=== PATIENT | female | born 1955 | race Caucasian/White ===

== ENCOUNTER 2016-11-22 17:13 | Emergency (ER) | payer BC, OTHER ==
[~2016-11-22] VITALS: Ht 170.2 cm; Wt 54.9 kg
--- NOTE | ~2016-11-22 | EKG ---
[address] [address] ELECTROCARDIOGRAM REPORT Name: RANDYLIZABETHZASYDNEY [id number] Admission: 11/22/16 Attend Phys: Discharge: 11/22/16 Date of : 55 Report #: [id number] THIS REPORT FOR: //name// [facility] ED Test Date: 2016-11-22 Test Time: 17:43:39 Pat Name: SYDNEY STEINBERG Department: Room: Gender: F Metal Inspector: [id number] : 1955 Requested By: Finesse Francis Order Number: [id number] MD: Bret Silva Measurements Intervals [place] Rate: 76 P: 40 TN: 147 QRS: 37 QRSD: 80 T: 65 QT: 385 QTc: 433 Interpretive Statements Sinus rhythm Compared to ECG 08/23/2016 09:33:51 Possible ischemia no longer present Electronically Signed On 11-23-2016 8:24:08 KENNEL WORKER by Bret Silva [email or web address] <ELECTRONICALLY SIGNED> By: Bret Silva MD 11/23/16823 42 42 Bret Silva MD /DEMARIO
[~2016-11-22 17:13] MED LIST: AMBIEN 5 MG TABL5 M1 PO; AMLODIPINE BESYL5 M1 PO; CIPROFLOXACIN500 M1 PO; DIPHENHYDRAM50 MG/M2 IV PUSH; EFFEXOR XR37.5 MG PO; FLAGYL500 MG PO; GLUCOPHAGE XR500 MG PO; GLUCOTROL5 MG PO; HYDROCODONE-AP1 EAC6 PO; K-DUR 20 MEQ T20 MEQ PO; LEVEMIR SUBQ; LISINOPRIL20 MG PO; MAGNESIUM OXID400 MG PO; MOBIC7.5 MG PO; NORCO 5-325 TA1 EACH PO; NORVASC 5 MG TAB5 MG PO; NOVOLOG100 UNIT/1 SUBQ; ONDANSETRON HCL4 M1 IV PUSH; ONDANSETRON HCL4 M1 PO; PERCOCET 5-3251 EACH PO; POTASSIUM20 PO; PROTONIX40 M1 PO; REGLAN 10 MG TA10 MG PO; TRADJENTA5 MG PO; TRAZODONE HCL50 MG PO; ZANTAC 150MG T150 MG; ZANTAC 150MG T150 MG PO; ZOFRAN ODT4 MG PO
[2016-11-22 17:40] LABS: URINE BILIRUBIN NEGATIVE (Negative); URINE BLOOD NEGATIVE (Negative); URINE COLOR YELLOW; URINE GLUCOSE-RANDOM* 2+ (Negative); URINE KETONES 1+ (Negative); URINE LEUKOCYTES-REFLEX TRACE (Negative); URINE PROTEIN (DIPSTICK) NEGATIVE (Negative); URINE UROBILINOGEN 0.2 E.U./dl (0.2-1.0)
[2016-11-22 17:55] LABS: ABSOLUTE NEUTROPHILS 6.5 thou/uL (1.4-8.2); BASOPHILS 0.8 % (0.0-2.0); EOSINOPHILS 2.9 % (0.0-3.0); HEMATOCRIT 32.3 % (37.0-47.0); HEMOGLOBIN 10.8 gm/dL (12.0-15.0); LYMPHOCYTES 17.6 % (24.0-44.0); MANUAL DIFF NO; MCH 29.1 pg (26.0-34.0); MCHC 33.5 % (28.0-37.0); MCV 86.7 fL (80.0-100.0); MONOCYTES 6.3 % (1.0-8.0); PLATELET COUNT 371 thou/uL (150-400); POLYS 72.4 % (36.0-66.0); RBC 3.72 mil/uL (4.20-5.00); RDW 15.8 % (10.5-14.5)
[2016-11-22 18:03] LABS: CALCIUM 9.5 mg/dL (8.5-10.1); CREATININE 0.8 mg/dL (0.6-1.3); POTASSIUM 4.5 mmol/L (3.5-5.1)
[2016-11-22 18:10] LABS: ALBUMIN 3.6 g/dL (3.4-5.0); TOTAL BILIRUBIN 0.4 mg/dL (<0.1-1.0); TOTAL PROTEIN 7.5 g/dL (6.4-8.2)
[2016-11-22] MEDS ORDERED: POTASSIUM20 MEQ/15 PO (18:14)
[2016-12-14] MEDS ORDERED: NEXIUM40 MG PO (10:28)
[2016-12-14] MEDS ORDERED: ERYTHROMYCIN250 M1 PO (10:28)
== END 2016-11-22 19:16 | disposition home or self-care (01) ==
LOC: ER 17:13
PROVIDERS: Emergency Medicine
DX: R53.1 Weakness (principal); E11.9 Type 2 diabetes mellitus without complications; Z90.49 Acquired absence of other specified parts of digestive tract; Z90.81 Acquired absence of spleen

== ENCOUNTER 2017-06-05 14:00 | Inpatient (IN) | payer BC, OTHER ==
[~2017-06-05] VITALS: Ht 167.6 cm; Wt 63.7 kg
[~2017-06-05 14:00] MED LIST changes: +ERYTHROMYCIN250 M1 PO; +NEXIUM40 MG PO; +POTASSIUM20 MEQ/15 PO
[2017-06-05 14:01] VITALS: BP 129/73
[2017-06-05 14:40] LABS: ABSOLUTE NEUTROPHILS 6.2 thou/uL (1.4-8.2); BASOPHILS 0.8 % (0.0-2.0); EOSINOPHILS 0.5 % (0.0-3.0); HEMATOCRIT 27.6 % (37.0-47.0); HEMOGLOBIN 8.8 gm/dL (12.0-15.0); LYMPHOCYTES 15.8 % (24.0-44.0); MCH 23.9 pg (26.0-34.0); MCHC 31.9 g/dL (28.0-37.0); MCV 75.1 fL (80.0-100.0); MONOCYTES 7.1 % (1.0-8.0); PLATELET COUNT 403 thou/uL (150-400); POLYS 75.8 % (36.0-66.0); RBC 3.68 mil/uL (4.20-5.00); RDW 17.3 % (10.5-14.5); WBC 8.2 thou/uL (4.0-11.0)
[2017-06-05 14:42] LABS: MANUAL DIFF NO
[2017-06-05 14:48] LABS: CALCIUM 9.6 mg/dL (8.5-10.1); CREATININE 1.1 mg/dL (0.6-1.0)
[2017-06-05 14:52] LABS: ALBUMIN 3.5 g/dL (3.4-5.0); TOTAL BILIRUBIN 0.6 mg/dL (<0.1-1.0); TOTAL PROTEIN 8.1 g/dL (6.4-8.2)
[2017-06-05 16:51] LABS: URINE BILIRUBIN NEGATIVE (Negative); URINE BLOOD TRACE (Negative); URINE COLOR YELLOW; URINE GLUCOSE-RANDOM* 2+ (Negative); URINE KETONES TRACE (Negative); URINE LEUKOCYTES-REFLEX TRACE (Negative); URINE PROTEIN (DIPSTICK) NEGATIVE (Negative); URINE UROBILINOGEN 0.2 E.U./dl (0.2-1.0)
[2017-06-05 17:21] VITALS: BP 121/69
[2017-06-05 18:00] VITALS: BP 152/89
[2017-06-05] MEDS ORDERED: LEVEMIR SUBQ (18:20)
[2017-06-05] MEDS ORDERED: CYMBALTA30 MG PO (18:21)
[2017-06-05 20:20] VITALS: BP 152/84
[2017-06-06 00:20] VITALS: BP 141/88
[2017-06-06 04:00] VITALS: BP 118/78
[2017-06-06 05:49] LABS: HEMATOCRIT 23.7 % (37.0-47.0); HEMOGLOBIN 7.7 gm/dL (12.0-15.0); MCH 24.1 pg (26.0-34.0); MCHC 32.2 g/dL (28.0-37.0); MCV 74.7 fL (80.0-100.0); RBC 3.18 mil/uL (4.20-5.00); RDW 16.8 % (10.5-14.5); WBC 8.2 thou/uL (4.0-11.0)
[2017-06-06 05:55] LABS: CALCIUM 8.7 mg/dL (8.5-10.1); CREATININE 0.8 mg/dL (0.6-1.0); POTASSIUM 3.7 mmol/L (3.5-5.1)
[2017-06-06 07:40] VITALS: BP 123/77
[2017-06-06] MEDS ORDERED: AMBIEN 5 MG TABL5 MG PO (07:58)
[2017-06-06 15:39] VITALS: BP 196/106
[2017-06-06 19:56] VITALS: BP 152/82
[2017-06-07 03:28] VITALS: BP 166/95
[2017-06-07 08:00] VITALS: BP 146/82
[2017-06-07 09:13] LABS: HEMOGLOBIN 7.6 gm/dL (12.0-15.0); MCH 23.9 pg (26.0-34.0); MCHC 31.5 g/dL (28.0-37.0); MCV 75.8 fL (80.0-100.0); RBC 3.16 mil/uL (4.20-5.00); RDW 17.1 % (10.5-14.5); WBC 7.5 thou/uL (4.0-11.0)
[2017-06-07 09:23] LABS: CALCIUM 8.3 mg/dL (8.5-10.1); CREATININE 0.6 mg/dL (0.6-1.0); POTASSIUM 3.3 mmol/L (3.5-5.1)
[2017-06-07 16:49] VITALS: BP 171/92
[2017-06-07 19:48] VITALS: BP 152/79
[2017-06-08 04:13] VITALS: BP 164/87
[2017-06-08 08:00] VITALS: BP 152/82
[2017-06-08 09:40] LABS: HEMATOCRIT 23.3 % (37.0-47.0); HEMOGLOBIN 7.2 gm/dL (12.0-15.0); MCH 23.4 pg (26.0-34.0); MCV 75.5 fL (80.0-100.0); RBC 3.09 mil/uL (4.20-5.00); RDW 17.4 % (10.5-14.5); WBC 6.5 thou/uL (4.0-11.0)
[2017-06-08 09:55] LABS: % SATURATION 6 % (20-39); CALCIUM 8.5 mg/dL (8.5-10.1); CREATININE 0.8 mg/dL (0.6-1.0); IRON 19 ug/dL (50-170); POTASSIUM 3.3 mmol/L (3.5-5.1); TIBC 316 ug/dL (250-450); UIBC 297 ug/dL
[2017-06-08 10:07] LABS: FOLIC ACID 12.3 ng/mL (8.6-58.9)
[2017-06-08 16:00] VITALS: BP 176/77
[2017-06-08 20:05] VITALS: BP 185/99
[2017-06-08 22:29] VITALS: BP 135/78; BP 177/94
[2017-06-09 04:00] VITALS: BP 196/96
[2017-06-09 06:35] VITALS: BP 188/89; BP 188/97
[2017-06-09 07:45] VITALS: BP 124/63
[2017-06-09 08:51] LABS: HEMATOCRIT 30.7 % (37.0-47.0); MCH 24.8 pg (26.0-34.0); MCHC 31.8 g/dL (28.0-37.0); RBC 3.94 mil/uL (4.20-5.00); WBC 6.9 thou/uL (4.0-11.0)
[2017-06-09 08:52] LABS: HEMOGLOBIN 9.8 gm/dL (12.0-15.0)
[2017-06-09 09:15] VITALS: BP 111/55
[2017-06-09 16:18] VITALS: BP 169/103
[2017-06-09 20:15] VITALS: BP 153/85
[2017-06-10 04:15] VITALS: BP 197/106
[2017-06-10 08:35] VITALS: BP 96/49
[2017-06-10 10:15] VITALS: BP 112/65
[2017-06-10 11:25] VITALS: BP 123/79
[2017-06-10 11:55] LABS: HEMATOCRIT 28.9 % (37.0-47.0); HEMOGLOBIN 9.4 gm/dL (12.0-15.0); MCH 25.1 pg (26.0-34.0); MCHC 32.5 g/dL (28.0-37.0); MCV 77.3 fL (80.0-100.0); RBC 3.74 mil/uL (4.20-5.00); RDW 18.5 % (10.5-14.5)
[2017-06-10 12:02] LABS: CALCIUM 9.2 mg/dL (8.5-10.1); CREATININE 0.9 mg/dL (0.6-1.0); POTASSIUM 4.1 mmol/L (3.5-5.1)
[2017-06-10 20:00] VITALS: BP 188/94
[2017-06-10 23:00] VITALS: BP 96/54
[2017-06-11 04:00] VITALS: BP 150/89
[2017-06-11 05:07] LABS: HEMATOCRIT 27.6 % (37.0-47.0); HEMOGLOBIN 8.8 gm/dL (12.0-15.0); MCH 24.9 pg (26.0-34.0); MCHC 31.9 g/dL (28.0-37.0); MCV 78.2 fL (80.0-100.0); RBC 3.53 mil/uL (4.20-5.00); RDW 19.1 % (10.5-14.5); WBC 7.9 thou/uL (4.0-11.0)
[2017-06-11 05:19] LABS: CREATININE 0.8 mg/dL (0.6-1.0); POTASSIUM 3.7 mmol/L (3.5-5.1)
[2017-06-11 08:35] VITALS: BP 140/71
[2017-06-11 16:40] VITALS: BP 151/85
[2017-06-11 20:00] VITALS: BP 158/85
[2017-06-12 04:00] VITALS: BP 151/87
[2017-06-12 05:18] LABS: HEMATOCRIT 27.7 % (37.0-47.0); MCH 25.1 pg (26.0-34.0); MCHC 32.3 g/dL (28.0-37.0); MCV 77.5 fL (80.0-100.0); RBC 3.58 mil/uL (4.20-5.00); RDW 19.2 % (10.5-14.5); WBC 7.9 thou/uL (4.0-11.0)
[2017-06-12 05:31] LABS: CALCIUM 8.5 mg/dL (8.5-10.1); CREATININE 0.6 mg/dL (0.6-1.0); POTASSIUM 3.6 mmol/L (3.5-5.1)
[2017-06-12 08:00] VITALS: BP 138/93
[2017-06-12 13:40] VITALS: BP 78/49
[2017-06-12] MEDS ORDERED: MIRALAX17 GM PO (15:21)
[2017-06-12] MEDS ORDERED: NEXIUM40 MG PO (15:21)
[2017-06-12] MEDS ORDERED: CALTRATE-600 W1 EACH PO (15:21)
[2017-06-12] MEDS ORDERED: IRON325 PO (15:21)
[2017-06-12] MEDS ORDERED: COLACE100 MG PO (15:21)
[2017-06-12] MEDS ORDERED: COZAAR 25 MG TA25 M1 PO (15:21)
[2017-06-12] MEDS ORDERED: CARAFATE 11 GM/10 M1 PO (15:21)
[2017-06-12] MEDS ORDERED: ZOFRAN ODT4 MG DISSOLVE (15:22)
== END 2017-06-12 17:20 | DRG 563 ==
LOC: ER 14:00 → EROBS 16:44 → 3N 16:44
PROVIDERS: Emergency Medicine; Hospitalist; Internal Medicine
PROC: 0D758ZZ Dilation of Esophagus, Via Natural or Artificial Opening Endoscopic (ICD-10-PCS; principal; 2017-06-02)
PROC: 30233N1 Transfusion of Nonautologous Red Blood Cells into Peripheral Vein, Percutaneous Approach (ICD-10-PCS; 2017-06-05)
DX: S42.294A Other nondisplaced fracture of upper end of right humerus, initial encounter for closed fracture (principal); N17.9 Acute kidney failure, unspecified; K22.2 Esophageal obstruction; W18.39XA Other fall on same level, initial encounter; E11.43 Type 2 diabetes mellitus with diabetic autonomic (poly)neuropathy; K31.84 Gastroparesis; E11.42 Type 2 diabetes mellitus with diabetic polyneuropathy; E11.319 Type 2 diabetes mellitus with unspecified diabetic retinopathy without macular edema; D50.9 Iron deficiency anemia, unspecified; K21.0 Gastro-esophageal reflux disease with esophagitis; E86.0 Dehydration; I10 Essential (primary) hypertension; E11.649 Type 2 diabetes mellitus with hypoglycemia without coma; R13.10 Dysphagia, unspecified; H54.8 Legal blindness, as defined in USA; Z79.899 Other long term (current) drug therapy; Y93.89 Activity, other specified; Y92.89 Other specified places as the place of occurrence of the external cause; Y99.8 Other external cause status; Z79.4 Long term (current) use of insulin; Z86.718 Personal history of other venous thrombosis and embolism; Z79.01 Long term (current) use of anticoagulants; Z90.81 Acquired absence of spleen; Z90.49 Acquired absence of other specified parts of digestive tract; Z86.010 Personal history of colon polyps
CPT/HCPCS: 10094; 62110; 62900; 70005

== ENCOUNTER 2018-04-08 12:53 | Inpatient (IN) | payer OTHER ==
[~2018-04-08] VITALS: Ht 172.7 cm; Wt 66.2 kg
--- NOTE | ~2018-04-08 | EKG ---
[address] [address] ELECTROCARDIOGRAM REPORT Name: SYDNEY STEINBERG Room #: 426-P ADM IN .R.#: [id number] Admission: 04/08/18 Attend Phys: Gary Haq MD Discharge: Date of : 55 Report #: [id number] THIS REPORT FOR: //name// [facility] ED Test Date: 2018-04-08 Test Time: 12:59:18 Pat Name: SYDNEY STEINBERG Department: Room: Gender: F Action Finisher: : 1955 Requested By: Solo Recinos Order Number: [id number] MD: Bret Silva Measurements Intervals [place] Rate: 95 P: 69 MN: 133 QRS: 38 QRSD: 82 T: 43 QT: 360 QTc: 453 Interpretive Statements Sinus rhythm Baseline wander in lead(s) V1 Compared to ECG 12/10/2016 14:39:21 Ventricular premature complex(es) no longer present Electronically Signed On 04-08-2018 18:42:20 CDT by Bret Silva [email or web address] <ELECTRONICALLY SIGNED> By: Bret Silva MD 04/08/18 1842 1259 1259 Bret Silva MD /EPI
--- NOTE | ~2018-04-08 | HC ---
[facility] [place] [address] CONSULTATION Name: SYDNEY STEINBERG Room #: 227-P [facility] IN M.R.#: [id number] Admission: 04/08/18 Attend Phys: Gary Haq MD Discharge: 04/14/18 Date of : 55 Report #: [id number] THIS REPORT FOR: //name// CC: Luis F Mack DATE OF SERVICE: 04/12/2018 GENERAL SURGERY CONSULT REFERRING PROVIDER: Gloria Lombardi DO REASON FOR CONSULTATION: Nausea and vomiting. HISTORY OF PRESENT ILLNESS: The patient is a 62-year-old thin female with a past surgical history approximately 40 years ago what sounds like a vertical stapled gastroplasty done via the open technique. The patient lost considerable weight and then had weight regained for which she then underwent what sounds like gastric banding with emergent reexploration on postoperative day #1 due to gastric perforation with explantation of the gastric band at that time. The patient was exquisitely septic and hospitalized for 7 weeks and is unsure of what type of repair was performed at that time, which again was nearly 35 years ago. The patient was in her usual state of health for the past several years until approximately 1.5 years ago when she developed severe sudden onset nausea, vomiting and abdominal pain with workup showing severely delayed gastric emptying, even while on erythromycin. Her most recent gastric emptying study showed only 1% emptying at [address] scan showed mild colitis. The patient underwent an EGD this morning showing severe erosive esophagitis with a stricture and gastritis for which she underwent dilatation of her esophageal stricturing. In addition, the patient had abnormal gastric anatomy seen with 2 discrete lumens able to be intubated, both arrive at the prepyloric region. As the patient has severe gastroparesis with nausea, vomiting and esophageal stricturing in the setting of abnormal gastric anatomy, I am asked to evaluate from a surgical standpoint. PAST MEDICAL HISTORY: Severe gastroparesis with chronic nausea and vomiting; GERD; esophageal stricturing; intermittent dysphagia; prior ischemic colitis, treated conservatively; hypertension; diabetes mellitus; prior DVT; peripheral blindness; neuropathy; iron deficiency anemia. PAST SURGICAL HISTORY: Vertical stapled gastroplasty with lap band placement and emergent reexploration as well as prior splenectomy, cholecystectomy and left oophorectomy. HOME MEDICATIONS: Calcium, hydrocodone, MiraLax, Cymbalta, erythromycin, [address] [address] CONSULTATION Name: SYDNEY STEINBERG Room #: 227-P [facility] IN [facility].#: [id number] Admission: 04/08/18 Attend Phys: Gary Haq MD Discharge: 04/14/18 Date of : 55 Report #: [id number] insulin, metformin, Zantac, Ambien, Nexium and iron. ALLERGIES: No known drug allergies. SOCIAL HISTORY: The patient does not utilize tobacco, alcohol or illicit drugs. FAMILY HISTORY: Reviewed and noncontributory. REVIEW OF SYSTEMS: GENERAL: The patient denies nocturnal fevers or chills. HEENT: No change in vision, change in hearing. NECK: No swelling, but difficulty swallowing. HEART: No chest pain or palpitations. LUNGS: No cough or shortness of breath. ABDOMEN: Chronic abdominal pain, nausea and vomiting. GENITOURINARY: No dysuria or hematuria. ENDOCRINE: No polyuria or polydipsia. HEMATOLOGIC: No history of bleeding or easy bruising. EXTREMITIES: No history of weakness or limited range of motion. NEUROLOGIC: No history of syncope or near syncopal episodes. SKIN AND INTEGUMENT: No history of abnormal lesions or moles. PSYCHIATRIC: Significant history of depression with suicidal ideation. PHYSICAL EXAMINATION: VITAL SIGNS: Temperature 98.9, pulse 93, respirations 17, blood pressure 120/73. She weighs 146 pounds. GENERAL: Alert and oriented, in no acute distress. HEENT: Normocephalic, atraumatic. Pupils equal, round, reactive to light. NECK: Supple, without lymphadenopathy. Trachea midline. HEART: Regular rate and rhythm. LUNGS: Clear to auscultation bilaterally. ABDOMEN: Soft, nondistended. She does not complain of abdominal pain per se, but does have generalized discomfort. No guarding, rebound or peritoneal signs or symptoms and her wounds are well healed. GENITOURINARY: Normal external female genitalia. EXTREMITIES: No clubbing, cyanosis or edema. NEUROLOGIC: Cranial nerves 2-12 are grossly intact. PSYCHIATRIC: Normal mood and affect, although she does have suicidal ideation, stating she wants to commit suicide by insulin overdose. SKIN AND INTEGUMENT: No abnormal lesions or moles. LABORATORY AND X-RAY DATA: Most recent CBC showed a white blood cell count of 6.2 thousand, hemoglobin 10.1, platelets 271,000. Creatinine was 0.6. EGD as per HPI shows abnormal gastric anatomy and CT scan shows prior colitis. ASSESSMENT AND PLAN: A 62-year-old female with a complex past [facility] [address] [place] [address] CONSULTATION Name: SYDNEY STEINBERG Room #: 227-P [facility] IN M.Ammy.#: [id number] Admission: 04/08/18 Attend Phys: Gary Haq MD Discharge: 04/14/18 Date of : 55 Report #: [id number] surgical history of the upper GI tract, who has chronic abdominal pain, nausea, vomiting and an esophageal stricture and then underwent dilatation as well as severe gastroparesis. At this time, I will obtain an upper GI swallow to further delineate her anatomy and we will leave further recommendations pending that result. I did carry out a greater than 60-minute discussion with the patient today at the bedside gathering her past medical and surgical history, performing a thorough physical exam as well as discussing all of the above with her as well as with Dr. Lombardi of the Gastroenterology Service. I sincerely appreciate this consult. I will follow closely and leave any further recommendations in the patient's chart as appropriate. By: 1140 1738 Freddie Beauchamp MD, FACS /nt
--- NOTE | ~2018-04-08 | PATH ---
[facility] [address] [place] [address] PATHOLOGY RPT PROCEDURE Name: CHINYERE STEINBERG Room #: 426-P ADM IN M.R.#: [id number] Admission: 04/08/18 Date of : 55 Discharge: Report #: [id number] Path Case #: [id number] [facility] Accession Number: [id number] . 01 Material submitted: . ANTRAL BX - R/O H. PYLORI . 01 Post-operative diagnosis: . Gastritis. . 02 Diagnosis: Gastric mucosa, antrum gastritis, endoscopic biopsy: - Marked reactive gastropathy associated with fibrotic lamina propria. - No active fibrinopurulent material present in biopsy tissue. - Negative for intestinal metaplasia or atrophy. - Negative for Helicobacter pylori (properly controlled immunohistochemical stain performed). . (IUV:mml; 04/12/2018) QLM/04/12/2018 . 02 Electronically signed: . Mae Molina MD, Pathologist NPI- [id number] . 01 Gross description: . Received in formalin labeled "Alaina Chinyere, antral BX-rule out H. pylori," are 3 segments of anders soft tissue measuring 0.6 x 0.5 x 0.2 cm in aggregate dimensions and ranging from 0.3-0.4 cm in maximum dimension. The specimen is submitted entirely in cassette A1. (TSD; 04/11/2018) TOB/TOB . 02 Pathologist provided ICD-10: K31.9 . 02 CPT . 525720, H38419 Performed at: [address], [place], [place] [id number] MD Justin Hamilton MD Phone: [phone] Performed at: [address] [id number] MD Mae Molina MD Phone: [phone]
[~2018-04-08 12:53] MED LIST changes: +AMBIEN 5 MG TABL5 MG PO; +CALTRATE-600 W1 EACH PO; +CARAFATE 11 GM/10 M1 PO; +COLACE100 MG PO; +COZAAR 25 MG TA25 M1 PO; +CYMBALTA30 MG PO; +IRON325 PO; +MIRALAX17 GM PO; +ZOFRAN ODT4 MG DISSOLVE
[2018-04-08 13:36] VITALS: BP 148/91
[2018-04-08 14:12] LABS: HEMATOCRIT 34.2 % (37.0-47.0); HEMOGLOBIN 11.3 gm/dL (12.0-15.0); MCH 30.1 pg (26.0-34.0); MCHC 33.2 g/dL (28.0-37.0); MCV 90.7 fL (80.0-100.0); PLATELET COUNT 313 thou/uL (150-400); RBC 3.77 mil/uL (4.20-5.00); RDW 13.7 % (10.5-14.5); WBC 6.3 thou/uL (4.0-11.0)
[2018-04-08 14:14] LABS: URINE BILIRUBIN NEGATIVE (Negative); URINE BLOOD 1+ (Negative); URINE COLOR YELLOW; URINE GLUCOSE-RANDOM* TRACE (Negative); URINE KETONES 3+ (Negative); URINE PROTEIN (DIPSTICK) TRACE (Negative); URINE SPECIFIC GRAVITY 1.025 (1.005-1.035); URINE UROBILINOGEN 0.2 E.U./dl (0.2-1.0)
[2018-04-08 14:15] LABS: CALCIUM 9.1 mg/dL (8.5-10.1); CREATININE 0.7 mg/dL (0.6-1.0); MAGNESIUM 1.7 mg/dL (1.8-2.4); POTASSIUM 3.6 mmol/L (3.5-5.1)
[2018-04-08 14:18] LABS: URINE CLARITY SLIGHTLY CLOUDY; URINE LEUKOCYTES-REFLEX 3+ (Negative); URINE NITRITE-REFLEX POSITIVE (Negative)
[2018-04-08 14:23] LABS: CASTS None Seen /LPF (None Seen); SQUAMOUS 4-10 Moderate /LPF (0-3); URINE WBC-REFLEX >25 Many /HPF (0-5)
[2018-04-08 14:26] LABS: AMORPHOUS PHOSPHATES Moderate /LPF (None Seen); URINE RBC 0-2 Rare /HPF (0-2); YEAST-REFLEX Present (None Seen)
[2018-04-08 14:40] LABS: ABSOLUTE NEUTROPHILS 4.4 thou/uL (1.4-8.2)
[2018-04-08] MEDS ORDERED: LANTUS100 UNIT/M SUBQ (15:06)
[2018-04-08] MEDS ORDERED: NEXIUM40 MG PO (15:08)
[2018-04-08 17:19] VITALS: BP 181/101
[2018-04-08 17:38] VITALS: BP 191/87
[2018-04-08 21:30] VITALS: BP 150/76
[2018-04-09 05:00] VITALS: BP 127/66
[2018-04-09 06:03] LABS: HEMATOCRIT 30.5 % (37.0-47.0); HEMOGLOBIN 10.3 gm/dL (12.0-15.0); MCH 30.5 pg (26.0-34.0); MCHC 33.8 g/dL (28.0-37.0); RBC 3.39 mil/uL (4.20-5.00); RDW 13.6 % (10.5-14.5); WBC 6.5 thou/uL (4.0-11.0)
[2018-04-09 06:15] LABS: CALCIUM 8.5 mg/dL (8.5-10.1); CREATININE 0.7 mg/dL (0.6-1.0); POTASSIUM 3.3 mmol/L (3.5-5.1)
[2018-04-09 07:45] VITALS: BP 140/69
[2018-04-09 19:23] VITALS: BP 142/81
[2018-04-10 03:42] VITALS: BP 142/80
[2018-04-10 05:43] LABS: HEMOGLOBIN 10.1 gm/dL (12.0-15.0); MCH 30.6 pg (26.0-34.0); MCHC 33.7 g/dL (28.0-37.0); MCV 90.6 fL (80.0-100.0); RBC 3.31 mil/uL (4.20-5.00); RDW 13.4 % (10.5-14.5); WBC 6.2 thou/uL (4.0-11.0)
[2018-04-10 06:02] LABS: CALCIUM 8.2 mg/dL (8.5-10.1); CREATININE 0.6 mg/dL (0.6-1.0); POTASSIUM 3.1 mmol/L (3.5-5.1)
[2018-04-10 07:56] VITALS: BP 169/85
[2018-04-10 15:56] VITALS: BP 187/98
[2018-04-10 20:00] VITALS: BP 137/88
[2018-04-11 04:22] VITALS: BP 130/65
[2018-04-11 07:53] VITALS: BP 158/92
[2018-04-11 20:03] VITALS: BP 188/81
[2018-04-11 21:31] VITALS: BP 121/70
[2018-04-12 04:06] VITALS: BP 126/85
[2018-04-12 11:00] VITALS: BP 120/73
[2018-04-12 16:34] VITALS: BP 171/103
[2018-04-13 07:37] LABS: HEMATOCRIT 30.9 % (37.0-47.0); HEMOGLOBIN 10.5 gm/dL (12.0-15.0); MCH 30.3 pg (26.0-34.0); MCHC 33.9 g/dL (28.0-37.0); MCV 89.2 fL (80.0-100.0); RBC 3.46 mil/uL (4.20-5.00); WBC 5.8 thou/uL (4.0-11.0)
[2018-04-13 07:46] LABS: CALCIUM 8.4 mg/dL (8.5-10.1); CREATININE 0.6 mg/dL (0.6-1.0)
[2018-04-13 07:57] LABS: POTASSIUM 2.7 mmol/L (3.5-5.1)
[2018-04-13 08:12] VITALS: BP 137/79
[2018-04-13 19:25] VITALS: BP 167/92
[2018-04-14 01:46] LABS: HEMATOCRIT 28.5 % (37.0-47.0); HEMOGLOBIN 9.7 gm/dL (12.0-15.0); MCH 30.7 pg (26.0-34.0); MCHC 34.3 g/dL (28.0-37.0); MCV 89.6 fL (80.0-100.0); RBC 3.18 mil/uL (4.20-5.00); RDW 13.7 % (10.5-14.5); WBC 6.4 thou/uL (4.0-11.0)
[2018-04-14 01:54] LABS: CALCIUM 8.3 mg/dL (8.5-10.1); CREATININE 0.6 mg/dL (0.6-1.0); POTASSIUM 3.1 mmol/L (3.5-5.1)
[2018-04-14 08:12] VITALS: BP 147/83
[2018-04-14] MEDS ORDERED: CARAFATE 11 GM/10 M1 PO (14:11)
[2018-04-14] MEDS ORDERED: PROTONIX40 M1 PO (14:11)
[2018-04-14] MEDS ORDERED: REGLAN 10 MG TA10 MG PO (14:20)
[2018-04-14] MEDS ORDERED: LEVAQUIN 750 M750 MG PO (14:25)
[2018-04-14] MEDS ORDERED: FLAGYL500 M1 PO (14:25)
[2018-04-14 14:26] VITALS: BP 147/83
== END 2018-04-14 17:32 | disposition home or self-care (01) | DRG 74 ==
LOC: ER 12:53 → EROBS 16:27 → 4E 16:27 → ER 17:41 → 4E 17:50 → SICU 04-12 22:33
PROVIDERS: Hospitalist; Physician Assistant
PROC: 0D758ZZ Dilation of Esophagus, Via Natural or Artificial Opening Endoscopic (ICD-10-PCS; principal; 2018-04-11)
PROC: 0DB68ZX Excision of Stomach, Via Natural or Artificial Opening Endoscopic, Diagnostic (ICD-10-PCS; principal; 2018-04-11)
DX: E11.43 Type 2 diabetes mellitus with diabetic autonomic (poly)neuropathy (principal); N39.0 Urinary tract infection, site not specified; K22.10 Ulcer of esophagus without bleeding; K21.0 Gastro-esophageal reflux disease with esophagitis; K29.70 Gastritis, unspecified, without bleeding; K52.9 Noninfective gastroenteritis and colitis, unspecified; H54.8 Legal blindness, as defined in USA; F32.9 Major depressive disorder, single episode, unspecified; E11.319 Type 2 diabetes mellitus with unspecified diabetic retinopathy without macular edema; K22.2 Esophageal obstruction; K31.84 Gastroparesis; R63.4 Abnormal weight loss; Z68.22 Body mass index [BMI] 22.0-22.9, adult; Z90.49 Acquired absence of other specified parts of digestive tract; Z90.81 Acquired absence of spleen; Z98.84 Bariatric surgery status; Z79.4 Long term (current) use of insulin; Z79.899 Other long term (current) drug therapy
CPT/HCPCS: 10084; 15002; 62110; 62900; 70005

== ENCOUNTER 2018-05-08 09:57 | Emergency (ER) | payer OTHER ==
[~2018-05-08] VITALS: Ht 172.7 cm; Wt 64.9 kg
--- NOTE | ~2018-05-08 | EKG ---
[address] [address] ELECTROCARDIOGRAM REPORT Name: SYDNEY STEINBERG [facility] [id number] Admission: 05/08/18 Attend Phys: Discharge: 05/08/18 Date of : 55 Report #: [id number] THIS REPORT FOR: //name// [facility] ED Test Date: 2018-05-08 Test Time: 10:15:14 Pat Name: SYDNEY STEINBERG Department: Room: Gender: F Search Engine Optimizer: JENNIFER : 1955 Requested By: Solo Recinos Order Number: [id number] MD: Yung Rizvi Measurements Intervals [place] Rate: 80 P: 67 WI: 140 QRS: 38 QRSD: 94 T: 63 QT: 372 QTc: 430 Interpretive Statements Sinus rhythm Normal tracing Compared to ECG 04/08/2018 12:59:18 No significant changes Electronically Signed On 05-08-2018 16:49:48 CDT by Yung Rizvi [email or web address] <ELECTRONICALLY SIGNED> By: Yung Rizvi MD, [facility] 05/08/18 1649 1015 1015 Yung Rizvi MD, FACC /EPI
[~2018-05-08 09:57] MED LIST changes: +FLAGYL500 M1 PO; +LANTUS100 UNIT/M SUBQ; +LEVAQUIN 750 M750 MG PO
[2018-05-08 10:27] LABS: HEMATOCRIT 34.6 % (37.0-47.0); HEMOGLOBIN 11.3 gm/dL (12.0-15.0); MCH 29.4 pg (26.0-34.0); MCHC 32.7 g/dL (28.0-37.0); MCV 89.9 fL (80.0-100.0); PLATELET COUNT 315 thou/uL (150-400); RBC 3.85 mil/uL (4.20-5.00); RDW 14.3 % (10.5-14.5); WBC 8.6 thou/uL (4.0-11.0)
[2018-05-08 10:28] LABS: URINE BLOOD NEGATIVE (Negative); URINE CLARITY CLEAR; URINE COLOR YELLOW; URINE GLUCOSE-RANDOM* 2+ (Negative); URINE KETONES TRACE (Negative); URINE LEUKOCYTES-REFLEX NEGATIVE (Negative); URINE NITRITE-REFLEX NEGATIVE (Negative); URINE PROTEIN (DIPSTICK) NEGATIVE (Negative); URINE SPECIFIC GRAVITY 1.025 (1.005-1.035); URINE UROBILINOGEN 0.2 E.U./dl (0.2-1.0)
[2018-05-08 10:30] LABS: ICTOTEST (BILI CONFIRMATORY) Negative (Negative); URINE BILIRUBIN NEGATIVE (Negative)
[2018-05-08 10:41] LABS: ANION GAP 2 mmol/L (7-16); BUN 24 mg/dL (7-18); CALCIUM 10.2 mg/dL (8.5-10.1); CHLORIDE 103 mmol/L (98-107); CO2 33 mmol/L (21-32); CREATININE 0.8 mg/dL (0.6-1.0); GLUCOSE 247 mg/dL (74-106); POTASSIUM 3.9 mmol/L (3.5-5.1); SODIUM 138 mmol/L (136-145)
[2018-05-08 10:50] LABS: ALBUMIN 3.2 g/dL (3.4-5.0); SGOT 34 U/L (15-37); SGPT 36 U/L (30-65); TOTAL BILIRUBIN 0.5 mg/dL (<0.1-1.0); TOTAL PROTEIN 7.6 g/dL (6.4-8.2); TROPONIN-I <0.06 ng/mL (<0.06)
[2018-05-08 11:48] LABS: ABSOLUTE NEUTROPHILS 6.5 thou/uL (1.4-8.2); ANISOCYTOSIS SLIGHT
== END 2018-05-08 14:45 | disposition home or self-care (01) ==
LOC: ER 09:57
PROVIDERS: Physician Assistant
DX: I95.1 Orthostatic hypotension (principal); M54.9 Dorsalgia, unspecified; R53.1 Weakness; E11.40 Type 2 diabetes mellitus with diabetic neuropathy, unspecified; Z90.49 Acquired absence of other specified parts of digestive tract

== ENCOUNTER → 2018-05-09 | Outpatient (CLI) | payer OTHER ==
[~2018-05-09] VITALS: Ht 172.7 cm; Wt 63.8 kg
[2018-05-09 09:20] VITALS: BP 142/92
== END ==
LOC: SEN 08:50
DX: Z09 Encounter for follow-up examination after completed treatment for conditions other than malignant neoplasm (principal); I10 Essential (primary) hypertension; E13.40 Other specified diabetes mellitus with diabetic neuropathy, unspecified; K31.84 Gastroparesis; K29.70 Gastritis, unspecified, without bleeding; K22.2 Esophageal obstruction; R53.1 Weakness

== ENCOUNTER → 2018-05-15 | Outpatient (CLI) | payer OTHER ==
[~2018-05-15] MED LIST changes: +PREDNISONE 20 M20 MG PO
== END ==
LOC: HYPER 06:49
DX: E11.621 Type 2 diabetes mellitus with foot ulcer (principal); L97.521 Non-pressure chronic ulcer of other part of left foot limited to breakdown of skin; S80.811D Abrasion, right lower leg, subsequent encounter; E11.40 Type 2 diabetes mellitus with diabetic neuropathy, unspecified; E11.36 Type 2 diabetes mellitus with diabetic cataract; E11.43 Type 2 diabetes mellitus with diabetic autonomic (poly)neuropathy; K31.84 Gastroparesis; X58.XXXD Exposure to other specified factors, subsequent encounter; Z79.4 Long term (current) use of insulin

== ENCOUNTER 2018-05-22 09:12 | Emergency (ER) | payer OTHER ==
[~2018-05-22] VITALS: Ht 172.7 cm; Wt 62.1 kg
[~2018-05-22 09:12] MED LIST changes: -PREDNISONE 20 M20 MG PO
[2018-05-22 09:44] LABS: ABSOLUTE NEUTROPHILS 8.3 thou/uL (1.4-8.2); BASOPHILS 0.6 % (0.0-2.0); EOSINOPHILS 1.5 % (0.0-3.0); HEMATOCRIT 32.9 % (37.0-47.0); HEMOGLOBIN 10.9 gm/dL (12.0-15.0); LYMPHOCYTES 9.7 % (24.0-44.0); MCH 30.1 pg (26.0-34.0); MCHC 33.2 g/dL (28.0-37.0); MCV 90.7 fL (80.0-100.0); MONOCYTES 8.3 % (1.0-8.0); PLATELET COUNT 346 thou/uL (150-400); POLYS 79.9 % (36.0-66.0); RBC 3.63 mil/uL (4.20-5.00); RDW 15.2 % (10.5-14.5); WBC 10.3 thou/uL (4.0-11.0)
[2018-05-22 09:57] LABS: CALCIUM 8.8 mg/dL (8.5-10.1); CREATININE 0.8 mg/dL (0.6-1.0); POTASSIUM 3.9 mmol/L (3.5-5.1)
[2018-05-22 10:03] LABS: ALBUMIN 2.7 g/dL (3.4-5.0); TOTAL BILIRUBIN 0.4 mg/dL (<0.1-1.0); TOTAL PROTEIN 7.1 g/dL (6.4-8.2)
[2018-05-22 10:58] LABS: PROTIME 10.1 Seconds (9.3-11.4)
[2018-05-22] MEDS ORDERED: PERCOCET 5-3251 EACH PO (11:11)
[2018-05-22] MEDS ORDERED: PREDNISONE 20 M20 MG PO (11:12)
[2018-05-22] MEDS ORDERED: MIRALAX17 GM PO (11:15)
== END 2018-05-22 11:37 | disposition home or self-care (01) ==
LOC: ER 09:12
PROVIDERS: Physician Assistant
DX: M54.12 Radiculopathy, cervical region (principal); R51 Headache; R74.0 Nonspecific elevation of levels of transaminase and lactic acid dehydrogenase [LDH]; G62.9 Polyneuropathy, unspecified; I95.9 Hypotension, unspecified; E11.40 Type 2 diabetes mellitus with diabetic neuropathy, unspecified; E11.319 Type 2 diabetes mellitus with unspecified diabetic retinopathy without macular edema; Z90.81 Acquired absence of spleen; Z90.49 Acquired absence of other specified parts of digestive tract

== ENCOUNTER 2018-06-17 15:47 | Emergency (ER) | payer OTHER ==
[~2018-06-17] VITALS: Ht 172.7 cm; Wt 66.2 kg
[~2018-06-17 15:47] MED LIST changes: +ERYTHROCIN STE250 MG PO; +PEPCID20 MG PER TUBE; +PREDNISONE 20 M20 MG PO; +VITAMIN D1000 UNI1 PO
[2018-06-17 16:17] LABS: HEMATOCRIT 29.4 % (37.0-47.0); HEMOGLOBIN 9.7 gm/dL (12.0-15.0); MCH 29.7 pg (26.0-34.0); MCV 89.9 fL (80.0-100.0); PLATELET COUNT 496 thou/uL (150-400); RBC 3.28 mil/uL (4.20-5.00); RDW 16.9 % (10.5-14.5); WBC 7.5 thou/uL (4.0-11.0)
[2018-06-17 16:53] LABS: CALCIUM 9.3 mg/dL (8.5-10.1); CREATININE 0.7 mg/dL (0.6-1.0); POTASSIUM 4.2 mmol/L (3.5-5.1)
[2018-06-17 16:53] LABS: ABSOLUTE NEUTROPHILS 5.3 thou/uL (1.4-8.2); ANISOCYTOSIS 1+
[2018-06-23] MEDS ORDERED: LANTUS SUBQ (00:03)
== END 2018-06-17 21:35 | disposition home or self-care (01) ==
LOC: ER 15:47
PROVIDERS: Emergency Medicine
DX: E10.649 Type 1 diabetes mellitus with hypoglycemia without coma (principal); E10.40 Type 1 diabetes mellitus with diabetic neuropathy, unspecified; Z90.49 Acquired absence of other specified parts of digestive tract; Z79.4 Long term (current) use of insulin

== ENCOUNTER 2018-08-24 11:49 | Inpatient (IN) | payer OTHER ==
[~2018-08-24] VITALS: Ht 175.3 cm; Wt 65.3 kg
[2018-08-24] VITALS (7 sets, daily range): BP systolic 162–182; BP diastolic 88–104
--- NOTE | ~2018-08-24 | O ---
[facility] [place] [address] OPERATIVE REPORT Name: SYDNEY STEINBERG Room #: 454-P ADM IN M.R.#: [id number] Admission: 08/24/18 Attend Phys: Bandar Layne MD Discharge: Date of : 55 Report #: [id number] THIS REPORT FOR: //name// CC: Luis F Layne DATE OF SERVICE: 08/24/2018 PREOPERATIVE DIAGNOSIS: Left ankle open bimalleolar ankle fracture. POSTOPERATIVE DIAGNOSIS: Left ankle open bimalleolar ankle fracture. PROCEDURE: Irrigation and debridement with open reduction and internal fixation open left ankle bimalleolar fracture. SURGEON: Bandar Layne M.D. PEDIATRIC ANESTHESIOLOGIST: Lashell Orona. ANESTHESIA: General. ESTIMATED BLOOD LOSS: 10 mL. DRAINS: One Hemovac drain was placed to the wound. COMPLICATIONS: There were no complications. DESCRIPTION OF PROCEDURE: The patient brought to the operating room where she was placed under general anesthesia. Once under adequate general anesthesia, her left lower extremity was prepped and draped in a sterile manner. The extremity was elevated and a tourniquet placed to 300 mmHg. A longitudinal incision excising the open wound over the distal fibula was then made. This was then taken sharply down to the fibula. The joint as well as the fracture site were then irrigated copiously utilizing normal saline and the pulsatile lavage. Three liters of solution was run through this. The fibular fracture was then subsequently exposed and reduced with a bone reduction tenaculum. This was a transverse fracture. It was then fixed into place with two 4.0 cannulated screws placed under fluoroscopic guidance. Excellent fixation and alignment of the fibular fracture was achieved. I then proceeded medially and the medial fracture was identified. Through a 4-cm incision, exposure of the fracture site was achieved. Any hematoma was evacuated from the fracture site and a bone reduction was achieved with bone reduction tenaculums. Three 4.0 cannulated screws were then placed to fix this fracture. Satisfactory alignment was achieved in this manner as well. Once complete, the wounds were irrigated copiously with pulsatile lavage once again 3 liters of normal saline and the wounds were then closed with 2-0 Vicryl in the subcutaneous tissues and korin [address] [address] OPERATIVE REPORT Name: SYDNEY STEINBERG Room #: 454-P [facility] IN .R.#: [id number] Admission: 08/24/18 Attend Phys: Bandar Layne MD Discharge: Date of : 55 Report #: [id number] for the skin laterally where the open wound was closed with 3-0 nylon suture. A Hemovac drain had been placed prior to wound closure. The wounds were dressed with Xeroform, 4 x 4s, and sterile soft compressive dressing with a short leg splint was placed. Tourniquet was let down at approximately 1 hour. Toes were pink and warm with good capillary refill. There were no complications from the procedure. The patient tolerated the procedure well and went to recovery room without incident. <ELECTRONICALLY SIGNED> By: Bandar Layne MD 08/28/18 1235 1617 1825 Bandar Layne MD /nt
--- NOTE | ~2018-08-24 | HC ---
[facility] [address] [place] [address] CONSULTATION Name: SYDNEY FOLEY Room #: 454-P ADM IN M.R.#: [id number] Admission: 08/24/18 Attend Phys: Bandar Layne MD Discharge: Date of : 55 Report #: [id number] THIS REPORT FOR: //name// CC: Luis F Layne DATE OF SERVICE: 08/25/2018 CONSULTATION: Infectious diseases. HISTORY OF PRESENT ILLNESS: Ms. Foley is a 62-year-old white female who returns to the hospital with deterioration of her left ankle fracture. This was a closed malleolar fracture when the patient presented after a fall on 08/07. She also had a distal tibia fracture on the right leg. The patient was discharged on 08/10 to [facility] for nonweightbearing and upper extremity strengthening. She had a Cam walker boot on the left and a long leg cast on the right. The patient reports that the day prior to this readmission, the nurse removed her boot and thought the ankle looked worse. She saw her orthopedist the following day who noted that the fracture was now comminuted and open on the left. She was admitted for urgent surgery including irrigation, debridement, open reduction, and internal fixation with 3 screws. Infectious disease consultation was requested to assist with further evaluation and management. PAST MEDICAL HISTORY: Includes rheumatoid arthritis, diabetes, depression, anxiety. PAST SURGICAL HISTORY: Includes lap-band band for obesity, splenectomy, cholecystectomy, gastrostomy due to gastroparesis. She suffered fractures of both legs, as well as her right arm and closed head injury. FAMILY HISTORY: Noncontributory. SOCIAL HISTORY: The patient is , but her has to work and has not been able to give her the amount of support at home that she needs. In this setting, the patient was sent for additional rehab after multiple falls and fractures. MEDICATION RECONCILIATION: Current medications include insulin, duloxetine 30 mg daily, flu vaccine, pantoprazole 40 mg b.i.d., zolpidem 10 mg at bedtime, enoxaparin 40 mg at bedtime, vancomycin, and morphine p.r.n. REVIEW OF SYSTEMS: The patient says she does not feel very good. She is anxious, a bit nauseated. She notes that she has very little postoperative pain. She thinks the nerve block may still be active. She is having more pain [address] [address] CONSULTATION Name: SYDNEY FOLEY Room #: 454-P [facility] IN .R.#: [id number] Admission: 08/24/18 Attend Phys: Bandar Layne MD Discharge: Date of : 55 Report #: [id number] in her right leg, which did not have any recent surgery. The patient denies any new head or neck complaints. She has marked visual impairment from diabetes. She denies any cough, chest pain, shortness of breath. She denies vomiting, trouble with her bowels or abdominal pain. She denies urinary pain. PHYSICAL EXAMINATION: GENERAL: The patient appears older than her stated age, debilitated, but not in any distress. VITAL SIGNS: Normal. The patient is afebrile. SKIN: Shows no rash or lesions. ENT: Negative. HEART: Sounds normal. LUNGS: Clear. ABDOMEN: Belly thin, soft, not tender. EXTREMITIES: The patient had post-surgical dressing on the left leg going from the distal foot to the knee. There was a Hemovac drain with minimal bloody drainage exiting around the ankle. The right leg was in a long leg cast from the mid thigh to the ankle. This was then unwrapped. LABORATORY DATA: There are no laboratory studies yet. At her previous hospitalization 2 weeks ago showed BUN 24, creatinine 0.7. Cultures are taken to surgery. Results are pending. IMPRESSION: Open compound fracture of the left ankle after being in a penitentiary for 2 weeks. I concur with vancomycin, as one can anticipate nosocomial type rachid from the facility. We will await results of cultures. We will want to check a CBC and BMP after surgery. This may be important for optimal dosing of vancomycin if she requires continue therapy. I appreciate the opportunity of input in the care of this pleasant patient. I will follow over the weekend until Dr. Kennedy returns on Monday. Thank you again for this consultation. <ELECTRONICALLY SIGNED> By: Kirk Craig MD 08/26/18 2317 1859 0441 Kirk Craig MD /nt
[~2018-08-24 11:49] MED LIST changes: +CALCIUM 600 +1 EA13 PO; +HYDROCODON-ACE1 EAC7 PO; +LANTUS SUBQ; +PROTONIX40 M2 PO; +VOLTAREN GEL 1100 G2 TOP; +[UNRECOGNIZED DRUG - OTHER] PER TUBE
[2018-08-25 04:41] VITALS: BP 152/90
[2018-08-25 05:42] VITALS: BP 117/75
[2018-08-25 07:55] LABS: HEMATOCRIT 27.8 % (37.0-47.0); HEMOGLOBIN 9.1 gm/dL (12.0-15.0)
[2018-08-25 08:07] LABS: POTASSIUM 5.5 mmol/L (3.5-5.1)
[2018-08-25 08:15] VITALS: BP 127/75
[2018-08-25 20:00] VITALS: BP 847/52
[2018-08-26 05:37] LABS: RDW 16.2 % (10.5-14.5); WBC 10.4 thou/uL (4.0-11.0)
[2018-08-26 05:38] LABS: ABSOLUTE NEUTROPHILS 7.6 thou/uL (1.4-8.2); BASOPHILS 0.4 % (0.0-2.0); EOSINOPHILS 0.3 % (0.0-3.0); HEMATOCRIT 23.8 % (37.0-47.0); HEMOGLOBIN 7.9 gm/dL (12.0-15.0); LYMPHOCYTES 19.3 % (24.0-44.0); MCHC 33.4 g/dL (28.0-37.0); MCV 86.9 fL (80.0-100.0); MONOCYTES 6.6 % (1.0-8.0); PLATELET COUNT 688 thou/uL (150-400); POLYS 73.4 % (36.0-66.0); RBC 2.73 mil/uL (4.20-5.00)
[2018-08-26 05:45] LABS: CALCIUM 8.3 mg/dL (8.5-10.1); CREATININE 0.8 mg/dL (0.6-1.0); POTASSIUM 4.8 mmol/L (3.5-5.1)
[2018-08-26 08:00] VITALS: BP 152/79
[2018-08-26 19:33] VITALS: BP 109/52
[2018-08-27 08:00] VITALS: BP 173/84
[2018-08-27 19:54] VITALS: BP 158/84
[2018-08-28 07:46] VITALS: BP 181/98
[2018-08-28] MEDS ORDERED: CEFTRIAXON1 GM/50 M1 IVPB (09:40)
[2018-08-28] MEDS ORDERED: VANCO 1 GR1 GM/250 M IVPB (09:40)
== END 2018-08-28 15:58 | DRG 493 ==
LOC: PRE 11:49 → 4W 13:18 → TBA 13:18 → 4W 17:32
PROVIDERS: Internal Medicine Infectious Disease; Orthopaedic Surgery Foot and Ankle Surgery
PROC: 0QSH04Z Reposition Left Tibia with Internal Fixation Device, Open Approach (ICD-10-PCS; principal; 2018-08-24)
PROC: 0QSK04Z Reposition Left Fibula with Internal Fixation Device, Open Approach (ICD-10-PCS; principal; 2018-08-24)
PROC: 05HY33Z Insertion of Infusion Device into Upper Vein, Percutaneous Approach (ICD-10-PCS; 2018-08-27)
DX: S82.842B Displaced bimalleolar fracture of left lower leg, initial encounter for open fracture type I or II (principal); S82.201A Unspecified fracture of shaft of right tibia, initial encounter for closed fracture; E87.1 Hypo-osmolality and hyponatremia; W18.30XA Fall on same level, unspecified, initial encounter; M06.9 Rheumatoid arthritis, unspecified; H54.8 Legal blindness, as defined in USA; E11.43 Type 2 diabetes mellitus with diabetic autonomic (poly)neuropathy; K31.84 Gastroparesis; F32.9 Major depressive disorder, single episode, unspecified; F41.9 Anxiety disorder, unspecified; Y92.89 Other specified places as the place of occurrence of the external cause; Y93.89 Activity, other specified; Y99.8 Other external cause status; Z98.42 Cataract extraction status, left eye; Z98.41 Cataract extraction status, right eye; Z90.49 Acquired absence of other specified parts of digestive tract; Z90.81 Acquired absence of spleen; Z93.1 Gastrostomy status; Z87.81 Personal history of (healed) traumatic fracture; Z79.4 Long term (current) use of insulin; Z79.899 Other long term (current) drug therapy; Z80.0 Family history of malignant neoplasm of digestive organs; Z28.21 Immunization not carried out because of patient refusal
CPT/HCPCS: 10047; 27000; 50010; 50101; 50386; 51122; 51412; 53078; 56524; 56525; 56527; 57091; 57103; 57180; 62110; 62900; 65060; 70005

== ENCOUNTER → 2018-09-24 | Outpatient (CLI) | payer OTHER ==
[~2018-09-24] VITALS: Ht 175.3 cm; Wt 65.3 kg
[~2018-09-24] MED LIST changes: +CEFTRIAXON1 GM/50 M1 IVPB; +ONDANSETRON HCL4 M2 PO; +VANCO 1 GR1 GM/250 M IVPB
--- NOTE | ~2018-09-24 | PATH ---
[facility] [address] [place] [address] PATHOLOGY RPT PROCEDURE Name: IDRISCHINYERE Room #: REG CRISTI Barriga.#: [id number] Admission: 09/24/18 Date of : 55 Discharge: Report #: [id number] Path Case #: [id number] [facility] Accession Number: [id number] . 01 Material submitted: . BX OF ESOPHAGUS R/O BARRETTS . 01 Clinical history: . . 02 Diagnosis: Gastroesophageal mucosa, esophagus, rule out Lancaster's, endoscopic biopsy: - Focal specialized columnar epithelium (gastric cardia-type mucosa) with intestinal metaplasia, compatible with Lancaster's metaplasia. - Negative for dysplasia. - Focal squamous mucosa with mild esophagitis. . (IUV:mml; 09/25/18) QLM/09/25/2018 . 02 Comment: The above diagnosis of Lancaster's esophagus is made due to presence of intestinal metaplasia and with the assumption that the biopsies were obtained from the columnar mucosa in the distal esophagus located at least 1 cm proximal to the top of the gastric folds as per the 2016 ACG guidelines. . (IUV:mml; 09/25/18) . 02 Electronically signed: . Mae Molina MD, Pathologist NPI- [id number] . 01 Gross description: . Received in formalin labeled "Chinyere Foley, BX of esophagus, rule out Lancaster's," are 3 segments of anders soft tissue measuring 0.9 x 0.8 x 0.2 cm in aggregate dimensions and ranging from 0.4 to 0.5 cm in maximum dimension. The specimen is submitted entirely in cassette A1. (TSD; 09/24/2018) TOB/TOB . 02 Pathologist provided ICD-10: K22.70, K20.9 . 02 CPT . 067883 Specimen Comment: A courtesy copy of this report has been sent to Specimen Comment: [phone], [place] [address] PATHOLOGY RPT PROCEDURE Name: CHINYERE FOLEY Room #: REG CL Paz#: [id number] Admission: 09/24/18 Date of : 55 Discharge: Report #: [id number] Path Case #: [id number] Specimen Comment: Report sent to / DR BRANNON Performed at: [address], [place], [place] [id number] MD Justin Hamilton MD Phone: [phone] Performed at: [address] [id number] MD Mae Molina MD Phone: [phone]
== END | disposition home or self-care (01) ==
LOC: GI 10:20
DX: K22.70 Barrett's esophagus without dysplasia (principal); K20.9 Esophagitis, unspecified; K22.8 Other specified diseases of esophagus; E11.40 Type 2 diabetes mellitus with diabetic neuropathy, unspecified; F32.9 Major depressive disorder, single episode, unspecified; F41.9 Anxiety disorder, unspecified; Z98.41 Cataract extraction status, right eye; Z98.42 Cataract extraction status, left eye; Z93.1 Gastrostomy status; Z98.84 Bariatric surgery status; Z90.49 Acquired absence of other specified parts of digestive tract; Z98.890 Other specified postprocedural states; Z79.899 Other long term (current) drug therapy; Z79.4 Long term (current) use of insulin; Z90.81 Acquired absence of spleen
CPT/HCPCS: 62110; 62900

== ENCOUNTER 2018-10-15 16:28 | Inpatient (IN) | payer OTHER ==
[~2018-10-15] VITALS: Ht 175.3 cm; Wt 63.5 kg
--- NOTE | ~2018-10-15 | EKG ---
[address] [employer] [place] [address] ELECTROCARDIOGRAM REPORT Name: SYDNEY STEINBERG Room #: 428-P ADM IN M.R.#: [id number] Admission: 10/15/18 Attend Phys: Lorenzo Payton MD Discharge: Date of : 55 Report #: [id number] THIS REPORT FOR: //name// [facility] ED Test Date: 2018-10-15 Test Time: 18:02:16 Pat Name: SYDNEY STEINBERG Department: Room: [facility] Gender: F Asset Management Analyst: JANNET : 1955 Requested By: Heather Salmon Order Number: [id number] MD: Yung Rizvi Measurements Intervals [place] Rate: 93 P: 57 FL: 154 QRS: 51 QRSD: 93 T: 64 QT: 334 QTc: 416 Interpretive Statements Sinus rhythm No significant abnormality Compared to ECG 05/28/2018 13:46:35 Ectopic atrial rhythm no longer present Electronically Signed On 10-16-2018 16:04:58 DESKTOP ANALYST by Yung Rizvi [email or web address] <ELECTRONICALLY SIGNED> By: Yung Rizvi MD, [facility] 10/16/18 1604 01 01 Yung Rizvi MD, [facility] /EPI
--- NOTE | ~2018-10-15 | O ---
[facility] [place] [address] OPERATIVE REPORT Name: SYDNEY STEINBERG Room #: 428-P ADM IN M.R.#: [id number] Admission: 10/15/18 Attend Phys: Lorenzo Payton MD Discharge: Date of : 55 Report #: [id number] THIS REPORT FOR: //name// CC: Luis F [facility] DATE OF SERVICE: 10/16/2018 PREOPERATIVE DIAGNOSIS: Right hip intertrochanteric hip fracture. POSTOPERATIVE DIAGNOSIS: Right hip intertrochanteric hip fracture. PROCEDURE: Right hip intramedullary nail. SURGEON: Bandar Layne M.D. ANESTHESIA: General. ESTIMATED BLOOD LOSS: Minimal. DRAINS: None. TOURNIQUET TIME: None. COMPLICATIONS: There were no complications. DESCRIPTION OF PROCEDURE: The patient brought to the operating room where she was placed under general anesthesia. Once under adequate general anesthesia, she was placed on the operative table. Once on the operative table, her right lower extremity was prepped and draped in sterile manner after being placed into traction. The patient had a nondisplaced right intertrochanteric hip fracture. This was stable upon examination on x-ray. The right hip was then prepped and draped in sterile manner. A 2-cm incision proximal to the tip of the greater trochanter was then placed and a curved cannulated awl was used to enter the proximal femur. A guidewire was then placed down the shaft of the femur and subsequent fixation across the fracture was achieved with an 11-mm trochanteric femoral nail. Once in place, the outrigger jig was utilized to place through a separate 2-cm incision, placed a guidewire to the center-center position of the femoral head and this was then subsequently reamed and drilled for. A 105-mm compression screw was then placed across the fracture. Excellent fixation was achieved in this manner. Distally through the same incision, a transverse locking screw was placed through the intramedullary nail. Excellent fixation and alignment was achieved in this manner as verified under fluoroscopy. The wounds were irrigated copiously and closed with 2-0 Vicryl in subcutaneous tissues and korin used for the skin. The wounds were dressed with Xeroform, [address] [address] OPERATIVE REPORT Name: SYDNEY STEINBERG Room #: 428-P [facility] IN .R.#: [id number] Admission: 10/15/18 Attend Phys: Lorenzo Payton MD Discharge: Date of : 55 Report #: [id number] x 4s, and sterile soft compressive dressing was placed. There were no complications from the procedure. The patient tolerated the procedure well and went to recovery room without incident. By: 1511 1525 Bandar Layne MD /nt
[2018-10-15 16:28] VITALS: BP 121/88
[2018-10-15] MEDS ORDERED: LISINOPRIL10 MG PO (16:33)
[2018-10-15 17:44] LABS: HEMOGLOBIN 9.8 gm/dL (12.0-15.0); MCH 29.1 pg (26.0-34.0); MCHC 32.7 g/dL (28.0-37.0); RBC 3.37 mil/uL (4.20-5.00); RDW 19.9 % (10.5-14.5)
[2018-10-15 17:52] LABS: CALCIUM 9.1 mg/dL (8.5-10.1); CREATININE 1.3 mg/dL (0.6-1.0); POTASSIUM 4.7 mmol/L (3.5-5.1)
[2018-10-15 18:00] LABS: APTT 28.6 Seconds (24.5-32.8); PROTIME 10.6 Seconds (9.3-11.4)
[2018-10-15 18:34] VITALS: BP 174/85
[2018-10-15 19:23] VITALS: BP 174/85
[2018-10-15 19:50] VITALS: BP 159/82
[2018-10-15 22:09] LABS: URINE BILIRUBIN NEGATIVE (Negative); URINE BLOOD 1+ (Negative); URINE CLARITY CLEAR; URINE COLOR YELLOW; URINE GLUCOSE-RANDOM* NEGATIVE (Negative); URINE KETONES NEGATIVE (Negative); URINE LEUKOCYTES-REFLEX 3+ (Negative); URINE NITRITE-REFLEX NEGATIVE (Negative); URINE PROTEIN (DIPSTICK) NEGATIVE (Negative); URINE UROBILINOGEN 0.2 E.U./dl (0.2-1.0)
[2018-10-15 22:27] LABS: BACTERIA-REFLEX 1-9 Few /HPF (None Seen); CASTS None Seen /LPF (None Seen); CRYSTALS None Seen /LPF (None Seen); SQUAMOUS 0-3 Few /LPF (0-3); URINE RBC 0-2 Rare /HPF (0-2); URINE WBC-REFLEX >25 Many /HPF (0-5); WBC CLUMPS Few (None Seen)
[2018-10-16 05:29] VITALS: BP 136/67
[2018-10-16 08:18] VITALS: BP 159/91
[2018-10-16 16:25] VITALS: BP 188/77
[2018-10-16 16:55] VITALS: BP 181/107
[2018-10-16 18:22] VITALS: BP 172/86
[2018-10-16 21:05] VITALS: BP 135/68
[2018-10-17 06:02] LABS: HEMATOCRIT 27.4 % (37.0-47.0); HEMOGLOBIN 8.9 gm/dL (12.0-15.0); MCH 28.9 pg (26.0-34.0); MCHC 32.5 g/dL (28.0-37.0); RBC 3.07 mil/uL (4.20-5.00); RDW 19.4 % (10.5-14.5); WBC 8.8 thou/uL (4.0-11.0)
[2018-10-17 06:35] LABS: CALCIUM 8.4 mg/dL (8.5-10.1); CREATININE 1.2 mg/dL (0.6-1.0); MAGNESIUM 1.5 mg/dL (1.8-2.4); POTASSIUM 4.7 mmol/L (3.5-5.1)
[2018-10-17 08:00] VITALS: BP 123/89
[2018-10-17 19:42] VITALS: BP 102/58
[2018-10-18 04:51] VITALS: BP 171/87
[2018-10-18 09:09] VITALS: BP 143/75
[2018-10-18 16:08] VITALS: BP 95/47
[2018-10-18 20:10] VITALS: BP 134/73
[2018-10-19 04:35] VITALS: BP 154/77
[2018-10-19 08:00] VITALS: BP 183/91
[2018-10-19 09:17] VITALS: BP 183/91
[2018-10-19] MEDS ORDERED: KEFLEX500 M1 PO (11:55)
== END 2018-10-19 17:15 | DRG 853 ==
LOC: ER 16:28 → 4E 18:06 → EROBS 18:06 → 4E 19:24
PROVIDERS: Emergency Medicine; Internal Medicine; Orthopaedic Surgery Foot and Ankle Surgery
PROC: 0QH606Z Insertion of Intramedullary Internal Fixation Device into Right Upper Femur, Open Approach (ICD-10-PCS; principal; 2018-10-16)
DX: A41.9 Sepsis, unspecified organism (principal); S72.141A Displaced intertrochanteric fracture of right femur, initial encounter for closed fracture; E43 Unspecified severe protein-calorie malnutrition; N39.0 Urinary tract infection, site not specified; N17.9 Acute kidney failure, unspecified; E11.42 Type 2 diabetes mellitus with diabetic polyneuropathy; F32.9 Major depressive disorder, single episode, unspecified; K21.9 Gastro-esophageal reflux disease without esophagitis; H54.8 Legal blindness, as defined in USA; E83.42 Hypomagnesemia; E11.43 Type 2 diabetes mellitus with diabetic autonomic (poly)neuropathy; K31.84 Gastroparesis; M62.84 Sarcopenia; Z47.89 Encounter for other orthopedic aftercare; Z90.81 Acquired absence of spleen; Z68.20 Body mass index [BMI] 20.0-20.9, adult; Z93.1 Gastrostomy status; Z90.49 Acquired absence of other specified parts of digestive tract; Z79.4 Long term (current) use of insulin; Z98.42 Cataract extraction status, left eye; Z98.41 Cataract extraction status, right eye
CPT/HCPCS: 10084; 50010; 50101; 50133; 50386; 50635; 51412; 51538; 51817; 52304; 55430; 56524; 56525; 57092; 62110; 62900; 70005

== ENCOUNTER → 2019-02-18 | Outpatient (CLI) | payer OTHER ==
[~2019-02-18] VITALS: Ht 175.3 cm; Wt 64.0 kg
[~2019-02-18] MED LIST changes: +KEFLEX500 M1 PO; +LISINOPRIL10 MG PO; +NORVASC5 MG PO
== END | disposition home or self-care (01) ==
LOC: GI 08:57
DX: K22.2 Esophageal obstruction (principal); K21.0 Gastro-esophageal reflux disease with esophagitis; F32.9 Major depressive disorder, single episode, unspecified; D64.9 Anemia, unspecified; I10 Essential (primary) hypertension; F41.9 Anxiety disorder, unspecified; G62.9 Polyneuropathy, unspecified; M06.9 Rheumatoid arthritis, unspecified; Z98.890 Other specified postprocedural states; Z98.41 Cataract extraction status, right eye; Z79.899 Other long term (current) drug therapy; Z98.84 Bariatric surgery status; Z98.42 Cataract extraction status, left eye; Z87.19 Personal history of other diseases of the digestive system; Z87.440 Personal history of urinary (tract) infections
CPT/HCPCS: 62110; 62900

== ENCOUNTER 2019-04-07 15:17 | Emergency (ER) | payer OTHER ==
[~2019-04-07] VITALS: Ht 175.3 cm; Wt 74.8 kg
[2019-04-07 15:49] LABS: ABSOLUTE NEUTROPHILS 5.8 thou/uL (1.4-8.2); BASOPHILS 1.4 % (0.0-2.0); EOSINOPHILS 1.1 % (0.0-3.0); HEMATOCRIT 35.9 % (37.0-47.0); HEMOGLOBIN 11.4 gm/dL (12.0-15.0); MCH 26.6 pg (26.0-34.0); MCHC 31.9 g/dL (28.0-37.0); MCV 83.6 fL (80.0-100.0); MONOCYTES 5.6 % (1.0-8.0); PLATELET COUNT 437 thou/uL (150-400); POLYS 75.9 % (36.0-66.0); RDW 21.8 % (10.5-14.5); WBC 7.6 thou/uL (4.0-11.0)
[2019-04-07 15:54] LABS: ALBUMIN 2.2 g/dL (3.4-5.0); CALCIUM 8.9 mg/dL (8.5-10.1); CREATININE 1.1 mg/dL (0.6-1.0); MAGNESIUM 1.6 mg/dL (1.8-2.4); POTASSIUM 3.2 mmol/L (3.5-5.1); TOTAL BILIRUBIN 0.4 mg/dL (<0.1-1.0)
[2019-04-07 16:10] LABS: URINE BILIRUBIN NEGATIVE (Negative); URINE BLOOD 3+ (Negative); URINE GLUCOSE-RANDOM* 3+ (Negative); URINE KETONES NEGATIVE (Negative); URINE LEUKOCYTES-REFLEX TRACE (Negative); URINE NITRITE-REFLEX NEGATIVE (Negative); URINE PROTEIN (DIPSTICK) 2+ (Negative); URINE SPECIFIC GRAVITY <= 1.005 (1.005-1.035); URINE UROBILINOGEN 0.2 E.U./dl (0.2-1.0)
[2019-04-07 16:12] LABS: URINE CLARITY HAZY; URINE COLOR BROWN
[2019-04-07 16:20] LABS: CASTS None Seen /LPF (None Seen); SQUAMOUS 0-3 Few /LPF (0-3)
[2019-04-07 16:21] LABS: BACTERIA-REFLEX >30 Many /HPF (None Seen); CRYSTALS None Seen /LPF (None Seen); URINE RBC >20 Many /HPF (0-2); WBC CLUMPS Moderate (None Seen)
[2019-04-07 17:24] LABS: ANISOCYTOSIS 1+; POIKILOCYTOSIS SLIGHT
[2019-04-07] MEDS ORDERED: KEFLEX500 M1 PO (17:46)
[2019-04-07 18:03] VITALS: BP 129/82
== END 2019-04-07 18:10 | disposition home or self-care (01) ==
LOC: ER 15:17
PROVIDERS: Emergency Medicine
DX: N39.0 Urinary tract infection, site not specified (principal); E11.65 Type 2 diabetes mellitus with hyperglycemia; E11.43 Type 2 diabetes mellitus with diabetic autonomic (poly)neuropathy; K31.84 Gastroparesis; I95.1 Orthostatic hypotension; E11.42 Type 2 diabetes mellitus with diabetic polyneuropathy; F32.9 Major depressive disorder, single episode, unspecified; K21.9 Gastro-esophageal reflux disease without esophagitis; Z79.4 Long term (current) use of insulin; Z86.14 Personal history of Methicillin resistant Staphylococcus aureus infection; Z90.49 Acquired absence of other specified parts of digestive tract

== ENCOUNTER 2019-04-10 11:50 | Inpatient (IN) | payer OTHER ==
[~2019-04-10] VITALS: Ht 175.3 cm; Wt 64.7 kg
[2019-04-10 11:51] VITALS: BP 106/63
[2019-04-10 13:02] LABS: ABSOLUTE NEUTROPHILS 4.5 thou/uL (1.4-8.2); BASOPHILS 1.2 % (0.0-2.0); EOSINOPHILS 0.9 % (0.0-3.0); HEMOGLOBIN 10.8 gm/dL (12.0-15.0); LYMPHOCYTES 20.4 % (24.0-44.0); MCH 26.7 pg (26.0-34.0); MCHC 31.8 g/dL (28.0-37.0); MCV 83.8 fL (80.0-100.0); MONOCYTES 6.2 % (1.0-8.0); PLATELET COUNT 374 thou/uL (150-400); POLYS 71.3 % (36.0-66.0); RBC 4.05 mil/uL (4.20-5.00); RDW 21.9 % (10.5-14.5); WBC 6.4 thou/uL (4.0-11.0)
[2019-04-10 13:05] LABS: ANION GAP 10 mmol/L (7-16); BUN 17 mg/dL (7-18); CHLORIDE 101 mmol/L (98-107); CO2 28 mmol/L (21-32); CREATININE 0.8 mg/dL (0.6-1.0); GLUCOSE 149 mg/dL (74-106); POTASSIUM 3.8 mmol/L (3.5-5.1)
[2019-04-10 13:06] LABS: SODIUM 139 mmol/L (136-145)
[2019-04-10 13:09] LABS: ALBUMIN 1.9 g/dL (3.4-5.0); DIRECT BILIRUBIN < 0.1 mg/dL (<0.1-0.3); LIPASE 58 U/L (73-393); SGOT 24 U/L (15-37); SGPT 11 U/L (30-65); TOTAL BILIRUBIN 0.3 mg/dL (<0.1-1.0); TOTAL PROTEIN 6.2 g/dL (6.4-8.2)
[2019-04-10 13:46] LABS: ANISOCYTOSIS 1+; TARGET CELLS OCCASIONAL
[2019-04-10 14:41] LABS: URINE BILIRUBIN NEGATIVE (Negative); URINE BLOOD 2+ (Negative); URINE CLARITY CLEAR; URINE COLOR YELLOW; URINE GLUCOSE-RANDOM* 3+ (Negative); URINE KETONES NEGATIVE (Negative); URINE LEUKOCYTES-REFLEX TRACE (Negative); URINE NITRITE-REFLEX NEGATIVE (Negative); URINE PROTEIN (DIPSTICK) TRACE (Negative)
[2019-04-10 14:54] LABS: AMP/METHAMP Negative (Negative); BARBITURATES Negative (Negative); BENZODIAZEPINES Negative (Negative); CASTS None Seen /LPF (None Seen); COCAINE Negative (Negative); CRYSTALS None Seen /LPF (None Seen); METHADONE Negative (Negative); OPIATES POSITIVE (Negative); PCP Negative (Negative); SQUAMOUS 0-3 Few /LPF (0-3); URINE WBC-REFLEX 6-15 Few /HPF (0-5)
[2019-04-10 14:55] LABS: BACTERIA-REFLEX 1-9 Few /HPF (None Seen)
[2019-04-10 17:25] VITALS: BP 140/88
[2019-04-10 18:01] VITALS: BP 140/88
--- NOTE | 2019-04-10 18:55 | NUR ---
ATTEMPTED TO CALL REPORT; REQUESTED THEY CALL US BACK THEY ARE GIVING REPORT
--- NOTE | 2019-04-10 19:52 | NUR ---
REPORT GIVEN TO RECEIVING NURSE IN CCU
[2019-04-10 20:10] VITALS: BP 148/62
[2019-04-11 00:59] VITALS: BP 141/75
[2019-04-11 04:39] LABS: CALCIUM 8.2 mg/dL (8.5-10.1); CREATININE 0.8 mg/dL (0.6-1.0); POTASSIUM 3.6 mmol/L (3.5-5.1)
[2019-04-11 04:45] VITALS: BP 132/77
[2019-04-11 04:45] LABS: HEMATOCRIT 33.8 % (37.0-47.0); HEMOGLOBIN 10.8 gm/dL (12.0-15.0); MCHC 32.1 g/dL (28.0-37.0); MCV 84.1 fL (80.0-100.0); RBC 4.02 mil/uL (4.20-5.00); RDW 22.2 % (10.5-14.5); WBC 7.1 thou/uL (4.0-11.0)
--- NOTE | 2019-04-11 07:31 | EKG ---
[address] [address] ELECTROCARDIOGRAM REPORT Name: FAUSTINAZASYDNEY Room #: 207-P ADM IN M.R.#: [id number] ������������������ Admission: 04/10/19 ������������������ Attend Phys: Michael Terry MD Discharge: ������������������ Date of : 55 Report #: [id number] ����������������������������������������������������������������� [id number] THIS REPORT FOR: //name// [facility] ED Test Date: 2019-04-10 Test Time: 12:51:41 Pat Name: SYDNEY STEINBERG Department: Room: 207 P Gender: F Radiology Orderly: : 1955 Requested By: Heather Salmon Order Number: [id number] MD: Bret Silva Measurements Intervals [place] Rate: 61 P: 16 NV: 169 QRS: 61 QRSD: 69 T: 147 QT: 495 QTc: 499 Interpretive Statements Sinus rhythm Supraventricular bigeminy Nonspecific T abnrm, anterolateral leads Borderline prolonged QT interval Compared to ECG 10/15/2018 18:02:16 Atrial premature complex(es) now present Electronically Signed On 04-11-2019 7:30:55 CDT by Bret Silva [email or web address] ��������������������������������������������� <ELECTRONICALLY SIGNED> ���������������������������������������� By: Bret Silva MD ��������������������������������������������� 04/11/19 0730 1251 1251 Bret Silva MD /EPI
[2019-04-11 07:40] VITALS: BP 114/77
--- NOTE | 2019-04-11 07:40 | NUR ---
ASSUMED PT CARE AT 1900. VSS PT A&0X4. PT CAME FROM ER. ADMISSION ASSESSMENTS DONE, WOUND CARE CONSULTED FOR SORES ON TOES AND LEFT LEG. IV INFILTRATED THIS AM. CURRENT IV FLUIDS STOPPED UNTIL NEW ONE CAN BE PLACED. PT IS STABLE FOR NOW, BS HAS BEEN STABLE. WILL CONTINUE TO MONITOR
--- NOTE | 2019-04-11 10:12 | NUR ---
WOUND CONSULT; ADMISSION WOUND CONSULT COMPLETED. ABRASIONS TO THE TOES OF THE RIGHT FOOT WELL THE LEFT LATERAL MALLEOLUS WITH SCANT AMOUNT OF DRAINAGE. THE PERIWOUND IS PINK. NO INCREASED TEMPATURE TO THE AREA. RECOMMENDATION; [employer] CHANGE M/W/F PRN SECURE WITH TERRY DISCUSSED WITH RN A SUGGESTION TO DISCUSS WITH PCP TODAY TO CONSIDER AN ANTBOTIC CREAM TO THESE AREAS.
--- NOTE | 2019-04-11 11:58 | NUR ---
ASSUMED CARE AT SHIFT CHANGE, PATIENT ALER AND AWAKE BUT CONFUSED TO TIME AND YEAR. 7 BEATS VTACH AND KARU NOTIFIED, SR ON THE MONITOR, VSS AND AFEBRILE. AND WILL CONTINUE WITH POC.
[2019-04-11 12:00] VITALS: BP 92/61
--- NOTE | 2019-04-11 16:10 | NUR ---
Case opened to follow for dc planning. Pt is aert and ox3 this afternoon. She is known to cm from previous admissions. She went to SNF at [facility] in October 2018 and stayed there until January 2018 due to NWB RLE. Once she was wt bearing and able to transfer indep from her w/c she returned home with her spouse. She reports that they have a stair glide in place as well as a w/c,rw, and shower bench. Her spouse works fulltime but comes home over his lunch hour to check on her. He gives her her po meds but she gives herself her insulin. She is legally blind. She has a life alert necklace. She denies any falls recently and no HH in the past few months. She has had chcs in the past and would use them again if needed. She is receptive to SNF at [facility] again if recommended by therapy. Therapy evals pending. Will follow.
[2019-04-11 16:24] VITALS: BP 134/83
[2019-04-11 20:04] LABS: CALCIUM 8.2 mg/dL (8.5-10.1); MAGNESIUM 1.5 mg/dL (1.8-2.4); POTASSIUM 3.2 mmol/L (3.5-5.1)
[2019-04-11 20:19] VITALS: BP 165/95
[2019-04-12 00:38] VITALS: BP 133/81
--- NOTE | 2019-04-12 04:22 | NUR ---
ASSUMED PT CARE AT 1900. VSS. PT A&0X4, FSBS WAS LOW IN THE 60s AT START OF SHIFT, APPLE+ORANGE JUICE IN ADDITON TO SOME PHOEBE CRACKERS WERE GIVEN TO THE PATIENT AND HER BOOD SUGAR CAME BACK UP TO 100s. LEFT HAND IV SITE INFILTRATION APPEARS BETTER. PT HAS BEEN STABLE ALL NIGHT, FSBS TO BE RECHECKED THIS AM. NO COMPLAINTS OF PAIN OR DISTRESS. WILL CONTINUE TO MONITOR PER POC.
[2019-04-12 05:40] VITALS: BP 151/79
[2019-04-12 08:16] LABS: CREATININE 0.8 mg/dL (0.6-1.0); MAGNESIUM 1.5 mg/dL (1.8-2.4); POTASSIUM 4.1 mmol/L (3.5-5.1)
[2019-04-12 08:17] VITALS: BP 160/90
--- NOTE | 2019-04-12 09:36 | EKG ---
[address] [place] [address] ELECTROCARDIOGRAM REPORT Name: SYDNEY STEINBERG Room #: 207- ADM IN M.R.#: [id number] ������������������ Admission: 04/10/19 ������������������ Attend Phys: Michael Terry MD Discharge: ������������������ Date of : 55 Report #: [id number] ����������������������������������������������������������������� [id number] THIS REPORT FOR: //name// [facility] [place] [place] Test Date: 2019-04-12 Test Time: 07:47:40 Pat Name: SYDNEY STEINBERG Department: Room: 207 P Gender: F Furnace Fitter: MAK : 1955 Requested By: Yung Rizvi Order Number: [id number] MD: Yung Rizvi Measurements Intervals [place] Rate: 82 P: 75 [place]: 152 QRS: 36 QRSD: 79 T: 48 QT: 468 QTc: 547 Interpretive Statements Sinus rhythm Low voltage, extremity leads Nonspecific ST segment abnormality Compared to ECG 04/10/2019 12:51:41 Atrial premature complex(es) no longer present Electronically Signed On 04-12-2019 9:35:58 CDT by Yung Rizvi [email or web address] ��������������������������������������������� <ELECTRONICALLY SIGNED> ���������������������������������������� By: Yung Rizvi MD, [facility] ��������������������������������������������� 04/12/19 0935 0747 0747 Yung Rizvi MD, [facility] /EPI
--- NOTE | 2019-04-12 12:14 | NUR ---
Pt going down for MRI and having EEG today d/t more seizure activity and change in mental status. Pt's family is aware per nursing. Dc timeframe and needs are uncertain. Will await workup and care team recommendations. Possible Hh or SNF referrals at dc.
[2019-04-12 12:22] LABS: TSH 1.423 uIU/mL (0.358-3.740)
[2019-04-12 17:17] VITALS: BP 105/67
--- NOTE | 2019-04-12 18:20 | NUR ---
NO CHANGE SINCE AM ASSESMENT. NOTED SEVERAL EPISODE OF SEIZURE LIKE ACTIVITY TODAY LASTING 15-20 SECONDS. NEURO CONSULTED. MRI AND EEG COMPLETED. PT RESTING IN BED. REPOSITIONED ORDERED. BLOOD SUGAR STABLE. KURTIS MARQUEZ DD. WILL CONT. TO MONITOR.
[2019-04-12 20:00] VITALS: BP 127/78
--- NOTE | 2019-04-13 02:41 | NUR ---
Assumed care at 1845. Pt resting in bed. Alert and oriented to self. Non-verbal. VSS. Blood sugar stable. Turning Q2. Applied barrier cream to buttocks. wants to be called for EEG results. Pt ate 30% dinner. [place] intact. No identified needs at the moment. Call light within reach. Will continue to monitor.
[2019-04-13 04:00] VITALS: BP 113/65
[2019-04-13 05:10] LABS: CALCIUM 7.8 mg/dL (8.5-10.1); CREATININE 0.7 mg/dL (0.6-1.0); POTASSIUM 4.5 mmol/L (3.5-5.1)
[2019-04-13 07:57] VITALS: BP 133/67
--- NOTE | 2019-04-13 09:47 | NUR ---
PT RESTING IN BED SPOUSE AND SON AT BEDSIDE. PT TOOK AM MEDICATIONS 1 AT A TIME. SOME CRUSHED IN APPLESAUCE. ATE OATMEAL AND DRANK OJ AND SUPPLEMENT FOR BREAKFAST. TELE MONITORED. PT HAS HULL TO D/D. TURNED EVERY 2. TOTAL CARE WITH ADLS.
[2019-04-13 15:55] VITALS: BP 121/64
--- NOTE | 2019-04-13 16:31 | HC ---
[facility] [place] [address] CONSULTATION Name: SYDNEY STEINEBRG Room #: 207-P ADM IN M.R.#: [id number] Admission: 04/10/19 ������������������ Attend Phys: Michael Terry MD Discharge: ������������������ Date of : 55 Report #: [id number] THIS REPORT FOR: //name// CC: Michael Terry Keyla Arguello [facility] unknown DATE OF SERVICE: 04/12/2019 NEUROLOGY CONSULTATION HISTORY OF PRESENT ILLNESS: The patient is a 63-year-old female who presents with altered mental status. The patient was admitted to the hospital on 04/10/2019. Her found her at home. Her blood sugar was in the mid 30s. Her states that she has been advised not to take insulin unless someone is present. Not only does she have diabetic retinopathy, she also has macular degeneration. Unfortunately, this is not the first time she has given herself too much insulin. The patient has also had difficulty with hyperglycemia. When the patient was admitted to the hospital several days previously, her glucose was over 500. Her states that she has had difficulty controlling her blood sugar ever since she has been diagnosed with diabetes. He tells me that not only has she had blood sugars in the 30s, she has also had blood sugars in the 20s. The patient has never returned to her normal self once she was brought to the hospital. Even when she was given glucose by the paramedics, she never returned to normal. Her has noticed for the past year, she has had some difficulty with her memory. PAST MEDICAL HISTORY: Diabetes, peripheral neuropathy, orthostatic hypotension, rheumatoid arthritis, diabetic retinopathy, macular degeneration, hypertension, depression. PAST SURGICAL HISTORY: Lap band surgery, splenectomy, PEG tube placement and removal, cholecystectomy, bilateral cataract surgery, stomach stapling. MEDICATIONS AT HOME: Pantoprazole 40 mg b.i.d., lisinopril 10 mg daily, amlodipine 5 mg daily, duloxetine 90 mg daily, hydrocodone p.r.n., erythromycin 250 mg t.i.d. ALLERGIES: None. PHYSICAL EXAMINATION: VITAL SIGNS: Temperature 36.9, pulse rate 87, respiratory rate 18, blood pressure 160/90. She has had a blood pressure as low as 92/61, bedside pulse oximetry 99% on room air. [address] [address] CONSULTATION Name: SYDNEY STEINBERG Room #: 207-P [facility] IN M.R.#: [id number] Admission: 04/10/19 ������������������ Attend Phys: Michael Terry MD Discharge: ������������������ Date of : 55 Report #: [id number] NEUROLOGIC: Cranial nerves 2-12 are grossly intact. Motor exam demonstrates symmetrical movement in the upper and lower extremities with the exception of the left upper extremity. She is not moving the left arm as much and she may have some increased tone, but it is difficult to completely assess her because she has a bandage around her left elbow where the IV is. Reflexes are absent. Plantar responses are mute. Coordination and gait cannot be tested. Mental status, the patient's eyes are open. She tries to speak, but she gets out very few with any intelligible words and she is most likely not able to follow commands either. LABORATORY DATA: Hematology: White blood cell count 7.1, hemoglobin 10.8, hematocrit 33.8, MCV 84.1, platelet count 397,000. Urinalysis, trace protein, 2+ blood, trace leukocyte esterase. Chemistry: Sodium 141, potassium 4.1, chloride 106, carbon dioxide 31, BUN 11, creatinine 0.8, GFR 72, glucose 319. Lactic acid 1.9, calcium 8, magnesium 1.5. Liver functions unremarkable with the exception of alkaline phosphatase, which is 157. Drug screen positive for opiates. MRSA positive. IMAGING: CT scan of the head is negative. IMPRESSION: I have ordered an Urgent MRI of the head to evaluate for stroke. An electroencephalogram will also be done irregardless of the findings on the MRI to rule out subclinical seizures. I have also ordered some vitamin levels given her prior history of gastric surgery. I thank you for your kind referral of the patient. We will continue to follow her with you. ��������������������������������������������� <ELECTRONICALLY SIGNED> ���������������������������������������� By: Cyndy Mendoza DO ��������������������������������������������� 04/13/19 1631 1108 0931 Cyndy Mendoza DO /nt
--- NOTE | 2019-04-13 16:32 | EEG ---
[facility] [place] [address] ELECTROENCEPHALOGRAM Name: SYDNEY STEINBERG Room #: 207-P ADM IN M.R.#: [id number] ������������������ Admission: 04/10/19 ������������������ Attend Phys: Michael Terry MD Discharge: ������������������ Date of : 55 Report #: [id number] ����������������������������������������������������������������� [id number] THIS REPORT FOR: //name// [facility]: [facility] HISTORY: The patient is a 63-year-old female with altered mental status. This altered mental status occurred after an episode of hypoglycemia. DESCRIPTION: The record consists of symmetric low to moderate amplitude, poorly defined posterior dominant rhythm, which could not be counted, but at times reached 10 cycles per second, but for the most part was 3-4 cycles per second. Muscle artifact was noted throughout the recording. Sharp waves were noted periodically at T4, although sometimes these sharp waves which occurred approximately every second appeared more diffuse and bilaterally symmetrical, but were maximal at T4. No change in state was noticed during the recording. IMPRESSION: This is an abnormal adult awake record concerning for subclinical seizure, maximal over the right mid temporal head region. ���������������������������������������� <ELECTRONICALLY SIGNED> ���������������������������������������� By: Cyndy Mendoza DO ��������������������������������������������� 04/13/19 1632 1804 2100 Cyndy Mendoza DO /nt
--- NOTE | 2019-04-13 19:52 | NUR ---
SPOKE WITH DR BEAN HE STATED TO START ACYCLOVIR IV AND HE WOULD SEE PATIENT 04/14/19.
--- NOTE | 2019-04-13 19:56 | NUR ---
HOLD ACKNOWLEDED FOR IV ACYCLOVIR FROM PHARMACY NOC NURSE TO START.
[2019-04-13 20:00] VITALS: BP 116/72
[2019-04-14 03:11] LABS: GLYCOHEMOGLOBIN (HGB A1C) 14.3 % (4.8-5.6)
[2019-04-14 04:00] VITALS: BP 128/66
--- NOTE | 2019-04-14 05:25 | NUR ---
RECEIVED PT'S CARE 1900; PT. ON BED; AT THE BEDSIDE AT SHIFT CHANGE; DURING ASSESSMENT PT. ALERT TO PERSON; WHEN ASK THE DAY & PLACE ST. "MONDAY"; WHEN ASKED IF HAVE ANY PAIN; ST. "NO"; HAD LARGE BM EARLY ON THE NIGHT; COMPLETE BED CHANGE; AT 2210 DR. BERKOWITZ INFORMED BS; 229; ORDERS RECEIVED; CHECK CHARTING; PT. ABLE TO SLEEP THROUGH THE NIGHT WITH EYES CLOSE; TURN FROM SIDE TO SIDE; WILL KEEP MONITORING; ASSESSMENT CHARGED; FOLLOWING POC; WILL PASS ON REPORT.
[2019-04-14 05:38] LABS: CALCIUM 7.8 mg/dL (8.5-10.1); CREATININE 0.6 mg/dL (0.6-1.0); POTASSIUM 4.5 mmol/L (3.5-5.1)
[2019-04-14 07:06] LABS: T4 (THYROXINE) 4.8 ug/dL (4.5-12.0)
--- NOTE | 2019-04-14 11:04 | EEG ---
[facility] [place] [address] ELECTROENCEPHALOGRAM Name: SYDNEY STEINBERG Room #: 207-P ADM IN M.R.#: [id number] ������������������ Admission: 04/10/19 ������������������ Attend Phys: Michael Terry MD Discharge: ������������������ Date of : 55 Report #: [id number] ����������������������������������������������������������������� [id number] THIS REPORT FOR: //name// CC: Michael Terry [facility] unknown HISTORY: The patient is a 63-year-old female with possible subclinical seizures. An EEG is requested for further evaluation. DESCRIPTION: Using the 10-20 electrode system, a portable EEG was performed at the bedside. In comparison to the EEG dated 04/12/2019, the temporal sharp waves are less prominent. The patient continues to have moderate amplitude 3-4 cycles per second activity over the right hemisphere. The sharp waves maximal at T4 are not occurring as frequently. Photic stimulation is not activating. IMPRESSION: The patient's electroencephalogram has improved from yesterday. She continues to have an abnormality in the right mid temporal lobe. There were no clear subclinical seizures. This is an abnormal adult awake record consistent with a focal abnormality in the right mid temporal lobe. There were no clearly defined subclinical seizures on today's recording. ���������������������������������������� <ELECTRONICALLY SIGNED> ���������������������������������������� By: Cyndy Mendoza, ��������������������������������������������� 04/14/19 1104 1612 2132 Cyndy Mendoza DO /nt
--- NOTE | 2019-04-14 12:34 | NUR ---
REPORT CALLED TO ERICK Sal TRNASFER TO ROOM 464
[2019-04-14 15:16] VITALS: BP 113/80
--- NOTE | 2019-04-14 15:19 | HC ---
[facility] [address] [place] [address] CONSULTATION Name: SYDNEY STEINBERG Room #: 463-P ADM IN M.R.#: [id number] Admission: 04/10/19 ������������������ Attend Phys: Michael Terry MD Discharge: ������������������ Date of : 55 Report #: [id number] THIS REPORT FOR: //name// [facility]: [facility] room 207 on [address] The patient of Dr. Massey. SUBJECTIVE: A 63-year-old white female admitted for hypoglycemia and decreased state of consciousness. The patient is unable to give any useful medical information, and the information is taken from the chart, prior records and discussions with the [id number] and also by phone, the . The patient has apparently had diabetes for many years. At some point in the past, she was on metformin, but it was discontinued, and she is now on sliding scale lispro. She is also supposed to be on bedtime Glargine, dosage unknown; however, the patient checks her own sugar with visual difficulty using a magnifying glass. She then administers her own insulin by counting the clicks in the pen. It is not clear when and how much insulin she administers. In addition, she appears to administer the bedtime Glargine only when she thinks it is needed, which to her means significant hyperglycemia. This allows a significant potential for stacking of insulin doses with subsequent severe alternating hyper and hypoglycemia, which is highly toxic and dangerous. In addition, the patient apparently has had a recent viral episode and was severely dehydrated leading to further problems with glucose control and significant hyperglycemia. There is no information regarding the patient's diet, although she does have some GI problems leading to poor oral intake. She has very limited physical activity. The home situation is that the patient is alone by herself managing her own diabetes without any sort of supervision, and her mental dexterity and clarity are in significant question, particularly when she becomes dehydrated and/or hyper/hypoglycemic. Hemoglobin A1c is apparently highly elevated in the past and is not clear whether the patient's insulin regimen was constructed by her physician or the patient herself or some combination of the above. There is no information regarding dietary intake, blood sugar control, insulin doses or any other parameters available at this time. OBJECTIVE: LABORATORY DATA: As above and per chart. PHYSICAL EXAMINATION: GENERAL: Frail 63-year-old white female who does not respond to anything, but her name. She offers no pertinent medical information. She appears chronically weak and disabled with muscle wasting. SKIN: Pale with decreased turgor. VITAL SIGNS: Show height, which is reported to be anywhere from 5 feet 4 [place] [address] CONSULTATION Name: SYDNEY STEINBERG Room #: 463-P [facility] IN M.R.#: [id number] Admission: 04/10/19 ������������������ Attend Phys: Michael Terry MD Discharge: ������������������ Date of : 55 Report #: [id number] to 5 feet 9 inches. Weight is reported to be anywhere from 125-165 pounds over the past several days. She is afebrile. The remainder of the routine exam is essentially as per chart records. ASSESSMENT: Diabetes mellitus, out of control. The patient is on an irrational and dangerous insulin regimen. This is further compromised by the fact that the patient does her own glucose monitoring, meals and insulin administration, all without supervision. In addition, it is not clear how she is deciding how much of which type of insulin to take when, leading to significant problems with alternating hyper and hypoglycemia, which is an extremely toxic combination. PLAN: 1. We will check C-peptide to see if the patient is making endogenous insulin, which would allow use of oral therapies to limit the insulin requirement. 2. I have discussed with over the phone the need for a minimum home health and preferably some sort of extended care facility or 24-hour in-house and home care to make sure the patient's meals, blood sugars, insulin doses, etc. are all done appropriately on a regular and consistent basis. 3. I will modify the patient's insulin regimen reinstituting most likely very low dose bedtime Glargine and then lispro preprandially as needed to prevent mealtime hyperglycemia. I am not going to aim for "tight" control as it would be dangerous in the current situation. Meanwhile, the patient's will need to be instructed in insulin administration, glucose monitoring and other aspects of assisting his 's chronic diabetes care. Social Service may also need to be consulted to assist in the family decisions, which they seem unable and/or hesitant to make. Thank you very much for this consultation. I will continue to follow the patient with you for regulation of diabetes. ��������������������������������������������� <ELECTRONICALLY SIGNED> ���������������������������������������� By: Kaden Naik MD ��������������������������������������������� 04/14/19 1519 1522 1038 Kaden Naik MD /nt
--- NOTE | 2019-04-14 19:55 | NUR ---
ASSUMED CARE OF PATIENT APPROXIMANTELY 1300. ALERT TO SELF. CONFUSED. WILL REPEAT WHAT IS SPOKEN TO HER. HULL PATENT. SMALL BM NOTED ON ARRIVAL. FOLLOWS DIRECTIONS, ABLE TO TURN SELF IN BED. LUMBAR PUNCTURE PROCEDURE PLANNED TOMORROW. DR BERKOWITZ CONTACTED PER NURSING ORDERS. LOW BS ONETIME THAT RESOLVED WITH APPLE SAUCE. ON ISOLATION FOR MRSA OF NARES. FALL PRECAUTION IN PLACE. PATIENT DOES NOT USE CALL LIGHT. STAFF TO ANTICIPATE NEEDS.
[2019-04-14 20:32] VITALS: BP 117/72
[2019-04-15 04:39] VITALS: BP 164/93
--- NOTE | 2019-04-15 04:50 | NUR ---
PATIENT ALERT AND ORIENTED X1-2. BS MONITORED PER DR. BERKOWITZ. PATIENT IS COOPERATIVE WITH CARE. REMAINS ON ISOLATION PER ORDER. PATIENT WILL HAVE A SPINAL TAP TODAY AND HAS BEEN NPO SINCE 235804/14/19. TIME OF PROCEDURE IS UNKNOWN AT TIME OF NOTE. KURTIS MARQUEZ D/D. REMAINS ON SEIZURE PRECAUTIONS WITH RAILS WRAPPED. WILL MONITOR.
[2019-04-15 06:04] LABS: PROTIME 10.4 Seconds (9.3-11.4)
[2019-04-15 06:07] LABS: CALCIUM 8.3 mg/dL (8.5-10.1); CREATININE 0.6 mg/dL (0.6-1.0); POTASSIUM 4.6 mmol/L (3.5-5.1)
[2019-04-15 08:00] VITALS: BP 134/85
--- NOTE | 2019-04-15 11:36 | NUR ---
WOUND CARE FOLLOW UP; ALL AREAS SHOW MUCH IMPROVEMENT THE FEET AND BUTTOCKS. PATIENT IS ALERT AND ORIENTED RESPONDS TO QUESTIONS AND CAN TURN HERSELF. PATIENT HAD A BOWEL MOVEMENT DURING ASSESSMENT. RECOMENDATION CONTINUE CURRENT TREATMENT. DISCUSSED WITH RN
[2019-04-15 12:49] LABS: CSF CLARITY CLEAR; CSF COLOR COLORLESS; VOLUME 11.5 ml
[2019-04-15 13:01] LABS: CSF RBC 1 /mm3; CSF WBC 6 /mm3 (0-10)
[2019-04-15 14:38] LABS: CSF GLUCOSE 54 mg/dL (40-70); CSF PROTEIN 84 mg/dL (15-45)
[2019-04-15 15:00] VITALS: BP 173/98
--- NOTE | 2019-04-15 16:08 | HC ---
[facility] [place] [address] CONSULTATION Name: SYDNEY STEINBERG Room #: 463-P ADM IN M.R.#: [id number] Admission: 04/10/19 ������������������ Attend Phys: Michael Terry MD Discharge: ������������������ Date of : 55 Report #: [id number] THIS REPORT FOR: //name// CC: Michael Terry MD [facility] FAM unknown Cyndy Mendoza DO DATE OF SERVICE: 04/14/2019 HISTORY OF PRESENT ILLNESS: The patient is a 63-year-old female who was admitted on 04/10/2019 for change in mental status. She had low blood sugar in the 30s at that time. The patient is being followed by Neurology, has been diagnosed with right temporal lobe seizures. She is actually scheduled for lumbar puncture tomorrow to rule out possible herpes encephalitis. REASON FOR GASTROENTEROLOGY CONSULTATION: The patient has a long history of nausea, vomiting, gastroesophageal reflux disease. Apparently, she had a gastric bypass or gastric plastic type surgery 40 years ago. She then had a lap band type of surgery. Unfortunately, she had a perforation after that surgery and had a prolonged hospitalization. She has had multiple upper scopes by my partners in the past for dysphagia. She has also had a PEG-J tube at one point, which the states was very helpful in preventing nausea and vomiting, but was very cumbersome to take care of and this PEG-J tube has since been removed. I am not able to get much history from the patient due to her mental status at this time, although she does deny abdominal pain. Apparently per the and family, she has nausea and vomiting most mornings at home. She has a known history of gastroparesis as well. She has been on erythromycin for quite some time. She has also been on PPI therapy, Carafate in the past. Apparently, has had dilations in the past that have been helpful for several weeks to several months in general. Her states dysphagia is to solids only and typically is upper esophagus location. The patient has had some reported diarrhea recently. There have been no signs of bleeding. Her weight has been fairly stable. It is unclear if the patient has ever been on Reglan in the past for promotility aspect. Last upper endoscopy done by Dr. Givens in the computer showed no further esophagitis at that time. The PEG-J tube was still in place and was clogged. PAST MEDICAL HISTORY: Gastroparesis, insulin-dependent diabetes, previous gastric surgery including gastroplasty as well as lap band, peripheral neuropathy, history of rheumatoid arthritis, diabetic retinopathy, macular degeneration, hypertension, depression, previous PEG J tube, status post removal; previous cholecystectomy, cataract surgery. ALLERGIES: No known drug allergies. [address] [address] CONSULTATION Name: SYDNEY STEINBERG Room #: 463-P [facility] IN M.R.#: [id number] Admission: 04/10/19 ������������������ Attend Phys: Michael Terry MD Discharge: ������������������ Date of : 55 Report #: [id number] REVIEW OF SYSTEMS: Limited due to the patient's mental status, but as per HPI. FAMILY HISTORY: Negative for colon cancer. SOCIAL HISTORY: No tobacco or alcohol use. CURRENT MEDICATIONS: Acyclovir, Keppra, amlodipine, lisinopril, magnesium chloride, duloxetine, Protonix 40 mg daily, melatonin, erythromycin 250 with meals, Lovenox, Tylenol p.r.n., Zofran p.r.n. PHYSICAL EXAMINATION: VITAL SIGNS: Temperature is 97.6, pulse 70, blood pressure 115/63, respiratory rate is 18. GENERAL: She will respond to some questions. She denies abdominal pain, for example. She appears very lethargic in general. She is in no acute distress. HEENT: Sclerae nonicteric. Oropharynx clear. NECK: Supple. CARDIOVASCULAR: Regular rate and rhythm. CHEST: Clear to auscultation bilaterally. ABDOMEN: Soft. Previous incisions are well healed, nontender, nondistended, normoactive bowel sounds. EXTREMITIES: No cyanosis, clubbing or edema. LABORATORY DATA: Sodium 143, potassium 4.5, chloride 109, bicarbonate 27, BUN 15, creatinine is 0.6. Recent AST is 24, lipase 58, total bilirubin 0.3, alkaline phosphatase 157, ALT is 11. WBC 7.1, hemoglobin 10.8, platelet count is 397. ASSESSMENT AND PLAN: Nausea, vomiting, long history of gastroparesis. The patient is currently on erythromycin with meals, this has been somewhat helpful in the past. I explained we could consider Reglan at some point; however, due to the potential side effects, especially with her mental status currently, I would not try this at this time. She has recurrent dysphagia. She has benefited from dilations in the past. We could proceed with repeat upper endoscopy with dilation in the near future once her mental status improves and she is also scheduled for a lumbar puncture tomorrow. We will continue to follow closely. Thank you for allowing me to participate in her care. ��������������������������������������������� <ELECTRONICALLY SIGNED> ���������������������������������������� By: Ga Keene MD ��������������������������������������������� 04/15/19 1608 1210 0302 Ga Keene MD /nt
--- NOTE | 2019-04-15 17:10 | NUR ---
CARE TEAM INDICATING THAT PT NEEDS POST ACUTE CARE STAY. CM TO FOLLOW UP WIHT PT TO SEE WHERE SHE WANTS REFERRALS SENT. CM TO FOLLOW INDICATED WITH DC PLANNING.
[2019-04-15 19:10] LABS: GAMMA TOCOPHEROL 1.1 mg/L (0.5-4.9)
[2019-04-15 20:15] VITALS: BP 130/77
--- NOTE | 2019-04-15 20:37 | NUR ---
Received awake on bed. On NPO- advised patient. For Lumbar puncture today- a/w time. Verbal consent given by pt's who is her DPOA- Staff Vijaya witnessed verbal consent to proceed with procedure. On blood sugar monitoring, pt's results relayed to Dr Naik. Pre-breakfast CBG 116 relayed, pre-lunch CBG 95, pre-dinner CBG 175- as per Dr. Naik, to give Insulin Lispro 1 unit, SQ- given as prescribed, order put in. Dr Naik asked what pt had when she came back from Lumbar puncture, pt refused to have burger from lunch time and had her ensure instead- as per Dr Naik to d/c Ensure and encourage patient to eat her meals instead. discontinued pt's ensure and informed night staff. With avitia in situ- draining well- output measured and recorded. Able to open bowels today. IR staff called up re: pt's LP, to modify order from 04/13 to 04/15- order modified. Lab also called up re: specimen collection, they confirmed specimen was with them and just asked to put specimen collected on the system. Am medications not given, pt was on NPO. Medications given after patient came back from lumbar puncture. Patient turned regularly. With wound at left leg, wound nurse saw patient today. Visited by relatives today. Vital signs stable. Pt with elevated BPs, patient was transferred and just opened her bowels that time.
[2019-04-16 05:06] VITALS: BP 129/74
--- NOTE | 2019-04-16 05:31 | NUR ---
PATIENT AOX4 MAKES NEEDS KNOWN. PATIENT CALM AND COOPERATIIVE WITH MEDS AND CARE. PATIENT BLOOD SUGAR WAS 220 NEW ORDER TO GIVE 1 UNIT OF HUMALOG AND 5 UNTS OF LANTUS. AND RECHECK BLOOD SUGAR AT [address] BERKOWITZ AT 0730 WITH RESULTS. INSULIN ADMINISTED. PATIENT DENIED PAIN OR DISCOMFORT. PATIENT IN BED ASLEEP AT THIS TIME BREATHING REGULAR AND UNLABOURED.
[2019-04-16 06:00] LABS: CALCIUM 8.3 mg/dL (8.5-10.1); CREATININE 0.8 mg/dL (0.6-1.0); MAGNESIUM 1.8 mg/dL (1.8-2.4); POTASSIUM 4.4 mmol/L (3.5-5.1)
[2019-04-16 10:00] VITALS: BP 141/88
--- NOTE | 2019-04-16 14:57 | NUR ---
[facility] ASSESSING FOR POSSIBLE ADMISSION. CM TO FOLLOW INDICATED WITH DC PLANNING.
[2019-04-16 15:29] VITALS: BP 145/78
--- NOTE | 2019-04-16 15:52 | NUR ---
CM MET WITH PT AND SPOUSE AT BEDSIDE THIS AFTERNNON. CM INDICATED THAT [facility] WAS REVIEWING FOR POSSIBLE ADMISSION. IF [facility] CAN'T ACCEPT THEY ARE AGREEABLE WITH REFERRAL BEING SENT TO [facility]. [facility] INDICATED THEY FEEL PT WOULD BE MORE APPROPRIATE FOR SNF. REFERRAL TO BE SENT TO [facility]. CM TO FOLLOW INDICATED WITH DC PLANNING.
--- NOTE | 2019-04-16 16:05 | HC ---
[facility] [place] [address] CONSULTATION Name: SYDNEY STEINBERG Room #: 463-P ADM IN M.R.#: [id number] Admission: 04/10/19 ������������������ Attend Phys: Michael Terry MD Discharge: ������������������ Date of : 55 Report #: [id number] THIS REPORT FOR: //name// CC: [facility] DATE OF SERVICE: 04/14/2019 REASON FOR CONSULTATION: I was asked to evaluate concerning possible encephalitis. HISTORY OF PRESENT ILLNESS: The patient was a 63-year-old known from her previous hospitalization in 08/30/2018 where she had an open fracture, left ankle contamination. Treated with antibiotics. This subsequently has improved. She was at home when found her unresponsive, diaphoretic on her bed. Apparently, she has taken too much insulin. Blood sugar was in the 30s. She was resuscitated and brought into the Emergency Room. Prior to this, her thinking has been stable. Overall, had had no new issues developed and felt well. She is debilitated from her diabetes and prolonged hospital stay. On presentation to the hospital, was felt that she was having subclinical seizures. EEG confirm such. MRI scan showed no abnormalities. Placed on anti-seizure therapy and has improved. There was concern about possible herpes simplex encephalitis. She has had no fever, chills or sweats. There have been no complaints of neck pain. She has had no oral or vaginal lesions. Plan is for LP tomorrow. Mental status has improved over the last 24 hours. She has been followed by Neurology Service. PAST MEDICAL HISTORY: Diabetes, peripheral neuropathy, hypotension, rheumatoid arthritis, diabetic retinopathy, macular degeneration, hypertension, depression, laparoscopic band surgery, splenectomy, cholecystectomy, bilateral cataract surgery, stomach stapling. ALLERGIES: None. MEDICATIONS: As noted on JAN, now on acyclovir that was started yesterday evening. FAMILY HISTORY: Noncontributory. SOCIAL HISTORY: Nonsmoker, no significant alcohol intake. REVIEW OF SYSTEMS: Ten-point review was negative other than what was described above. PHYSICAL EXAMINATION: [facility] [address] [place] [address] CONSULTATION Name: SYDNEY STEINBERG Room #: 463-P [facility] IN M.R.#: [id number] Admission: 04/10/19 ������������������ Attend Phys: Michael Terry MD Discharge: ������������������ Date of : 55 Report #: [id number] GENERAL APPEARANCE: The patient was awake and oriented. She could not give me details of history of day of admission. She was in no acute distress. VITAL SIGNS: Afebrile, vital signs were stable. SKIN: Without rash or decubitus. No palpable adenopathy. HEENT: Eyes, without scleral icterus. Mouth without mucositis. NECK: Supple. LUNGS: Clear. HEART: Regular, without murmur, gallop or rub. ABDOMEN: Soft and nontender with no hepatosplenomegaly or mass. EXTREMITIES: Without clubbing, cyanosis or edema. Cranial nerves were intact. Strength in upper and lower extremities was symmetric, although mild generalized weakness in her lower legs. Sensation intact to touch to upper and lower extremities. NEUROLOGIC: Mood was normal. LABORATORY STUDIES: Creatinine 0.6, alkaline phosphatase 157, ALT 11. Hemoglobin 10.8, white count 7.1, platelet count 397,000. MRSA screen was positive. Urinalysis, few wbc's and bacteria. Urine culture negative to date. MRI scan and EEG as noted above. IMPRESSION: A 63-year-old with advanced diabetes. Apparently took overdose of her insulin and developed encephalopathy and seizure disorder. Still is the possibility we could be dealing with herpes encephalitis, although given her current presentation, that would seem less likely. The EEG abnormalities, however are in the region that I would see herpes simplex infection. RECOMMENDATIONS: We will continue acyclovir, obtain lumbar puncture tomorrow and then decide on her next plan of care. She will remain on anti-seizure medicine. Endocrinology is assisting in management of her diabetes. ��������������������������������������������� <ELECTRONICALLY SIGNED> ���������������������������������������� By: Romain Kennedy MD ��������������������������������������������� 04/16/19 1605 1325 0247 Romain Kennedy MD /nt
--- NOTE | 2019-04-16 16:44 | HC ---
[facility] [place] [address] CONSULTATION Name: SYDNEY STEINBERG Room #: 463-P [facility] IN M.R.#: [id number] Admission: 04/10/19 ������������������ Attend Phys: Michael Terry MD Discharge: ������������������ Date of : 55 Report #: [id number] THIS REPORT FOR: //name// CC: [facility] REASON FOR CONSULTATION: Dysrhythmia. HISTORY OF PRESENT ILLNESS: The patient is a 63-year-old woman with a history of diabetes and several abdominal procedures for weight loss including lap band procedure. She also has a history of esophageal stricture and gastroparesis. She presents after being found unresponsive at home. Her found her blood sugar at 36. Apparently, she self-administers insulin and took an extra dose. There has been concern that she is not safe to self-administer insulin as she has macular degeneration and severe visual impairment. In the setting of encephalopathy and hypoglycemia, she had multiple metabolic derangements including hypokalemia with potassium of 3.2 and a magnesium of 1.5. Telemetry monitoring demonstrated one 5-beat radha of ventricular tachycardia. I was asked to see her in this regard. She is alert and arousable, although nonconversant. No history of palpitations. This was an asymptomatic rhythm disturbance. MEDICATIONS: Reported medicines include Protonix 40 mg twice daily, lisinopril 10 mg daily, amlodipine 5 mg daily, Cymbalta 30 mg daily, hydrocodone, erythromycin. ALLERGIES: No known drug allergies. PAST MEDICAL HISTORY: Medical records have been reviewed and include a history of lap band surgery, splenectomy, cholecystectomy, diabetes, right femur fracture. SOCIAL HISTORY: She is nonsmoker, . FAMILY HISTORY: Notable for mother who had a history of multiple sclerosis. REVIEW OF SYSTEMS: All systems negative except as that noted above. PHYSICAL EXAMINATION: GENERAL: This is a frail woman who appears much older than her stated age. VITAL SIGNS: Blood pressure is 150/79, heart rate of 80 and regular. She is afebrile. HEENT: There is neither xanthelasma, subcutaneous xanthomata, oral mucosal or digital cyanosis or kyphoscoliosis present. CHEST: Clear to auscultation and percussion. CARDIOVASCULAR: Regular rate and rhythm with normal S1, S2. [facility] [address] [address] CONSULTATION Name: SYDNEY STEINBERG Room #: [address] [place] [address] IN M.R.#: [id number] Admission: 04/10/19 ������������������ Attend Phys: Michael Terry MD Discharge: ������������������ Date of : 55 Report #: [id number] ABDOMEN: Soft and nontender. EXTREMITIES: Without cyanosis, clubbing or edema. Radial pulses are 2+. NEUROLOGIC: She is alert with a nonfocal exam. LABORATORY DATA: Sodium 143, potassium 3.2, creatinine 1.0, magnesium 1.5. White count 7.1, hemoglobin 10, hematocrit 33, platelet count 397. EKG, sinus rhythm with first degree AV block, nonspecific T-wave abnormality. IMPRESSION: 1. Severe hypoglycemia. 2. Diabetes, insulin requiring. 3. History of gastroparesis. 4. Five beats of nonsustained ventricular tachycardia in the setting of multiple metabolic derangements. RECOMMENDATIONS: Replete potassium and magnesium. For recurrent ventricular dysrhythmias with normal electrolytes, consider beta osmar therapy. I have discussed these issues with the patient and nursing staff. Thank you for asking me to participate in her care. ��������������������������������������������� <ELECTRONICALLY SIGNED> ���������������������������������������� By: Yung Rizvi MD, FACC ��������������������������������������������� 04/16/19 1644 0740 0033 Yung Rizvi MD, FAC /nt
--- NOTE | 2019-04-16 18:25 | NUR ---
Received awake on bed. Due medications given as prescribed. With avitia in situ-draining well. Assisted in ADLs. With wound at left leg- dressing changed today. Visited by relative today. Seen by Dr. Massey- as per ID nurse to ask if ok to remove avitia, Dr Massey agreed to have avitia removed, for possible rehab upon d/c. With consult to Dr. Mas- US called in for consult. PT's wanted to talk to JUAN CARLOS- Abbey seen pt's . On blood sugar monitoring- CBG results relayed to Dr Naik directly. With SL at R forearm- patent and infusing well. Vital signs stable. Able to swallow medications without difficulty
[2019-04-16 19:40] VITALS: BP 139/92
--- NOTE | 2019-04-17 03:10 | NUR ---
Assumed care at 1845. Pt resting in bed. AOX4. VSS. Son is at bedside. Did a bladder scan residual was 658mls. Call [facility] got orders for straight cath. Emptied 500mls. Still on seizure precaution. Last Blood sugars were 130. Will inform Dr. Naik in the am. No identified needs at the moment. Will continue to monitor.
[2019-04-17 03:11] VITALS: BP 120/73
[2019-04-17 06:22] LABS: CALCIUM 8.4 mg/dL (8.5-10.1); CREATININE 1.4 mg/dL (0.6-1.0); MAGNESIUM 2.1 mg/dL (1.8-2.4); POTASSIUM 4.6 mmol/L (3.5-5.1)
[2019-04-17 07:40] VITALS: BP 134/75
--- NOTE | 2019-04-17 09:30 | NUR ---
PT ALERT TO PLACE AND PERSON, HAS SOME FORGETFULNESS. PT NEEDS UP WITH ASSIST X1 TO BATHROOM. PT LUNGS CLEAR. PT DENIES ANY PAIN. PT IS POSS. DISCHARGE TODAY IF BED AVAILABLE AT [facility].
--- NOTE | 2019-04-17 10:30 | NUR ---
WOUND CARE FOLLOW UP; THIS PATIENT IS DOING MUCH BETTER. HER MENTAL STATUS SEEMS TO BE IMPROVING DAILY. THE FOOT WOUNDS ARE ALMOST COMPLETLY HEALED. RECOMMENDATION; WOUND CARE WILL SIGN OF AT THIS TIME. RECONSULT IF NEEDED. DISCUSSED WITH BALA
[2019-04-17] MEDS ORDERED: KEPPRA1000 MG PO (11:08)
[2019-04-17] MEDS ORDERED: MAG6464 MG PO (11:08)
[2019-04-17] MEDS ORDERED: TRADJENTA5 MG PO (11:08)
--- NOTE | 2019-04-17 13:07 | PATH ---
[facility] [address] [place] [address] PATHOLOGY RPT PROCEDURE Name: SYDNEY STEINBERG Room #: 463-P ADM IN M.R.#: [id number] ������������������ Admission: 04/10/19 ������������������ Date of : 55 Discharge: Report #: [id number] Path Case #: [id number] Note [facility] Accession Number: [id number] TESTS RESULT FLAG UNITS REF RANGE LAB Clinician Provided Cytology Information No. of containers..01 Other (Miscellaneous) Source: CSF DIAGNOSIS: 02 CSF NEGATIVE FOR MALIGNANT CELLS. FEW LYMPHOCYTES PRESENT. NEGATIVE FOR VIRAL INCLUSIONS OR PARASITIC ORGANISMS. Pathologist ICD10: 02 E16.2 Signed out by: Mae Molina MD, Pathologist NPI- [id number] Performed by: May Jackman, Dragline Mechanic ([facility]) Gross description: 01 2ML, COLORLESS, CLEAR /LCS FLAG LEGEND: L-Low Normal,H-High Normal,LL-Alert Low,HH-Alert High <-Panic Low,>-Panic High,A-Abnormal,AA-Critical Abnormal Performed at: [address] [place] [address] Justin Hamilton MD, [address] [address] Mae Molina MD, Specimen Comment: A courtesy copy of this report has been sent to Specimen Comment: [phone], , . Specimen Comment: Report sent to ,DR PENNINGTON / DR ROQUE Specimen Comment: A duplicate report has been generated due to demographic updates. Performed at: [address], [place], [place] [address] MD Justin Hamilton MD Phone: [phone]
--- NOTE | 2019-04-17 14:34 | EEG ---
[facility] [place] [address] ELECTROENCEPHALOGRAM Name: SYDNEY STEINBERG Room #: 463-P ADM IN M.R.#: [id number] ������������������ Admission: 04/10/19 ������������������ Attend Phys: Michael Terry MD Discharge: ������������������ Date of : 55 Report #: [id number] ����������������������������������������������������������������� [id number] THIS REPORT FOR: //name// CC: Michael Terry [facility] unknown DATE OF SERVICE: 04/15/2019 This patient is being evaluated for seizure. The EEG was done by placing the electrodes by standard 10-20 system of electrode placement. Both referential and sequential montages were used for recording. Background activity in this patient's EEG is about 8 Hz and 30 microvolt. The patient goes to sleep that was associated with bilateral slowing and vertex sharp waves. A lot of artifact is present in the frontal lead, which is probably eye movement artifact. IMPRESSION: This patient's EEG is still moderately abnormal because it is intermixed with theta range slowing. A lot of artifact is present in the frontal area that appeared to be eye movement artifact, but abnormality cannot be fully excluded. Thank you very much for this referral and if you have any questions, please feel free to contact me. ���������������������������������������� <ELECTRONICALLY SIGNED> ���������������������������������������� By: Gary Allison MD ��������������������������������������������� 04/17/19 1434 06 2214 Gary Allison MD /nt
--- NOTE | 2019-04-17 15:04 | NUR ---
JUAN CARLOS SPOKE WITH [facility] AT [facility] AND SHE INDICATED THEY RECIEVED REFERRAL AND HAVE SUBMITTED FOR AUTH. PT AND SPOUSE AWARE. AWAITING AUTH. JUAN CARLOS TO FOLLOW INDICATED WITH DC PLANNING.
[2019-04-17 18:08] LABS: HSV 1 DNA Negative (Negative); HSV 2 DNA Negative (Negative)
[2019-04-17 20:33] VITALS: BP 127/69
[2019-04-18 04:35] VITALS: BP 132/71
--- NOTE | 2019-04-18 04:46 | NUR ---
Pt. rested quietly at intervals during the night when checked on during frequent rounds. She has been ambulating to the bathroom with assistance of one,walker and gait belt. Bed alarm is on.
--- NOTE | 2019-04-18 08:15 | NUR ---
PATIENT CARE WAS ASSUMED AT 0715.PATIENT IS ALERT AND ORIENTED X4.PATIENT IS X1 ASSIST.PT IS LEGALLY BLIND.PATIENT IS A SNEID BLOOD SUGARS THAT NEED TO BE CHECKED, AND CALLED IN AT THE TIMES LISTED IN CHART.IV IN BOTH ARMS ARE PATIENT AND SALINE LOCKED.PT WILL BE DISCHARGED LATER TO GO TO [facility].PATIENT HAS LEFT LATERAL LEG DRESSING THAT IS CHANGED DAILY.CALL LIGHT PHONE, AND PERSONAL BELONGINGS ARE WITHIN REACH.
[2019-04-18 08:57] VITALS: BP 132/94
--- NOTE | 2019-04-18 15:00 | NUR ---
DISCHARGE ORDERS RECEIVED. PATIENT DISCHARGING TO [facility], POST ACUTE CARE UNIT. CHART COPIED PER GRINDER OPERATOR SURFACE TOOL. ORDERS FAXED TO [facility], ADMISSIONS FOR [facility]. [id number] COMPLETED AND PLACED IN PATIENTS DISCHARGE PACKET PER UNIT SW. TRANSPORTATION ARRANGED FOR [phone] HOURS. NOTIFIED PER UNIT SW. UNIT RN NOTIFIED AND CONTACT NUMBER FOR REPORT PROVIDED.
[2019-04-18 15:02] VITALS: BP 141/74
--- NOTE | 2019-04-18 17:49 | NUR ---
PATIENT WILL BE DISCHARGED TO GO TO [facility].IV'S WERE TAKEN OUT CATH IS INTACT.PATIENT'S BELONGINGS WERE PACKED.PATIENT WAS TAKEN TO THE BATHROOM AND DRESSED.PACKET IS READY FOR TRANSPORTATION.TRANSPORTATION WILL ARRIVE AT 1800.PT WILL GO BY W/C.REPORT WAS CALLED, SPOKE WITH ANABEL NURSE.
[2019-04-19 08:39] LABS: HSV PCR SOURCE CSF
--- NOTE | 2019-04-29 15:26 | HC ---
[facility] [place] [address] CONSULTATION Name: SYDNEY STEINBERG Room #: 463-P [facility] IN M.R.#: [id number] Admission: 04/10/19 ������������������ Attend Phys: Michael Terry MD Discharge: 04/18/19 ������������������ Date of : 55 Report #: [id number] THIS REPORT FOR: //name// [facility] DATE OF SERVICE: 04/16/2019 HISTORY OF PRESENT ILLNESS: The patient is a 63-year-old white female, previously known to me who was found at home by when he came home for lunch with a blood sugar in the 30s. She was noted to have mental status changes, had a seizure. Apparently had taken too much insulin, which is an issue with her decreased vision. She was seen by Neurology with negative workup for seizure disorder, thought to be secondary to the low blood sugar. She did have some nausea and vomiting, probably due to gastroparesis as well as some dysphagia, which resolved. She has been diagnosed with acute encephalopathy that appears to be improving. We are seeing her in Rehabilitation Medicine consultation. PAST MEDICAL HISTORY: Includes prior right tibia fracture and a left medial malleolar fracture, was nonweightbearing bilateral lower extremities back in 07/2018. She has a history of lap band surgery, esophageal narrowing with dysphagia, legally blind, orthostatic hypotension, diabetic neuropathy, gastroparesis. MEDICATIONS: Please see the full medication listing. This includes vitamins, herbals, and supplements. ALLERGIES: No known drug allergies have been noted. SOCIAL HISTORY: Lives in a house with her , stair glide to the garage, no steps, utilized a wheelchair for the most part to get around. Her works the evening shift. She has had a history of recent falls and that she has been using a wheelchair more. She does have decreased balance with her neuropathy. REVIEW OF SYSTEMS: No current complaints of chest pain, shortness of breath or abdominal discomfort. She does have the decreased distal sensation consistent with her neuropathy. PHYSICAL EXAMINATION: GENERAL: A 63-year-old white female, chronically ill appearing, thin body habitus. VITAL SIGNS: Temperature 36.8, pulse 84, respirations 16, blood pressure 141/88. [facility] [address] [place] [address] CONSULTATION Name: SYDNEY STEINBERG Room #: 463-P DIS IN M.R.#: [id number] Admission: 04/10/19 ������������������ Attend Phys: Michael Terry MD Discharge: 04/18/19 ������������������ Date of : 55 Report #: [id number] NEUROLOGIC: She is edentulous. Facies are symmetric. Follows basic commands without difficulty. Noted to be legally blind. Functional range of motion of both upper extremities with strength grade 3+/5. DTRs trace to 1. Lower extremities functional range of motion, strength grade 3+/5. DTRs are trace to 1. No focal calf swelling. She has been needing assistance with basic transfers and has ambulated a short distance with a front-wheeled walker. ASSESSMENT: A 63-year-old white female with the following problem list: 1. Acute encephalopathy appears secondary to seizure and hypoglycemia that appears to be improving. 2. Diabetic peripheral neuropathy. 3. Gait instability with history of frequent falls, has been essentially wheelchair bound at home. 4. Recurrent episodes of hypoglycemia with the patient having difficulty with administration due to blindness. 5. Recurrent nausea and vomiting, history of gastric bypass. GI is involved. 6. Depression. 7. Hypertension. PLAN: The patient had recent prolonged [facility] stay after bilateral lower extremity fractures. Note that different facilities are being considered as per case management. Would agree with looking at discharge planning referral options as you are considering. Thank you for asking us to assist in this patient's care. ��������������������������������������������� <ELECTRONICALLY SIGNED> ���������������������������������������� By: Kaden Mas MD ��������������������������������������������� 04/29/19 1526 1511 0624 Kaden Mas MD /PMT
== END 2019-04-18 18:15 | DRG 637 ==
LOC: ER 11:50 → EROBS 15:38 → 2N 15:38 → 4W 04-14 13:24
PROVIDERS: Emergency Medicine; Internal Medicine; Psychiatry & Neurology Neurology; ADMIT Hospitalist
DX: E11.649 Type 2 diabetes mellitus with hypoglycemia without coma (principal); E43 Unspecified severe protein-calorie malnutrition; I47.2 Ventricular tachycardia; G93.40 Encephalopathy, unspecified; B02.0 Zoster encephalitis; H54.8 Legal blindness, as defined in USA; E11.42 Type 2 diabetes mellitus with diabetic polyneuropathy; F32.9 Major depressive disorder, single episode, unspecified; K21.9 Gastro-esophageal reflux disease without esophagitis; M06.9 Rheumatoid arthritis, unspecified; G40.909 Epilepsy, unspecified, not intractable, without status epilepticus; E11.65 Type 2 diabetes mellitus with hyperglycemia; Z90.81 Acquired absence of spleen; Z93.1 Gastrostomy status; Z90.49 Acquired absence of other specified parts of digestive tract; Z79.4 Long term (current) use of insulin; Z98.42 Cataract extraction status, left eye; Z98.41 Cataract extraction status, right eye; Z87.81 Personal history of (healed) traumatic fracture; Z82.0 Family history of epilepsy and other diseases of the nervous system; Z79.899 Other long term (current) drug therapy
CPT/HCPCS: 10040; 10081

== ENCOUNTER → 2019-07-25 | Outpatient (CLI) | payer OTHER ==
[~2019-07-25] MED LIST changes: +KEPPRA1000 MG PO; +MAG6464 MG PO
--- NOTE | ~2019-07-25 | EEG ---
[facility] Deisi [place] [address] ELECTROENCEPHALOGRAM Name: SYDNEY STEINBERG Room #: REG CRISTI Mullen#: [id number] ������������������ Admission: 07/25/19 ������������������ Attend Phys: Cyndy Mendoza DO Discharge: ������������������ Date of : 55 Report #: [id number] ����������������������������������������������������������������� [id number] THIS REPORT FOR: //name// CC: Keyla Mendoza DATE OF SERVICE: 07/25/2019 This patient is being evaluated for the possibility of seizure. EEG was done by placing the electrode by standard 10-20 system of electrode placement. Both referential and sequential montages were used for recording. Background activity in this patient's EEG is about 9 Hz and 30 microvolts. It is a symmetrical activity. The patient became drowsy and that is also associated with bilateral slowing. Photic stimulation was unremarkable. Throughout the record, no active epileptiform activity was noticed. IMPRESSION: This patient's EEG is intermixed with some theta range slowing. That is a nonspecific finding, which can occur with drowsiness, effect of psychotropic medication, dementia, etc. No active epileptiform activity was noticed. Thank you very much for this referral. It might be mentioned that EEG can be normal in a patient with a seizure disorder. ���������������������������������������� ���������������������������������������� By: ��������������������������������������������� 1612 1707 Gary Allison MD /nt
== END ==
LOC: NEURO 10:08
DX: G40.009 Localization-related (focal) (partial) idiopathic epilepsy and epileptic syndromes with seizures of localized onset, not intractable, without status epilepticus (principal)

== ENCOUNTER 2019-11-05 17:51 | Emergency (ER) | payer OTHER ==
[~2019-11-05] VITALS: Ht 175.3 cm; Wt 86.2 kg
[2019-11-05 18:24] LABS: ABSOLUTE NEUTROPHILS 4.6 thou/uL (1.4-8.2); BASOPHILS 1.1 % (0.0-2.0); EOSINOPHILS 1.2 % (0.0-3.0); HEMATOCRIT 26.9 % (37.0-47.0); HEMOGLOBIN 8.5 gm/dL (12.0-15.0); LYMPHOCYTES 14.6 % (24.0-44.0); MCHC 31.6 g/dL (28.0-37.0); MCV 85.4 fL (80.0-100.0); MONOCYTES 3.9 % (1.0-8.0); PLATELET COUNT 523 thou/uL (150-400); POLYS 79.2 % (36.0-66.0); RBC 3.15 mil/uL (4.20-5.00); RDW 18.7 % (10.5-14.5); WBC 5.8 thou/uL (4.0-11.0)
[2019-11-05 18:30] LABS: ANION GAP 7 mmol/L (7-16); BUN 21 mg/dL (7-18); CALCIUM 9.2 mg/dL (8.5-10.1); CHLORIDE 104 mmol/L (98-107); CO2 29 mmol/L (21-32); GLUCOSE 180 mg/dL (74-106); POTASSIUM 4.2 mmol/L (3.5-5.1); SODIUM 140 mmol/L (136-145)
[2019-11-05 18:40] LABS: ALBUMIN 2.8 g/dL (3.4-5.0); SGOT 20 U/L (15-37); SGPT 16 U/L (30-65); TOTAL BILIRUBIN 0.2 mg/dL (<0.1-1.0); TOTAL PROTEIN 7.8 g/dL (6.4-8.2); TROPONIN-I <0.06 ng/mL (<0.06)
[2019-11-05 20:01] LABS: URINE BILIRUBIN NEGATIVE (Negative); URINE BLOOD NEGATIVE (Negative); URINE CLARITY CLEAR; URINE COLOR YELLOW; URINE GLUCOSE-RANDOM* NEGATIVE (Negative); URINE KETONES NEGATIVE (Negative); URINE LEUKOCYTES-REFLEX NEGATIVE (Negative); URINE NITRITE-REFLEX NEGATIVE (Negative); URINE PROTEIN (DIPSTICK) NEGATIVE (Negative); URINE SPECIFIC GRAVITY 1.025 (1.005-1.035); URINE UROBILINOGEN 0.2 E.U./dl (0.2-1.0)
[2019-11-05 22:14] VITALS: BP 179/95
--- NOTE | 2019-11-08 14:55 | EKG ---
[address] [address] ELECTROCARDIOGRAM REPORT Name: RANDYLIZABETHZASYDNEY [facility] [id number] Admission: 11/05/19 Attend Phys: Discharge: 11/05/19 Date of : 55 Report #: [id number] THIS REPORT FOR: //name// [facility] ED Test Date: 2019-11-05 Test Time: 18:57:32 Pat Name: SYDNEY STEINBERG Department: Room: Gender: F Feeder Operator: JOVON : 1955 Requested By: Raudel Marin Order Number: [id number] MD: Bret Silva Measurements Intervals [place] Rate: 69 P: 19 MA: 196 QRS: 4 QRSD: 90 T: 33 QT: 447 QTc: 479 Interpretive Statements Sinus rhythm Borderline low voltage, extremity leads Borderline prolonged QT interval Compared to ECG 04/12/2019 07:47:40 ST (T wave) deviation no longer present Electronically Signed On 11-08-2019 14:54:40 FIELD RECRUITER by Bret Silva [email or web address] <ELECTRONICALLY SIGNED> By: Bret Silva MD 11/08/19 1454 56 56 Bret Silva MD /EPI
== END 2019-11-05 22:20 | disposition home or self-care (01) ==
LOC: ER 17:51
PROVIDERS: Emergency Medicine
DX: E11.649 Type 2 diabetes mellitus with hypoglycemia without coma (principal); R11.2 Nausea with vomiting, unspecified; E11.42 Type 2 diabetes mellitus with diabetic polyneuropathy; F32.9 Major depressive disorder, single episode, unspecified; K21.9 Gastro-esophageal reflux disease without esophagitis; F03.90 Unspecified dementia, unspecified severity, without behavioral disturbance, psychotic disturbance, mood disturbance, and anxiety; Z90.81 Acquired absence of spleen; Z79.899 Other long term (current) drug therapy; Z79.4 Long term (current) use of insulin; Z90.49 Acquired absence of other specified parts of digestive tract; Z86.14 Personal history of Methicillin resistant Staphylococcus aureus infection

== ENCOUNTER 2019-12-31 15:35 | Inpatient (IN) | payer OTHER ==
[~2019-12-31] VITALS: Ht 170.2 cm; Wt 53.1 kg
--- NOTE | ~2019-12-31 | O ---
[facility] [place] [address] OPERATIVE REPORT Name: SYDNEY STEINBERG Room #: 440-P ADM IN M.R.#: [id number] Admission: 12/31/19 Attend Phys: Michael Terry MD Discharge: Date of : 55 Report #: [id number] THIS REPORT FOR: cc: Luis F Bower,Po Aaron MD ~ CC: Michael Bower DATE OF SERVICE: 01/01/2020 PREOPERATIVE DIAGNOSIS: Left 2-part intertrochanteric femur fracture. POSTOPERATIVE DIAGNOSIS: Left 2-part intertrochanteric femur fracture. PROCEDURE PERFORMED: Intramedullary nailing of left intertrochanteric femur fracture. SURGEON: Po Isbell MD DRIVER MATERIAL HANDLER: Carine Villanueva PA-C. ANESTHESIA: General. FLUIDS: 100 mL crystalloid. ESTIMATED BLOOD LOSS: Less than 10 mL. IMPLANTS UTILIZED: Synthes TFNA fenestrated helical blade system, 11 mm x 130 degree nail with an 85 mm helical blade and 36 mm distal locking screw. DESCRIPTION OF PROCEDURE: After proper identification of the patient and operative site in preoperative holding area, the operative site was signed by myself. Prophylactic antibiotics given. The patient elected to proceed with the above. She was brought back to the operative suite after induction of satisfactory general anesthesia. She was carefully positioned on the Bay fracture table. A well-padded boot stabilization was utilized. The legs were scissored. Fracture reduction was checked with intraoperative C-arm and deemed to be in satisfactory position and primarily 2-part fracture pattern was noted within the intertrochanteric region. The limb was sterilely prepped and draped in usual manner. Final draping was with an Ioban isolation drape. An incision proximal to the greater trochanter was planned after a timeout. Skin was incised sharply. Full thickness skin flaps were developed. Fascia was incised longitudinally and a guide pin was advanced into the more superior aspect of the greater trochanter. This was then advanced to approximately the level of the lesser trochanter and the soft tissue sleeve and reamer were then used to [address] [address] OPERATIVE REPORT Name: SYDNEY STEINBERG Room #: 440-P ADM IN .R.#: [id number] Admission: 12/31/19 Attend Phys: Michael Terry MD Discharge: Date of : 55 Report #: [id number] the proximal portion of the femur and 11 mm diameter nail was chosen and this was inserted on the insertion handle, carefully impacted into position. Through a separate more distally based incision, the helical blade drill sleeves were advanced to the lateral cortex of the femur where a guide pin was advanced into the femoral head while checking in the AP and lateral planes. It was deemed to be in satisfactory position. Outer cortex was reamed and an 85 mm helical blade was carefully impacted into position. The proximal locking screw was tightened and then backed off 1/4 turn to allow for some compression across the fracture site. Next, through a separate more distally based incision, a 36 mm locking screw was inserted. Implant position and fracture reduction were satisfactory when checked in the AP and lateral planes. Insertion handle was removed. The wound was thoroughly irrigated with normal saline. Fascia was closed with 0 Vicryl, 2-0 Vicryl for the subcutaneous tissues, final skin closure was with korin. Sterile dressing was applied. At time of dictation, the patient was still in the operative suite with anticipated discharge to the recovery room in stable condition. By: 1800 [id number] Po Isbell MD /nt
[2019-12-31 15:37] VITALS: BP 181/125
[2019-12-31 19:50] VITALS: BP 125/74
--- NOTE | 2019-12-31 21:31 | NUR ---
called back for consult. Read all X-ray/CT scan result to him. He order CT of left shoulder and NPO.
--- NOTE | 2019-12-31 23:42 | NUR ---
CALL REPORT TO BALA COSME.
[2019-12-31 23:45] VITALS: BP 125/74
[2019-12-31 23:52] LABS: ABSOLUTE NEUTROPHILS 8.9 thou/uL (1.4-8.2); BASOPHILS 0.4 % (0.0-2.0); EOSINOPHILS 0.4 % (0.0-3.0); HEMOGLOBIN 8.7 gm/dL (12.0-15.0); LYMPHOCYTES 7.7 % (24.0-44.0); MCH 26.5 pg (26.0-34.0); MCHC 31.1 g/dL (28.0-37.0); MCV 85.1 fL (80.0-100.0); MONOCYTES 5.5 % (1.0-8.0); PLATELET COUNT 336 thou/uL (150-400); RBC 3.29 mil/uL (4.20-5.00); RDW 16.1 % (10.5-14.5); WBC 10.4 thou/uL (4.0-11.0)
[2019-12-31 23:54] LABS: CALCIUM 8.8 mg/dL (8.5-10.1); CREATININE 0.8 mg/dL (0.6-1.0); POTASSIUM 4.8 mmol/L (3.5-5.1)
[2019-12-31 23:57] LABS: APTT 28.6 Seconds (24.5-32.8); PROTIME 10.7 Seconds (9.3-11.4)
[2020-01-01] VITALS (8 sets, daily range): BP systolic 102–161; BP diastolic 45–86
--- NOTE | 2020-01-01 00:56 | NUR ---
ADRIA DUARTE CALLED BACK. NOTIFIED CT SCAN OF LEFT SHOULDER RESULT. PLAN FOR SX IN AM.
--- NOTE | 2020-01-01 01:53 | NUR ---
PT ARRIVED ON THE UNIT FROM ER VIA CART. A&OX4 IV INTACT AND FLUIDS INFUISING. PT NPO FOR SX IN THE AM. ADMISSION DONE AND PT ORIENTED TO THE UNIT. NO SKIN ISSUES, LUNG SOUNDS CLEAR. PAIN MEDS GIVEN PRIOR TO ARRIVAL. CALL LIGHT IN PLACE AND FALL PREC INTACT WILL CONT WITH POC TILL EOS.
[2020-01-01 06:55] LABS: HEMATOCRIT 27.1 % (37.0-47.0); HEMOGLOBIN 8.4 gm/dL (12.0-15.0); MCH 26.4 pg (26.0-34.0); MCV 85.3 fL (80.0-100.0); RBC 3.17 mil/uL (4.20-5.00); RDW 15.6 % (10.5-14.5); WBC 8.8 thou/uL (4.0-11.0)
[2020-01-01 07:07] LABS: CALCIUM 8.9 mg/dL (8.5-10.1); CREATININE 0.8 mg/dL (0.6-1.0)
--- NOTE | 2020-01-01 07:59 | NUR ---
PATIENT WITH HIP FX, WILL AWAIT POST OP ORDERS.
--- NOTE | 2020-01-01 08:23 | EKG ---
[facility] [place] [address] ELECTROCARDIOGRAM REPORT Name: SYDNEY STEINBERG Room #: 440-P ADM IN M.R.#: [id number] Admission: 12/31/19 Attend Phys: Michael Terry MD Discharge: Date of : 55 Report #: [id number] THIS REPORT FOR: cc: Luis F Bower James A. DO Couchonnal, Luis F. MD ~ THIS REPORT FOR: //name// [facility] ED Test Date: 2019-12-31 Test Time: 18:15:45 Pat Name: SYDNEY STEINBERG Department: Room: 440 Gender: F Leather Splitter: JORGE A : 1955 Requested By: Ric Borrero Order Number: [id number] MD: Bret Silva Measurements Intervals [place] Rate: 78 P: -67 NH: 157 QRS: 63 QRSD: 90 T: 62 QT: 398 QTc: 454 Interpretive Statements Sinus or ectopic atrial rhythm Compared to ECG 11/05/2019 18:57:32 Ectopic atrial rhythm now present Sinus rhythm no longer present Electronically Signed On 01-01-2020 8:22:06 [facility] by Bret Silva [email or web address] <ELECTRONICALLY SIGNED> By: Bret Silva MD 01/01/20 0822 181 14 Bret Silva MD /EPI
--- NOTE | 2020-01-01 16:02 | NUR ---
Case opened to follow for dc planning. Pt known to cm from multiple admissions over the past couple of years. The pt admitted from home where she lives with her spouse. She was dc'd from SNF at [facility] 3 weeks ago and had been doing well until she lost her balance and fell at a resturant. She was admitted with a lt hip fx and lt humerus fx. Ortho consult with possible surgery later today. Cheese Grader visited with the pt at bedside. She was a&ox3 the first time and confused ox1 the second likely d/t pain meds. She is aware that she will need rehab again at [facility] and wants to go back to [facility]. She has a rwalker, w/c, stair glide and bath bench at home. She has a caregiver through her [place] medicaid 5hrs a day when her spouse works. He works M-F 2pm to 10pm and the caregiver comes from 2pm to 7pm. She reported she was walking with a walker and able to get around the house and use the stair glide. She is legally blind and needs help with medication setup, adl setup and meal prep. She reports she was doing well until this mishap. F/u visit made with the pt and call placed to the pt's spouse to discuss SNF options. [facility] was contacted and they declined the pt's referral due to non compliance. Pt and her spouse alerted. [facility] medicare list reviewed and left at bedside for the pt and spouse to reveiw. They prefer a [place] facility due to her secondary ins. Pt's spouse reports that the pt can be forgetful at times. [facility] medicare list printed and left at bedside. Tanya barkley and [facility] discussed as possible options. Spouse to tour and f/u with cm.
--- NOTE | 2020-01-01 18:18 | H ---
[facility] [place] [address] HISTORY AND PHYSICAL Name: SYDNEY STEINBERG Room #: 440-P ADM IN M.R.#: [id number] Admission: 12/31/19 Attend Phys: Michael Terry MD Discharge: Date of : 55 Report #: [id number] THIS REPORT FOR: //name// CC: Michael Bower DATE OF SERVICE: 12/31/2019 CHIEF COMPLAINT: Left hip and left shoulder pain status post fall. HISTORY OF PRESENT ILLNESS: The patient is a pleasant 64-year-old female who was admitted through the Emergency Department at [facility] yesterday following a fall. The patient reports that she was at a restaurant and was looking for her sunglasses when she turned around, lost her balance and fell landing on her left hip and shoulder. The patient denies any dizziness, loss of consciousness before or after the fall. The patient also denies tripping on any uneven aspects of the floor. She states that she simply turned and lost her balance and fell. She currently localizes pain to the posterior aspect of the left hip and anterior and posterior aspects of the left shoulder. The patient reports that she typically ambulates without assistance and was walking under her own power at the restaurant yesterday when she fell. She denies any prior issues with her left hip, but states that about a year ago, she had a right femur fracture, which she had surgically repaired. The patient also reports diabetic neuropathy in bilateral feet as well. The patient denies any prior shoulder pain or problems. ALLERGIES: No known drug allergies. REPORTED MEDICATIONS: 1. Pantoprazole. 2. Zofran. 3. Lisinopril. 4. Duloxetine. 5. [place] 5/325. 6. Long-acting insulin. PAST MEDICAL AND SURGICAL HISTORY: 1. Right hip IM nail in 10/2018. 2. Lap band surgery x 2 3. Splenectomy. 4. Dysphagia. 5. PEG tube placement and removal. 6. Cholecystectomy. 7. Esophagitis, ectopic , orthostatic hypotension, diabetic peripheral neuropathy. 8. Gastroparesis. [facility] [address] [place] [address] HISTORY AND PHYSICAL Name: SYDNEY STEINBERG Room #: 440-P [facility] IN ..#: [id number] Admission: 12/31/19 Attend Phys: Michael Terry MD Discharge: Date of : 55 Report #: [id number] 9. Cataract surgery. 10. Hiatal hernia surgery. 11. History of methicillin-resistant Staphylococcus aureus in 06/2018. 12. Dental surgery. 13. Left ankle ORIF. SOCIAL HISTORY: The patient lives at home, typically has an aide with her when she leaves the house, ambulates without assistance and denies any drug, tobacco, or alcohol use. PHYSICAL EXAMINATION: VITAL SIGNS: Temperature 36.8, pulse 161/79, pulse rate 82 and bedside pulse oximetry 96. Height 170 cm, weight 53 kilos. GENERAL: The patient is awake and alert, in no acute distress. EXTREMITIES: Left lower extremity is vascularly intact, diminished sensation in the foot and lower leg, this is symmetric to the right leg examined consistent with the patient's report of peripheral neuropathy secondary to her diabetes. Calf is soft, nontender, no tenderness to palpation of the knee or thigh. Tenderness to palpation of the posterior hip, no tenderness to palpation of the anterior lateral aspects of the hip or pelvis. Pain with attempted passive range of motion of the left hip. Left upper extremity is neurovascularly intact, no tenderness to palpation of the fingers, hand, wrist, and elbow. No pain with passive wrist or elbow range of motion. There is tenderness to palpation of the anterior, posterior, and lateral aspects of the proximal humerus. Pain with attempted passive range of motion of the left shoulder. IMAGING: Pelvis CT performed on 10/30/2020 shows a left intertrochanteric fracture with mild overriding and dorsal angulation of the distal fracture fragment. No femoral neck fracture seen. No pelvic fractures identified. Stable ORIF of the right hip. Left shoulder CT performed on 10/30/2020 shows a mildly comminuted, impacted fracture involving the surgical neck region of the proximal left humerus. The humeral head still remains in anatomic relationship to the glenoid. ASSESSMENT: Left intertrochanteric femur fracture, left hip pain, left shoulder pain, and comminuted and impacted fracture of the left proximal humerus. PLAN: I discussed treatment options with the patient's left hip including both operative and nonoperative treatment options. The patient had a prior IM nail of the right hip a little over a year ago and states that she did well with this. She was able to return to ambulation without assistive devices and has elected to proceed with operative intervention of the left hip today. We discussed the potential need for physical therapy and possibly rehab placement postop as well as the need to follow up with us for repeat radiographs to assess fracture healing. We discussed that we would have her using a walker to walk [address] [address] HISTORY AND PHYSICAL Name: SYDNEY STEINBERG Room #: 440-P ADM IN M.R.#: [id number] Admission: 12/31/19 Attend Phys: Michael Terry MD Discharge: Date of : 55 Report #: [id number] initially and as her strength improves, could discuss weaning down to a cane, but she may need a cane for balance assistance going forward and the patient verbalized understanding of this. In regards to the patient's left shoulder fracture, we discussed treatment options for this. At this point, her fracture appears very minimally displaced and I think that this would heal well with nonoperative management including sling for mobilization and watchful waiting with radiographs to assess fracture healing. The patient is in agreement with this treatment plan for the left shoulder today. We discussed with more significant displacement or other symptoms such as persistent pain or weakness, we may need to consider surgical intervention down the road, but at this point, we will plan to proceed with nonoperative treatment of the left shoulder. The patient has been made n.p.o. and today, we will plan on proceeding with left hip surgery later this afternoon. <ELECTRONICALLY SIGNED> By: ADRIA Collier 01/01/20 1818 4 ADRIA Collier /kaiser
--- NOTE | 2020-01-01 20:07 | NUR ---
Assumed care of pt at 0700. Pt alert and oriented with periods of confusion. Prn pain meds given for comfort. Pt underwent surgery today. Back from surgery after shift change. aware. Fall precautions in place.
[2020-01-02] VITALS: BP 167/67
[2020-01-02 00:31] VITALS: BP 164/63
--- NOTE | 2020-01-02 05:03 | NUR ---
ASSUMMED CARE OF PT @1900 PT ARRIVED FROM PACU @1945. DRESSING INTACT AND IV IN PLACE FLUIDS INFUISING. LFT SHOULDER SLING IN PLACE AND DRESSING INTACT IN RT HIP. PAIN MEDS GIVEN THIS SHIFT. SCD'S AND CELE HOSE INTACT WILL CONT TO MONITOR TILL EOS
[2020-01-02 05:29] VITALS: BP 135/73
[2020-01-02 07:08] VITALS: BP 112/59
--- NOTE | 2020-01-02 10:50 | NUR ---
RD recommendations: 1) REC adding accu checks as pt w/ elevated fasting per BMP and hx elevated A1c at 8-14.3%. 2) REC small, frequent meals/snacks as pt w/ hx gastroparesis. 3) REC frequent weight checks, daily or at least 2-3x/week w/ goal of no further loss.
--- NOTE | 2020-01-02 13:52 | NUR ---
Manager Audit visited with the pt at bedside and her spouse via phone. He is wanting us to fax a referral to [facility] for reconsideration. He is going to talk with their admin as the pt has been there for rehab on several different occasions. He is also going to tour [place] [facility] [place]. He is ok with referral to [place] [facility] but concerned that she may be into her copay days and [place] to cover this. Dc raw material planner to fax all three facilities. [facility] is [facility] and [facility] is [facility] pod#[facility]. Therapy has evaluated the pt today. Will follow.
[2020-01-02 16:04] VITALS: BP 142/69
--- NOTE | 2020-01-02 17:20 | NUR ---
FAXED REFERRAL TO [facility] SPOKE WITH DONALD IN ADM SHE RECEIVED REFERRAL AND CAN ACCEPT FAXED REFERRAL TO [facility] RECEIVED CONFIRMATION AND LEFT MSG WITH ROSALIE IN ADM. FAXED REFERRAL TO [facility] RECEIVED CONFIRMATION AND WILL F/U WITH FACILITY IN THE MORNING. FAXED REFERRAL TO [facility] SPOKE WITH KASI IN AMD SHE RECEIVED REFERRAL AND CAN ACCEPT.
[2020-01-02 19:50] VITALS: BP 141/68
--- NOTE | 2020-01-02 21:20 | NUR ---
Assumed care of pt patient at 0700. Pt alert but with periods of confusion. Dressing d/c/i. Pain controlled with prn pain meds. Pt up in the chair during lunch. Call light within reach. Fall precautions in place. Report given to colt MCKENNA.
--- NOTE | 2020-01-03 08:37 | NUR ---
ASSUMED PT CARE AT 1900. PT REPORTS SORENESS IN HIP BUT DOES NOT WANT ANYTHING FOR PAIN. ALERT AND ORIENTEED BUT VERY CONFUSED AT TIMES. CONSTANT REORIENTING NEEDED. INCONTINENT EPISODES TONIGHT. FLUIDS INFUSING PER ORDER. SLEPT A MAJOIRTY OF THE SHIFT.
[2020-01-03 11:54] VITALS: BP 170/116
--- NOTE | 2020-01-03 12:00 | NUR ---
PT CARE ASSUMED AT 0700. A&Ox2 TO SELF AND TIME. PT IS AWARE OF HER SURGERY AND THAT SHE NEEDS TO FOLLOW HIP PRECOUTUIONS. UP TO THE BED SIDE COMMODE. UP IN THE RECLINER IN THE MORNING. PAIN MANAGED WELL WITH PAIN MEDICATION. PT/OT ON BOARD. FALL PROTOCOLL IN PLACE. ISOLATION MAINTAINED. FLUIDS INFUSING. IV PATENT WITH NO REDNESS OR EDEMA. SURGERY SITE DRESSING INTACT WITH NO DRAINAGE. CALL LIGHT IN REACH. WILL CONTINUE TO MONITOR.
--- NOTE | 2020-01-03 13:59 | NUR ---
SPOUSE INDICATES HE HAS REVEIWED SNF OPTIONS AND WOULD LIKE THE PT TO GO TO [facility]. [facility] NOTIFIED AND THEY HAVE SUBMITTED FOR INS AUTH. POSSIBLE DC LATER TODAY TO SNF IF AUTH REC'D. CARE TEAM UPDATED.
[2020-01-03 16:20] VITALS: BP 169/79
--- NOTE | 2020-01-03 16:28 | NUR ---
FAXED DA-250 TO [place] RECEIVED CONFIRMATION. WILL F/U WITH FACILITY ON MONDAY.
--- NOTE | 2020-01-03 18:05 | NUR ---
ASSUMED CARE OF THE PT AT 1330. PTS BS CONTROLLED BY INSULIN. PT IS INCONTINENT OF URINE. R FOREARM IV DRY AND INTACT. ON ISOLATION FOR MRSA OF NARES. NO C/O PAIN ON SHIFT. FALL PRECAUTIONS IN PLACE, BED IN LOWEST POSITION AND CALL LIGHT IS IWTHIN REACH. WILL CONTINUE TO MONITOR THE PT.
[2020-01-03 20:05] VITALS: BP 162/77
[2020-01-04 00:28] VITALS: BP 139/68
--- NOTE | 2020-01-04 03:02 | NUR ---
ASSESSED AT START OF SHIFT PT A&OX3 FORGETFULL. IV INTACT AND FLUIDS INFUSING. BLOOD SUGAR CHECKED FOR INSULIN MANAGEMENT. SCD'S AND LFT SHOULDER SLING INTACT. PT ON ROOM AIR. FALL PREC IN PLACE AND CALL LIGHT IN REACH WILL CONT WITH POC TILL EOS
[2020-01-04 04:05] VITALS: BP 135/69
[2020-01-04 07:33] VITALS: BP 124/69
--- NOTE | 2020-01-04 13:25 | NUR ---
Assumed care of pt at 0700. Pt alert but with periods of confusion. Dressing c/d/i. Pt up the chair for lunch. Shoulder sling in place. IVF infusing. Call light within reach. Fall precautions in place. Will continue to monitor.
[2020-01-04 16:12] VITALS: BP 94/75
[2020-01-04 19:25] VITALS: BP 121/57
--- NOTE | 2020-01-04 19:35 | NUR ---
1900 assumed care of pt after bedside report with stephanie sanchez 191 assessment completed, pt in bed turned to left side. incision c/d/i states no le pain only ache in left shoulder. fall precautions in place, will continue to monitor with hourly roundin, contact precautions in place for prev mrsa infection.
[2020-01-05 03:30] VITALS: BP 151/65
--- NOTE | 2020-01-05 15:26 | NUR ---
VSS-AFEBRILE. OCCASIONAL PERIODS OF CONFUSION, EASLIY REORIENTED. SITS ON SIDE OF BED FOR MEALS, UP TO [facility] COMMODE WITH ASSIST X 1 FOR VOIDING. ORAL AND IV PAIN MEDICATIONS PARTIALLY RELIEVE LEFT HIP DISCOMFORT. TURNED EVERY TWO HOURS FOR COMFORT, CALLS APPROPRIATELY IF NEEDING ASSISTANCE. FALL PRECAUTIONS IN PLACE.
--- NOTE | 2020-01-05 15:50 | NUR ---
C/O BEING "VERY UNCOMFORTABLE THIS AFTERNOON." REPOSITIONED FREQUENTLY, AND ADMINISTERED BOTH IV AND PO PAIN MEDICATIONS. PAIN IS NOW TOLERABLE, AND NAUSEA HAS SUBSIDED, PATIENT IS SLEEPING.
[2020-01-05 17:11] VITALS: BP 146/75
[2020-01-05 19:25] VITALS: BP 105/59
--- NOTE | 2020-01-06 03:54 | NUR ---
ASSUMED PT CARE AT 1900. PT REPORTS PAIN IN SHOULDER, MANAGED WITH PAIN MEDS. ALERT BUT PERIODS OF CONFUSION. FLUIDS INFUSING PER ORDER. PM MEDS GIVEN. PT REFUSING SCDS TONIGHT. NO OTHER SIGNIFICANT CHANGES.
[2020-01-06 04:17] VITALS: BP 136/75
[2020-01-06 07:49] VITALS: BP 150/73
--- NOTE | 2020-01-06 12:20 | NUR ---
FAXED CLINICAL UPDATE(TODAY'S PT NOTES) TO [facility] SPOKE WITH AMA IN ADM SHE RECEIVED UPDATE AND WILL SUBMIT IT FOR AUTH.
[2020-01-06 15:43] VITALS: BP 145/66
[2020-01-06 19:42] VITALS: BP 128/57
--- NOTE | 2020-01-06 19:44 | NUR ---
Assumed care of pt at 0700. Pt alert but has intermittent episodes of confusion. Dressing c/d/i. Pt feeling weak, 2 person assist to bedside commode. Left shoulder sling in place. Pain controlled. Awaiting insurance auth for rehab facility. Fall precautions in place. Report given to colt MCKENNA.
[2020-01-07 03:00] VITALS: BP 165/75
--- NOTE | 2020-01-07 04:00 | NUR ---
ASSESSMENT COMPLETED. L ARM SLING IN PLACE.L HIP DRSG C/D. PT USING BEDPAN WELL. GIVEN MORPHINE X1 DURING THE NOC. PT IS ALERT AND ORIENTED WITH MOMENTS OF CONFUSION.FALL PREC IN PLACE.
[2020-01-07 07:27] VITALS: BP 127/64
[2020-01-07] MEDS ORDERED: HUMALOG100 UNIT/1 SUBQ ×2 (11:30→14:22)
[2020-01-07] MEDS ORDERED: PEPCID20 MG PO (11:30)
[2020-01-07] MEDS ORDERED: GLUCAGEN1 MG/1 ML IM (11:30)
[2020-01-07] MEDS ORDERED: MIRALAX17 GM PO (11:30)
[2020-01-07] MEDS ORDERED: LOVENOX40 MG/0.4 SUBQ (11:30)
--- NOTE | 2020-01-07 12:00 | NUR ---
Assumed care of pt at 0700. Pt alert but with periods of confusion. Dressing c/d/i. Shoulder sling in place. Pt will discharge to [facility] between [id number] via wheelchair van. IVF infusing. Pain controlled. Call light within reach. Fall precations in place. Will continue to monitor.
--- NOTE | 2020-01-07 12:52 | NUR ---
PT DISCHARGING TODAY TO [facility] FAXED DC ORDERS/SUMMARY TO FACILITY SPOKE WITH AMA IN ADM SHE RECEIVED ORDERS AND ARRANGED TRANSPORT BY [facility] FOR [phone]. NOTIFIED PT'S (DEANNE) OF DC AND TIME OF TRANSPORT. UNIT NOTIFIED AND CHART COPY PER US. RN TO CALL REPORT TO [phone].
== END 2020-01-07 13:14 | DRG 480 ==
LOC: ER 15:35 → 4S 18:19 → EROBS 18:19 → 4S 23:50
PROVIDERS: Emergency Medicine; ADMIT Hospitalist
PROC: 0QS906Z Reposition Left Femoral Shaft with Intramedullary Internal Fixation Device, Open Approach (ICD-10-PCS; principal; 2020-01-01)
DX: S72.002A Fracture of unspecified part of neck of left femur, initial encounter for closed fracture (principal); E43 Unspecified severe protein-calorie malnutrition; S42.302A Unspecified fracture of shaft of humerus, left arm, initial encounter for closed fracture; Z68.1 Body mass index [BMI] 19.9 or less, adult; W19.XXXA Unspecified fall, initial encounter; Y93.01 Activity, walking, marching and hiking; I10 Essential (primary) hypertension; H54.8 Legal blindness, as defined in USA; E11.42 Type 2 diabetes mellitus with diabetic polyneuropathy; E11.43 Type 2 diabetes mellitus with diabetic autonomic (poly)neuropathy; K31.84 Gastroparesis; K44.9 Diaphragmatic hernia without obstruction or gangrene; F32.9 Major depressive disorder, single episode, unspecified; K21.9 Gastro-esophageal reflux disease without esophagitis; Z79.891 Long term (current) use of opiate analgesic; Z79.899 Other long term (current) drug therapy; Z98.42 Cataract extraction status, left eye; Z98.41 Cataract extraction status, right eye; Y92.89 Other specified places as the place of occurrence of the external cause; Y99.8 Other external cause status; Z90.81 Acquired absence of spleen; Z90.49 Acquired absence of other specified parts of digestive tract
CPT/HCPCS: 10102; 50010; 50101; 50386; 51412; 51538; 52304; 56525; 57092; 62110; 62900; 70005

== ENCOUNTER 2020-01-14 00:43 | Emergency (ER) | payer OTHER ==
[~2020-01-14] VITALS: Ht 172.7 cm; Wt 57.1 kg
[~2020-01-14 00:43] MED LIST changes: +GLUCAGEN1 MG/1 ML IM; +HUMALOG100 UNIT/1 SUBQ; +LOVENOX40 MG/0.4 SUBQ; +PEPCID20 MG PO
[2020-01-14 01:47] LABS: WBC 6.9 thou/uL (4.0-11.0)
[2020-01-14 01:48] LABS: ABSOLUTE NEUTROPHILS 4.5 thou/uL (1.4-8.2); BASOPHILS 1.1 % (0.0-2.0); EOSINOPHILS 5.2 % (0.0-3.0); HEMATOCRIT 21.5 % (37.0-47.0); HEMOGLOBIN 6.6 gm/dL (12.0-15.0); LYMPHOCYTES 19.7 % (24.0-44.0); MCH 26.7 pg (26.0-34.0); MCHC 30.5 g/dL (28.0-37.0); MCV 87.3 fL (80.0-100.0); MONOCYTES 8.7 % (1.0-8.0); PLATELET COUNT 250 thou/uL (150-400); POLYS 65.3 % (36.0-66.0); RBC 2.46 mil/uL (4.20-5.00)
[2020-01-14 01:54] LABS: CALCIUM 7.9 mg/dL (8.5-10.1); CREATININE 0.6 mg/dL (0.6-1.0); POTASSIUM 3.8 mmol/L (3.5-5.1)
[2020-01-14 04:23] VITALS: BP 149/72; BP 156/79
[2020-01-14 06:36] VITALS: BP 160/79
== END 2020-01-14 06:34 | disposition home or self-care (01) ==
LOC: ER 00:43
PROVIDERS: Emergency Medicine
DX: D64.9 Anemia, unspecified (principal); G89.29 Other chronic pain; R10.9 Unspecified abdominal pain; E11.40 Type 2 diabetes mellitus with diabetic neuropathy, unspecified; K21.9 Gastro-esophageal reflux disease without esophagitis; Z90.49 Acquired absence of other specified parts of digestive tract; Z79.899 Other long term (current) drug therapy; Z79.4 Long term (current) use of insulin

== ENCOUNTER 2020-03-29 17:26 | Inpatient (IN) | payer OTHER ==
[~2020-03-29] VITALS: Ht 170.2 cm; Wt 57.6 kg
--- NOTE | ~2020-03-29 | O ---
[facility] [place] [address] OPERATIVE REPORT Name: SYDNEY STEINBERG Room #: 446-P ADM IN M.R.#: [id number] Admission: 03/29/20 Attend Phys: Maite Peres MD Discharge: Date of : 55 Report #: [id number] THIS REPORT FOR: cc: Luis F Bower,Aneesh Astudillo MD ~ CC: Luis F Peres DATE OF SERVICE: 03/30/2020 PREOPERATIVE DIAGNOSIS: Right distal third extraarticular femur fracture. POSTOPERATIVE DIAGNOSIS: Right distal third extraarticular femur fracture. PROCEDURE: ORIF right distal femur fracture. SURGEON: Aneesh Ramon MD. RIM TURNING FINISHER: Aide Cardenas PA-C. INDICATIONS FOR RIM TURNING FINISHER: Throughout the case, extensive retraction and manipulation of the right leg and knee was required. This was afforded to me by my occupational therapist assistant. ANESTHESIA: LMA. IMPLANTS: Herrmann and Nephew 6-hole lateral distal femoral locking plate with 4 proximal locking screws and 5 distal locking screws. TOURNIQUET TIME: 38 minutes. ESTIMATED BLOOD LOSS: 25 mL. COMPLICATIONS: None. SPECIMENS: None. CONDITION UPON LEAVING THE OPERATING ROOM: Stable. INDICATIONS FOR PROCEDURE: The patient is a 64-year-old female who fell and sustained a right distal third extraarticular femur fracture. She previously has had a short nail placed for a right intertrochanteric hip fracture, so this fracture was not amenable to an intramedullary nailing. After discussion with her, she elected for ORIF. [facility] [address] [place] [address] OPERATIVE REPORT Name: SYDNEY STEINBERG Room #: 446-P ADM IN M.R.#: [id number] Admission: 03/29/20 Attend Phys: Maite Peres MD Discharge: Date of : 55 Report #: [id number] DESCRIPTION OF PROCEDURE: Risks, benefits, alternatives, complications were discussed in detail with the patient including but not limited to risk of anesthesia, risk of damage to nerves, arteries, blood vessels, risk for infection, bleeding, risk for malunion, nonunion, need for reoperation. Informed consent was obtained from the patient. The right leg was appropriately marked in the preoperative holding area. IV Ancef was given for preoperative antibiotics. She was brought to the operating room and placed in supine position on operating room table. LMA anesthesia was induced without complication. Tourniquet was placed on the right thigh. Right lower extremity was prepped and draped in normal sterile fashion. Timeout was performed properly identifying the patient and procedure as well as the instrumentation and implants. All in the operating room were in agreement. Right lower extremity was exsanguinated, tourniquet was inflated. Tourniquet time was 38 minutes. A lateral incision made over the distal thigh was made with 10 blade through the skin. Dissection was taken down sharply to the fat to the IT band. IT band was split longitudinally with a fresh #10 blade and further dissection was taken down over the distal femur. A 6-hole Herrmann and Nephew distal lateral femoral locking plate was then selected and placed under fluoroscopic imaging and found to have adequate length to get above and below the fracture. This was placed on the outrigger and slid submuscularly and it was fixed distally with 1 locking screw and verified to be in good position under AP and lateral images. Fracture was held reduced by my physician occupational therapist assistant and 1 proximal locking screw was placed in the 6-hole using the outrigger. Fluoroscopic imaging was brought in to verify adequate fracture reduction and placement of hardware. Three additional locking screws were placed proximal to the fracture site and 4 additional locking screws were placed distal to the fracture site. These were all verified to be of adequate length under fluoroscopic imaging. The outrigger was removed. Final fluoroscopic images were then taken to verify adequate fracture reduction and placement of hardware. The tourniquet was deflated. Hemostasis was obtained with Bovie cautery. Wound was thoroughly irrigated with normal saline. The IT band was closed with 0 Vicryl, skin was closed with 2-0 Vicryl, skin staple and a soft dressing was applied. The patient tolerated this procedure well and went to the recovery room under care of anesthesia postoperatively. By: 1539 [id number] Aneesh Ramon MD /kaiser
--- NOTE | ~2020-03-29 | EMS ---
[address] [address] EMS Patient Care Report Name: SYDNEY STEINBERG Room #: REG JORY Mullen#: [id number] Admission: 03/29/20 Attend Phys: Discharge: Date of : 55 Report #: [id number] THIS REPORT FOR: //name// Report Transmitted: 03/29/2020 16:55 EMS Care Summary [facility] MED-ACT Incident [id number] @ 03/29/2020 16:53 Incident Location [address] [place] [address] [place] [address] Patient SYDNEY STEINBERG Female, 64 Years 1955 Patient Address [address] [place] [address] Patient History Diabetes,Hypertension (HTN),Seizures, Patient Allergies No known allergies, Patient Medications Lant, Novolog, Chief Complaint knee pain Disposition Transported No Lights/[place] [facility] Reason Falls Transported To [facility] Narrative Dispatched to the above address for a reported fall. Arrived on scene to find pt. sitting upright in a chair on the front porch, alert and tracking, attended to by FD. Pt. reports tripping and falling when she was walking down the front porch stairs, landing on her rear but with her leg getting caught underneath [address] [address] EMS Patient Care Report Name: SYDNEY STEINBERG Room #: REG JORY Mullen#: [id number] Admission: 03/29/20 Attend Phys: Discharge: Date of : 55 Report #: [id number]. Family stated that the pt. has frequent falls due to weakness related to uncontrolled Type 2 diabetes. Pt. denied CP, palpitations and dizziness as cause of fall; denied loss of consciousness and denied hitting her head. Pt. stated she remembered the entire incident and it was merely due to "tripping." Measured VS, bG, lifted pt. to cot, secured with straps x 3, moved cot to ambulance without incident, gained IV access and administered pain medication as charted. Pt. reported a decrease in pain level after fentanyl. Biocom to ED, bedside report and transfer of care to ED staff at [facility]. Initial Vitals @17:18P: 73,BP: 168/89,SpO2: 92, @17:13P: 70,BP: 195/100,SpO2: 96, @17:08P: 80,R: 14,BP: 144/86,Pain: 8/10,GCS: 14,Glucose: 306,SpO2: 97,Revised Trauma: 12, Assessments @17:04MENTAL:Person Oriented,Time Oriented,Place Oriented,Event Oriented,SKIN:HEENT:Head/Face: No Abnormalities,Eyes: No Abnormalities,LUNG SOUNDS:ABDOMEN:PELVIS//GI:EXTREMITIES:Right Leg: Other,Right Leg: Edema,Left Arm: No Abnormalities,Right Arm: No Abnormalities,Left Leg: No Abnormalities,PULSE:NEURO: Impression Injury of Lower Leg Procedures @17:10Saline Lock 5cc (20 ga) Site: Antecubital-LeftResponse: UnchangedSucceeded@17:12Fentanyl - 50 Micrograms (mcg) - Intravenous (IV)Response: Improved Timeline 16:51,Call Received 16:51,Psap Call 16:53,Dispatched 16:54,En Route 17:01,On Scene 17:02,At Patient 17:08,BP: 144/86 M,PULSE: 80,RR: 14 R,SPO2: 97 Ox,ETCO2: ,B,PAIN: 8,GCS: 14, 17:10,Saline Lock 5cc 20 ga Site: Antecubital-Left,Response: UnchangedSucceeded, 17:12,Fentanyl - 50 Micrograms (mcg) - Intravenous (IV),Response: Improved 17:13,BP: 195/100 M,PULSE: 70,RR: R,SPO2: 96 Ox,ETCO2: ,BG: ,PAIN: ,GCS: , 17:13,Depart Scene 17:18,BP: 168/89 M,PULSE: 73,RR: R,SPO2: 92 Ox,ETCO2: ,BG: ,PAIN: ,GCS: , [address] [address] EMS Patient Care Report Name: FAUSTINAZASYDNEY Room #: JENNIFER Mullen#: [id number] Admission: 03/29/20 Attend Phys: Discharge: Date of : 55 Report #: [id number] 17:19,At Destination 17:39,Call Closed Disclaimer v1.1 Copyright 2020 [employer] This EMS Care Summary contains data elements from the applicable legal record (which may be displayed differently). It is designed to provide pertinent information for the following purposes: continuity of care, clinical quality, and state data reporting. The complete legal record is available to ED staff and administrators of the receiving hospital in [employer]'s Patient Tracker. All data is provided "as is."
[2020-03-29 17:26] VITALS: BP 169/95
[2020-03-29] MEDS ORDERED: TRAZODONE 150150 M1 PO (18:07)
[2020-03-29] MEDS ORDERED: LANTUS SOL100 UNIT/1 SUBQ (18:08)
[2020-03-29] MEDS ORDERED: TRAZODONE HCL50 MG PO (18:09)
[2020-03-29 18:11] LABS: CALCIUM 8.8 mg/dL (8.5-10.1); CREATININE 0.9 mg/dL (0.6-1.0); HEMATOCRIT 28.6 % (37.0-47.0); HEMOGLOBIN 9.3 gm/dL (12.0-15.0); MCH 28.1 pg (26.0-34.0); MCHC 32.4 g/dL (28.0-37.0); MCV 86.8 fL (80.0-100.0); PLATELET COUNT 362 thou/uL (150-400); POTASSIUM 5.1 mmol/L (3.5-5.1); RDW 17.8 % (10.5-14.5); WBC 5.4 thou/uL (4.0-11.0)
[2020-03-29 18:17] LABS: PROTIME 10.5 Seconds (9.3-11.4)
[2020-03-29 18:39] LABS: ABSOLUTE NEUTROPHILS 3.6 thou/uL (1.4-8.2); ANISOCYTOSIS 1+; PLATELET ESTIMATE NORMAL
[2020-03-29 19:51] VITALS: BP 169/95
[2020-03-29 19:55] VITALS: BP 137/92
[2020-03-29 23:28] LABS: MAGNESIUM 1.8 mg/dL (1.8-2.4); PHOSPHORUS 3.2 mg/dL (2.5-4.9)
[2020-03-29] MEDS ORDERED: DRIZALMA SPRINK30 MG PO (23:29)
[2020-03-30 04:15] VITALS: BP 130/84
[2020-03-30 04:40] LABS: ALBUMIN 2.2 g/dL (3.4-5.0); CALCIUM 8.6 mg/dL (8.5-10.1); CREATININE 0.9 mg/dL (0.6-1.0); MAGNESIUM 1.7 mg/dL (1.8-2.4); PHOSPHORUS 3.1 mg/dL (2.5-4.9); POTASSIUM 4.4 mmol/L (3.5-5.1); TOTAL BILIRUBIN 0.2 mg/dL (<0.1-1.0); TOTAL PROTEIN 6.3 g/dL (6.4-8.2)
[2020-03-30 04:41] LABS: ABSOLUTE NEUTROPHILS 4.4 thou/uL (1.4-8.2); BASOPHILS 0.4 % (0.0-2.0); EOSINOPHILS 2.4 % (0.0-3.0); HEMATOCRIT 26.4 % (37.0-47.0); HEMOGLOBIN 8.5 gm/dL (12.0-15.0); LYMPHOCYTES 22.6 % (24.0-44.0); MCHC 32.2 g/dL (28.0-37.0); MCV 86.9 fL (80.0-100.0); MONOCYTES 9.7 % (1.0-8.0); PLATELET COUNT 345 thou/uL (150-400); POLYS 64.9 % (36.0-66.0); RBC 3.04 mil/uL (4.20-5.00); RDW 17.7 % (10.5-14.5); WBC 6.8 thou/uL (4.0-11.0)
[2020-03-30 07:55] VITALS: BP 90/51
--- NOTE | 2020-03-30 08:10 | NUR ---
PT AOX4. PT LEGALLY BLIND IN LEFT EYE WITH DECREASING VISION IN RIGHT EYE. PT REPORTING PAIN 7/10 IN RIGHT KNEE. PT RECEIVING PRN IV MORPHINE Q3HR. PT ASSESSED WITH BLOOD GLUCOSE OF 294, DIRECTOR AUDIENCE MARKETING PROVIDER NOTIFIED, RECEIVED ORDERS FOR ONETIME ORDER OF 6UNITS OF INSULIN LISPRO. PT NOTED TO BE ABLE TO SHIFT IN BED INDEPENDENTLY. RLE ELEVATED WITH WEDGE PILLOW. PT REPORTING INCREASE IN PAIN OF 10/10, NOTIFIED DIRECTOR AUDIENCE MARKETING PROVIDER PER EMAR ORDER, EMAR UPDATED. PT CONTINUES TO REST IN BED. PT ENCOURAGED TO NOTIFY STAFF FOR ALL NEEDS. CALL LIGHT WITHIN REACH, BED IN LOWEST POSITION, BED ALARM ON. WILL CONTINUE TO MONITOR.
--- NOTE | 2020-03-30 15:37 | NUR ---
PT ADMITTED RELATED TO RIGHT FEMUR FRACTURE. CM REVIEWED CHART AND SPOKE WITH CARE TEAM. CM ATTEMPTED PC TO PT THIS AM AND AFTER SURGERY THIS AFTERNOON WITH NO ANSWER. CM CALLED AND SPOKE WITH PT'S SPOUSE DEANNE. HE INDICATED THAT PT HAD BEEN LIVING IN HOUSE WITH HIM WITH STAIRGLIDE TO ENTER AND NO STEPS SHE NAVIGATES INSIDE. HE INDICATED THAT PT HAD BEEN HOME FROM [facility] FOR SIX WEEKS AND HAD BEEN ON SERVICE WITH [employer]. HE INDICATED THAT PT HAD A WC AND A NUMBER OF FWW FOR USE AT HOME. PT IS LEGALY BLIND AND HAD BEEDED SET UP ASSIST WITH MEDS, ADLS, AND MEAL PREP. PRIOR TO HER MOST RECENT HOSPITALIZATION AND SKILLED STAY AT [place] SINCE DECEMBER PT HAD HCBS 5 DAYS A WEEK FROM 2PM-7PM THROUGH [place], BUT SPOUSE INDICATED THOSE HADN'T BEEN REINSTATED SINCE PT'S MOST RECENT RETURN HOME. PT HAD ORIF THIS DAY. CM TO FOLLOW INDICATED WITH DC PLANNING.
[2020-03-30 16:16] LABS: HEMATOCRIT 27.4 % (37.0-47.0); HEMOGLOBIN 8.9 gm/dL (12.0-15.0); MCH 28.2 pg (26.0-34.0); MCHC 32.4 g/dL (28.0-37.0); MCV 86.8 fL (80.0-100.0); RBC 3.15 mil/uL (4.20-5.00); RDW 17.5 % (10.5-14.5); WBC 5.6 thou/uL (4.0-11.0)
--- NOTE | 2020-03-30 18:30 | NUR ---
PT ASSESSED AT START OF SHIFT. PT NPO FOR OR THIS AFTERNOON. IV BOLUS OF 250MLS GIVEN PER ORDER IN ADDITION TO 50MLS PER HR SCHEDULED. PT RETURNED AT 1615 FROM REC RM. NO VOID ALL SHIFT. PT STATING SHE DOESN'T FEEL LIKE SHE HAS TO VOID. EX FEMALE CATH APPLIED POST OP. BLADDER SCAN DONE SHOWING >425. WILL CALL TO INQUIRE RE POSSIBLE STR CATH ORDER.
[2020-03-30 19:36] VITALS: BP 107/67
[2020-03-30 23:56] LABS: HEMATOCRIT 25.4 % (37.0-47.0); HEMOGLOBIN 8.3 gm/dL (12.0-15.0)
[2020-03-31 00:07] LABS: GLYCOHEMOGLOBIN (HGB A1C) 8.8 % (4.8-5.6)
[2020-03-31 04:36] VITALS: BP 109/56
--- NOTE | 2020-03-31 04:40 | NUR ---
ASSUMED PT CARE AT 1900. PT REQUESTING MORPHINE AT START OF SHIFT, EFFECTIVE AT TAKING THE EDGE OFF. R DRESSING D/C/I. PT WAS UNABLE TO VOID POST OP, BLADDER SCAN RELFECTED GREATER THAN 540ML, CRATE REPAIRER CALLED AND GAVE ORDERS FOR HULL CATHETER DUE TO IMMOBILIZATION AT THIS TIME. PT TOLERATED HULL WELL AND IT HAVE GOOD OUTPUT. PT HAS PERIODS OF CONFUSION - FREQ SAYING SHE NEEDS TO GET UP TO MAKE COFFEE IN THE KITCHEN AND HAS TO BE REMINDED OF THE SITUATION. FALL PRECAUTIONS IN PLACE. FLUIDS AND ANTIBIOTICS INFUSING PER ORDER. IN AND OUT OF SLEEP TONIGHT, WILL CONTINUE TO MONITOR.
[2020-03-31 05:18] LABS: HEMATOCRIT 23.4 % (37.0-47.0); HEMOGLOBIN 7.6 gm/dL (12.0-15.0); MCH 28.4 pg (26.0-34.0); MCHC 32.5 g/dL (28.0-37.0); MCV 87.4 fL (80.0-100.0); RBC 2.68 mil/uL (4.20-5.00); RDW 17.7 % (10.5-14.5); WBC 5.7 thou/uL (4.0-11.0)
[2020-03-31 08:00] VITALS: BP 124/75
--- NOTE | 2020-03-31 12:11 | NUR ---
ON-GOING ASSESSMENT: CM REVIEWED CHART AND SPOKE WITH ATTENDING WELL PATIENT. PT/OT IS WORKING WITH PATIENT AND RECOMMENDING POST ACUTE CARE STAY. PT HAS RECENTLY BEEN TO [place] ABOUT 6 WEEKS AGO AND WAS CURRENTLY IN SERVICES WITH [facility] AT HOME. SHE REPORTS THAT SHE DOES NOT WANT TO GO BACK TO SNF AND WANTS TO RETURN HOME WITH . ORTHO IS AWARE WELL ATTENDING. PT REPORTS SHE HAS A WHEELCHAIR AT HOME AND A WALKER. PLANS ARE FOR PATIENT TO CONTINUE TO WORK WITH PT/OT AND POSSIBLY RETURN HOME TOMORROW WITH [facility]. CM CONTACTED [facility] AND NOTIFIED THEM OF PATIENTS ADMISSION WITH POSSIBLE DISCHARGE TOMORROW. CM FAXED CLINICAL TO [facility]. CM ATTEMPTED ATTEMPTED TO REACH PATIENTS BUT LEFT A VM. CM WILL CONTINUE TO FOLLOW TO ASSIST NEEDED.
[2020-03-31 15:35] VITALS: BP 101/56
--- NOTE | 2020-03-31 17:43 | NUR ---
ASSUMED CARE OF THE PT AT 0700. PT IS UP WITH MAX ASSIST TO CHAIR. R FEMUR IS NON WEIGHT BEARING. PT IS A&O X 3, VERY CONFUSED AND FORGETFUL. BS CONTROLLED WITH INSULIN, SEE EMAR. PTS HGB IS 7.6. HULL DRY AND INTACT. PAIN CONTROLLED BY PAIN MEDS, SEE EMAR. PT REFUSED ICE PACKS. SCD'S ON L LEG. CALLED 3X AND WENT TO , CALLED AGAIN WITH THE PT AND LEFT . FALL PRECAUTIONS IN PLACE, BED IN THE LOWEST POSITION AND CALL LIGHT IS WITHIN REACH. WILL CONTINUE TO MONITOR THE PT. PT TURNS SELF.
[2020-03-31 20:28] VITALS: BP 114/61
[2020-04-01] VITALS (8 sets, daily range): BP systolic 83–180; BP diastolic 42–82
--- NOTE | 2020-04-01 02:55 | NUR ---
ASSUMED PT CARE AT 1900. PT HAS TO BE FREQ REMINDED THAT SHE IS NOT AT HOME. PM MEDS GIVEN, PT REQUESTED 6 UNITS OF INSULIN INSTEAD OF 8 TONIGHT. DRESSING D/C/I. FLUIDS INFUSING PER ORDER. NO SIGNIFICANT CHANGES OF NOW, PT IS RESTING IN BED WITH EYES CLOSED.
[2020-04-01 05:41] LABS: HEMATOCRIT 22.5 % (37.0-47.0); HEMOGLOBIN 7.3 gm/dL (12.0-15.0); MCH 28.1 pg (26.0-34.0); MCHC 32.3 g/dL (28.0-37.0); MCV 86.8 fL (80.0-100.0); RBC 2.59 mil/uL (4.20-5.00); RDW 17.5 % (10.5-14.5); WBC 7.8 thou/uL (4.0-11.0)
--- NOTE | 2020-04-01 13:17 | NUR ---
ASSUMED CARE OF THE PT AT 0700. PT IS NON WEIGHT BEARING ON R LEG PER DOCTOR. PAIN CONTROLLED BY PAIN MEDS, SEE EMAR. BLOOD TRANSFUSED AND IV INFITRATED/ REMOVED. BS CONTROLLED BY INSULIN, SEE EMAR. CELE HOSE AND SCD'S IN PLACE, PT REFUSED ICE PACK. INCISION IS DRY AND INTACT. PT IS STILL VERY FORGETFUL AND CONFUSED, HAS TO BE REMINDED CONSTANTLY OF WHAT HAS HAPPENED AND WHATS TO COME. FALL PRECAUTIONS IN PLACE, BED IN THE LOWEST POSITION, CHAIR ALARM ON, CALL LIGHT IS WITHIN REACH. WILL CONTINUE TO MONITOR THE PT.
--- NOTE | 2020-04-01 14:56 | NUR ---
CARE TEAM RECOMMENDING POST ACUTE CARE STAY UPON DC. CM SPOKE WITH PT AND HER SPOUSE AND THEY WOULD LIKE REERRALS SENT TO [facility] FOR REVIEW FOR POSSIBLE ADMISSION. CM TO FOLLOW INDICATED WITH DC PLANNING.
[2020-04-01 16:16] LABS: HEMATOCRIT 26.4 % (37.0-47.0); HEMOGLOBIN 8.7 gm/dL (12.0-15.0)
--- NOTE | 2020-04-01 16:33 | NUR ---
FAXED REFERRAL TO [facility] SPOKE WITH TONI IN ADM SHE RECEIVED REFERRAL AND WILL REVIEW. FAXED REFERRAL TO [facility] SPOKE WITH MAURILIO IN ADM SHE RECEIVED REFERRAL AND WILL REVIEW. DP TO FOLLOW.
--- NOTE | 2020-04-02 00:35 | NUR ---
04/01/201899 ASSUMED CARE OF PT AFTER BEDSIDE REPORT. 1999 BASELINE ASSESSMENT COMPLETED, PT RESTING IN BED WITH NO COMPLAINTS OF PAIN OR DISCOMFORT, PLEASANTLY CONFUSED WITH MOMENTS OF CLARITY, COOPERATIVE, NWB TO RLE, SCD TO LLE, POSITION CHANGED FOR COMFORT, PEDAL PULSES PALPABLE AND PT IS STATING SHE IS READY TO GO TO SLEEP, FALL PRECAUTIONS IN PLACE, WILL CONTINUE TO MONITOR.
[2020-04-02 04:50] VITALS: BP 129/67
[2020-04-02 04:56] LABS: HEMATOCRIT 25.6 % (37.0-47.0); HEMOGLOBIN 8.5 gm/dL (12.0-15.0); MCH 28.6 pg (26.0-34.0); MCHC 33.2 g/dL (28.0-37.0); MCV 86.3 fL (80.0-100.0); RBC 2.97 mil/uL (4.20-5.00); RDW 18.1 % (10.5-14.5); WBC 6.6 thou/uL (4.0-11.0)
[2020-04-02 07:21] VITALS: BP 138/75
[2020-04-02] MEDS ORDERED: HYDROCODON-ACE1 EAC7 PO (08:31)
[2020-04-02] MEDS ORDERED: ASPIR 8181 MG PO (08:31)
[2020-04-02] MEDS ORDERED: LANTUS SOL100 UNIT/1 SUBQ (08:32)
--- NOTE | 2020-04-02 15:17 | NUR ---
CM FOLLOWED UP WITH ADMISSIONS AT [facility] AND THEY INDICATED THAT THEY COULD ACCEPT PT AND THAT THY HAD AUTH. ADMISSION WAS GOING TO REACH OUT TO PT'S SPOUSE. THEY INDICATED THAT PT WOULD BE ISOLATED FOR 14 DAYS UPON ADMISSION AND THEY WERE GOING TO NOTIFY PT'S SPOUSE OF THIS. FACILITY INDICATED THAT THEY COULDN'T ACCEPT PT UNTIL TOMORROW B/C THEIR HOUSE KEEPER LEFT AT 1500. CM NOTIFIED PHYSICAIN. CM TO FACILITATE DC TO [facility] TOMORROW AM. CHART COPY MADE.
[2020-04-02 16:15] VITALS: BP 143/72
[2020-04-02 19:25] VITALS: BP 128/79
[2020-04-03 04:50] VITALS: BP 138/80
--- NOTE | 2020-04-03 05:26 | NUR ---
ASSUMED PT CARE AT 1900. PT C/O NAUSEA AND ABD PAIN. BLADDER WAS DISTENDED UPON EXAMINATION. BLADDER SCAN REFLECTED GREATER THAN 612ML. MAKEUP ARTIST CALLED AND ORDERS WERE GIVEN TO STRAIGHT CATH ONE TIME. 625ML OF URINE WAS REMOVED. PT IS HAVING TROUBLE VOIDING STILL. SMALL BM TONGIHT. IV INFILTRATED, MAKEUP ARTIST WAS CALLED AND SAID IT WAS OK TO LEAVE OUT DUE TO PT LEAVING THIS AM. PM MEDS GIVEN. SLEPT ON AND OFF.
[2020-04-03 07:17] VITALS: BP 136/71
[2020-04-03 08:19] VITALS: BP 136/71
--- NOTE | 2020-04-03 10:20 | NUR ---
ON-GOING ASSESSMENT: CM REVIEWED CHART AND SPOKE WITH ATTENDING. PT WAS TO DISCHARGE YESTERDAY BUT ACCRODING TO NOTE FACILITY WAS UNABLE TO ACCEPT UNTIL TODAY. CM REACHED OUT TO ADMISSIONS AT [facility] TO ARRANGE DISCHARGE AND THEY REPORT THAT THEY STILL NEED COVID RESULTS FAXED TO THEM WELL PT/OT. CM FAXED THERAPY EVALS TO ADMISSIONS. CM THEM SPOKE WITH ADMISSIONS WHO VERIFIED THAT THEY CAN ACCEPT PT AND THEY SUBMITTED THE INFO TO [facility] AND HAVE APPROVAL TO ACCEPT PATIENT. SHE STATES THEY DO NOT HAVE TRANSPORTATION AND CM WILL HAVE TO ARRANGE THIS. CM ARRANGED TRANSPORTATION THROUGH [facility]: [phone] FOR 11-1130 AM PICKUP. CM NOTIFIED ATTENDING, PATIENT, PATIENTS , WELL BEDSIDE RN. CHART COPY WAS ORDERED AND CM SPOKE WITH TELEVISION NEWS VIDEO EDITOR. CM FAXED D/C PAPERWORK TO [facility]. CM NOTIFIED PT AND OF PICKUP TIME.
--- NOTE | 2020-04-03 11:51 | NUR ---
PT A&OX4. PT HAD RETENTION OF ALMOST 600ML. ORDER TO PLACE HULL CATH AND SEND WITH PT. PT ALSO C/O CONSTIPATION, MIRLAX GIVEN AND SOFT SMALL BM'S. DRSG TO R FEMUR C/D/I. IV REMOVED ACCIDENTLY LAST NOC. REPORT CALLED TO [facility] AND GAVE REPORT TO BOB. W/C JASON ESCORTED PT TO FACILITY.
== END 2020-04-03 12:09 | DRG 480 ==
LOC: ER 17:26 → EROBS 18:40 → 4S 18:40
PROVIDERS: Hospitalist; Nurse Practitioner Family; Orthopaedic Surgery; ADMIT Internal Medicine
PROC: 0QSB04Z Reposition Right Lower Femur with Internal Fixation Device, Open Approach (ICD-10-PCS; principal; 2020-03-30)
PROC: 30233N1 Transfusion of Nonautologous Red Blood Cells into Peripheral Vein, Percutaneous Approach (ICD-10-PCS; 2020-04-01)
DX: S72.401A Unspecified fracture of lower end of right femur, initial encounter for closed fracture (principal); E43 Unspecified severe protein-calorie malnutrition; D62 Acute posthemorrhagic anemia; Z68.1 Body mass index [BMI] 19.9 or less, adult; H54.7 Unspecified visual loss; E11.42 Type 2 diabetes mellitus with diabetic polyneuropathy; K21.9 Gastro-esophageal reflux disease without esophagitis; Z20.828 Contact with and (suspected) exposure to other viral communicable diseases; F32.9 Major depressive disorder, single episode, unspecified; R62.7 Adult failure to thrive; Z90.81 Acquired absence of spleen; Z90.49 Acquired absence of other specified parts of digestive tract; Z93.1 Gastrostomy status; Z79.4 Long term (current) use of insulin; Z98.42 Cataract extraction status, left eye; Z98.41 Cataract extraction status, right eye; Z86.14 Personal history of Methicillin resistant Staphylococcus aureus infection; Z82.49 Family history of ischemic heart disease and other diseases of the circulatory system; Z81.8 Family history of other mental and behavioral disorders; W18.39XA Other fall on same level, initial encounter; Y93.89 Activity, other specified; Y92.89 Other specified places as the place of occurrence of the external cause; Y99.8 Other external cause status
CPT/HCPCS: 10195; 50010; 50101; 50386; 50417; 51412; 56528; 57103; 57180; 57955; 57956; 57957; 57958; 57959; 57960; 57961; 57962; 57963; 62110; 62900; 70005

== ENCOUNTER → 2020-05-22 | Outpatient (CLI) | payer OTHER ==
[~2020-05-22] MED LIST changes: +ASPIR 8181 MG PO; +DRIZALMA SPRINK30 MG PO; +LANTUS SOL100 UNIT/1 SUBQ; +TRAZODONE 150150 M1 PO
== END ==
LOC: NUC 09:14
PROVIDERS: ATTEND Orthopaedic Surgery Foot and Ankle Surgery
DX: N91.2 Amenorrhea, unspecified (principal); Z78.0 Asymptomatic menopausal state

== ENCOUNTER → 2020-07-16 | Outpatient (CLI) | payer OTHER ==
--- NOTE | 2020-07-30 10:39 | EEG ---
[facility] [address] [place] [address] ELECTROENCEPHALOGRAM Name: SYDNEY STEINBERG Room #: REG CRISTI Paz#: [id number] Admission: 07/16/20 Attend Phys: Cyndy Mendoza DO Discharge: Date of : 55 Report #: [id number] THIS REPORT FOR: //name// CC: Luis F Mendoza DATE OF SERVICE: 07/16/2020 This patient is being evaluated for the possibility of seizure. EEG was done by placing the electrode by standard 10-20 system of electrode placement. Both referential and sequential montages were used for recording. Background activity in this patient's EEG is somewhat slow. It is about 8 Hz and 30 microvolt. It is intermixed with theta range slowing. The patient became drowsy and thus went to sleep that is associated with even more slowing and vertex sharp waves. Photic stimulation is unremarkable. No active epileptiform activity was noticed during this record. IMPRESSION: This patient's EEG is somewhat slow on both sides. That is a nonspecific finding, which can occur with drowsiness, encephalopathy, and effect of psychotropic medication. It is a nonspecific finding. No active epileptiform activity was noticed. Thank you very much for this referral. <ELECTRONICALLY SIGNED> By: Gary Allison MD 07/30/20 1039 1516 1523 Gary Allison MD /nt
== END ==
LOC: CV 09:41
PROVIDERS: ATTEND Psychiatry & Neurology Neurology
DX: G40.009 Localization-related (focal) (partial) idiopathic epilepsy and epileptic syndromes with seizures of localized onset, not intractable, without status epilepticus (principal)

== ENCOUNTER → 2020-11-04 | Outpatient (CLI) | payer OTHER ==
[~2020-11-04] MED LIST changes: +NEURONTIN300 MG PO
[2020-11-04 09:45] VITALS: BP 149/83
[2020-11-04 11:05] VITALS: BP 214/106
[2020-11-04 11:40] VITALS: BP 200/104
[2020-11-04 11:50] VITALS: BP 184/87
--- NOTE | 2020-11-04 17:28 | NUR ---
ARRIVED PER WHEELCHAIR WITH . HERE FOR FIRST OF TWO INJECTAFER INFUSIONS. PATIENT IS A FALL RISK. TRANSFERED TO CHAIR. BP ON ARRIVAL AT OUTPATIENT CLINIC 149/83. INFUSION COMPLETED ORDERED. POST INFUSION BP 214/106. PATIENT HELPED TO THE BATHROOM. BP 200/104. CALL WAS PLACED TO LOIS BANKS . SPOKE WITH LOIS WHO STATED SHE WILL CALL IN [facility] PRESCRIPTION AT PATIENTS PHARMACY TODAY AND PATIENT TO PICK IT UP ON THE WAY HOME. BP AT 11:50 PRIOR TO PATIENTS DISCHARGE WAS 184/87. PULSE IN THE 80'S. PATIENT VOICED NO COMPLAINTS. INSTRUCTIONS GIVEN TO BOTH PATIENT AND REGARDING NEW BLOOD PRESSURE MEDICINE AND PATIENT TO START TODAY. VOICED UNDERSTANDING. ALSO ENCOURAGED COMPLIANCE WITH TAKING LISNOPRIL ORDERED. IV DC'D AND PATIENT DISCHARGED WITH IN WHEELCHAIR. TO RETURN IN ONE WEEK FOR NEXT INFUSION.
== END ==
LOC: OPONC 09:36
PROVIDERS: ATTEND Nurse Practitioner
DX: D50.9 Iron deficiency anemia, unspecified (principal)
CPT/HCPCS: 95000

== ENCOUNTER → 2020-11-11 | Outpatient (CLI) | payer OTHER ==
[2020-11-11 09:24] VITALS: BP 166/75
[2020-11-11 09:58] VITALS: BP 187/83
[2020-11-11 10:15] VITALS: BP 188/95
[2020-11-11 10:30] VITALS: BP 187/87
--- NOTE | 2020-11-11 10:35 | NUR ---
HERE FOR 2ND AND FINAL INJECTAFER INFUSION. REPORTS TOLERATING THE FIRST ONE WELL, NO ADVERSE EFFECTS NOTED AT HOME. DID LAUNDRY MARKER SUPERVISOR AND START ON THE NORVASC, ONE DAILY. STARTING BP TODAY 166/75. BP UP A LITTLE POST BUT DID NOT GET NEARLY HIGH LAST WEEK. FINAL BP, 30 MIN POST, 187/87. PT TOLERATED WITHOUT ANY CONCERNS. ADVISED PT TO F/U WITH DR. BRANNON OR LOIS DAVIDSON FOR LABS IN 4-6 WEEKS. DISMISSED IN STABLE CONDITION WITH HER .
== END ==
LOC: OPONC 08:59
PROVIDERS: ATTEND Nurse Practitioner
DX: D50.9 Iron deficiency anemia, unspecified (principal)
CPT/HCPCS: 95000

== ENCOUNTER → 2020-11-27 | Outpatient (CLI) | payer OTHER | LOC: MRI 08:53 | PROVIDERS: ATTEND Orthopaedic Surgery | DX: S22.080A Wedge compression fracture of T11-T12 vertebra, initial encounter for closed fracture (principal); M25.78 Osteophyte, vertebrae; M51.25 Other intervertebral disc displacement, thoracolumbar region; M51.37 Other intervertebral disc degeneration, lumbosacral region; M47.816 Spondylosis without myelopathy or radiculopathy, lumbar region; X58.XXXA Exposure to other specified factors, initial encounter; Y93.89 Activity, other specified; Y92.89 Other specified places as the place of occurrence of the external cause; Y99.8 Other external cause status ==

== ENCOUNTER 2021-02-26 11:30 | Inpatient (IN) | payer OTHER ==
[~2021-02-26] VITALS: Ht 172.7 cm; Wt 68.0 kg
--- NOTE | ~2021-02-26 | EMS ---
[facility] [address] [place] [address] EMS Patient Care Report Name: SYDNEY STEINBERG Room #: 170-1 ADM IN M.R.#: [id number] Admission: 02/26/21 Attend Phys: Gary Haq MD Discharge: Date of : 55 Report #: [id number] THIS REPORT FOR: //name// Report Transmitted: 02/26/2021 13:00 EMS Care Summary [place], [place] Incident [id number] @ 02/26/2021 10:59 Incident Location [id number] [place] [address] Patient SYDNEY STEINBERG Female, 65 Years 1955 Patient Address [id number] [place] [address] Patient History Diabetes,Hypertension (HTN), Patient Allergies No known allergies, Patient Medications Pantoprazole, Lantus, Tradjenta, Duloxetine, Gabapentin, Trazodone, Lisinopril, Chief Complaint LEGS ARE WEAK AND MY BODY IS TWITCHING Disposition Transported No Lights/[place] Dispatch Reason Sick Person Transported To [facility] Narrative REC'D CALL FOR SICK PT. ON SCENE FOUND P28 ATTENDING THE PT WHO WAS SITTING IN HER WHEELCHAIR IN THE LIVINGROOM OF HER HOME. STATED THAT HE WAS WANTING TO TAKE HER TO THE ER FOR WEAKNESS AND LOW BLOOD PRESSURE, BUT HE IS UNABLE TO MOVE HER. PT'S DR ADVISED HIM TO CALL 911. PTV ITALS ASSESSED. WAS [facility] [address] [place] [address] EMS Patient Care Report Name: SYDNEY STEINBERG Room #: 170-1 ADM IN M.R.#: [id number] Admission: 02/26/21 Attend Phys: Gary Haq MD Discharge: Date of : 55 Report #: [id number] ALERT ORIENTED AND COMPLAINED OF WEAKNESS IN LEGS AND DANIE TWITCHING. PT REQUESTED TRANSPORT TO ER, [facility]. PT WAS PLACED IN A STAIRCHAIR AND MOVED DOWN THE FRONT STEPS TO THE COT IN THE DRIVEWAY. PT LOADED IN AMBO. PT ASSESSMENT CONTINUED. PT MONITORED CONTINUOUSLY DURING TRANSPORT, PT REMAINED STABLE. PT CARE PASSED TO ER Initial Vitals @11:19P: 69,BP: 125/74,SpO2: 97, @11:23P: 65,R: 14,Pain: 0/10,GCS: 15,SpO2: 93, @11:14P: 70,R: 14,BP: 122/71,Pain: 0/10,GCS: 15,Temp: 98.1F,Glucose: 340,SpO2: 95,Revised Trauma: 12, Assessments @11:12MENTAL:No Abnormalities,SKIN:HEENT:Head/Face: No Abnormalities,Neck/Airway: No Abnormalities,LUNG SOUNDS:General: No Abnormalities,ABDOMEN:General: No Abnormalities,PELVIS//GI:No Abnormalities,EXTREMITIES:Right Arm: Other,Right Leg: Weakness,Left Leg: Weakness,Capillary Refill: Right Upper: 3 Sec,Left Arm: No Abnormalities,PULSE:Radial: 2+ Normal,NEURO:@11:27MENTAL:No Abnormalities,SKIN:No Abnormalities,HEENT:Head/Face: No Abnormalities,Eyes: No Abnormalities,Neck/Airway: No Abnormalities,LUNG SOUNDS:General: No Abnormalities,ABDOMEN:General: No Abnormalities,PELVIS//GI:No Abnormalities,EXTREMITIES:Capillary Refill: Right Upper: 3 Sec,Left Arm: No Abnormalities,Right Arm: No Abnormalities,Left Leg: No Abnormalities,Right Leg: No Abnormalities,PULSE:Radial: 2+ Normal,NEURO:No Abnormalities, Impression Generalized Weakness Procedures @11:12ALS AssessmentResponse: UnchangedSucceeded@11:15StretcherResponse: Unchanged Timeline 10:57,Call Received 10:57,Dispatch Notified 10:59,Dispatched 11:00,En Route 11:09,On Scene 11:11,At Patient 11:12,ALS Assessment,Response: UnchangedSucceeded, 11:14,BP: 122/71 M,PULSE: 70,RR: 14 R,SPO2: 95 Ox,ETCO2: ,B,PAIN: 0,GCS: 15, 11:15,Stretcher,Response: Unchanged 11:19,BP: 125/74 M,PULSE: 69,RR: R,SPO2: 97 Ox,ETCO2: ,BG: ,PAIN: ,GCS: , 11:22,Depart Scene [facility] [address] [place] [address] EMS Patient Care Report Name: SYDNEY STEINBERG Room #: 170-1 ADM IN M.R.#: [id number] Admission: 02/26/21 Attend Phys: Gary Haq MD Discharge: Date of : 55 Report #: [id number] 11:23,BP: / M,PULSE: 65,RR: 14 R,SPO2: 93 Ox,ETCO2: ,BG: ,PAIN: 0,GCS: 15, 11:28,At Destination 11:44,Call Closed Disclaimer v1.1 Copyright 2020 [employer] This EMS Care Summary contains data elements from the applicable legal record (which may be displayed differently). It is designed to provide pertinent information for the following purposes: continuity of care, clinical quality, and state data reporting. The complete legal record is available to ED staff and administrators of the receiving hospital in [employer]'s Patient Tracker. All data is provided "as is."
[2021-02-26 11:30] VITALS: BP 117/71
[2021-02-26 12:08] LABS: HEMATOCRIT 38.7 % (37.0-47.0); HEMOGLOBIN 12.5 gm/dL (12.0-15.0); MCH 30.8 pg (26.0-34.0); MCHC 32.3 g/dL (28.0-37.0); MCV 95.5 fL (80.0-100.0); RBC 4.05 mil/uL (4.20-5.00); RDW 14.5 % (10.5-14.5); WBC 10.6 thou/uL (4.0-11.0)
[2021-02-26 12:14] LABS: ANION GAP 6 mmol/L (7-16); BUN 78 mg/dL (7-18); CALCIUM 8.8 mg/dL (8.5-10.1); CHLORIDE 105 mmol/L (98-107); CO2 29 mmol/L (21-32); CREATININE 2.3 mg/dL (0.6-1.0); GLUCOSE 326 mg/dL (74-106); POTASSIUM 5.2 mmol/L (3.5-5.1); SODIUM 140 mmol/L (136-145)
[2021-02-26 12:24] LABS: ALBUMIN 2.8 g/dL (3.4-5.0); SGOT 14 U/L (15-37); SGPT 20 U/L (14-59); TOTAL BILIRUBIN 0.5 mg/dL (0.2-1.0); TOTAL PROTEIN 6.9 g/dL (6.4-8.2); TROPONIN-I <0.06 ng/mL (<0.06)
[2021-02-26 13:45] VITALS: BP 156/80
[2021-02-26 14:18] VITALS: BP 165/85
[2021-02-26] MEDS ORDERED: CYMBALTA30 MG PO (14:19)
[2021-02-26] MEDS ORDERED: NEURONTIN300 MG PO (14:19)
[2021-02-26] MEDS ORDERED: PROTONIX40 M2 PO (14:20)
[2021-02-26] MEDS ORDERED: TRADJENTA5 MG PO (14:20)
[2021-02-26] MEDS ORDERED: LISINOPRIL20 MG PO (14:21)
[2021-02-26] MEDS ORDERED: TRAZODONE HCL50 MG PO (14:22)
[2021-02-26] MEDS ORDERED: LANTUS SUBQ (14:22)
[2021-02-26 14:56] LABS: FOLIC ACID 6.3 ng/mL (8.6-58.9)
--- NOTE | 2021-02-26 16:27 | NUR ---
pt arrived to floor from emergency room per cart around 1500 in stable condition.Admission hx ,assessment and care plan completed.Pt home meds inventory and sent to pharmacy.Pt in bed resting and watching tv at present without c/o.Will continue to monitor.
--- NOTE | 2021-02-26 16:56 | EKG ---
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 02/26/21 1655 1213 1213 Yung Rizvi MD, [facility] /EPI
[2021-02-26 21:00] VITALS: BP 134/76
--- NOTE | 2021-02-27 02:52 | NUR ---
PT CARE ASSUMED WITH PT IN BED WATCHING TV AT 1900.PT IS A/O X4.PT IS UP WITH ASSIST AND PT USES A W/C AT HOME.PT USED A BEDPAN DURING SHIFT.PT IS ACCUCHECK ACHS WITH SSI.PT DENIED PAIN,N/V .PT APPEARED TO BE IN NO ACUTE DISTRESS.IV ACCESS ON LT AC WITH NS AT 100CC/HR.PT IS ON ROOM AIR.WILL CONTINUE TO MONITOR POC
[2021-02-27 04:32] LABS: ABSOLUTE NEUTROPHILS 4.8 thou/uL (1.4-8.2); BASOPHILS 0.6 % (0.0-2.0); EOSINOPHILS 4.7 % (0.0-3.0); HEMATOCRIT 36.1 % (37.0-47.0); HEMOGLOBIN 11.9 gm/dL (12.0-15.0); LYMPHOCYTES 20.7 % (24.0-44.0); MCH 30.9 pg (26.0-34.0); MCHC 32.9 g/dL (28.0-37.0); MCV 93.9 fL (80.0-100.0); MONOCYTES 5.3 % (1.0-8.0); PLATELET COUNT 265 thou/uL (150-400); POLYS 68.7 % (36.0-66.0); RBC 3.84 mil/uL (4.20-5.00); RDW 14.5 % (10.5-14.5); WBC 6.9 thou/uL (4.0-11.0)
[2021-02-27 04:35] LABS: CALCIUM 8.1 mg/dL (8.5-10.1); CREATININE 1.5 mg/dL (0.6-1.0); MAGNESIUM 2.1 mg/dL (1.8-2.4); POTASSIUM 5.2 mmol/L (3.5-5.1)
[2021-02-27 08:06] VITALS: BP 178/77
[2021-02-27 16:53] VITALS: BP 167/90
--- NOTE | 2021-02-27 19:07 | NUR ---
Assumed pt care this am, VS stable. Blood sugar monitored medication given as per emar. IV went bad in the am, IV team was able to insert but still went bad this pm. Diet and medications are tolerated well. Alert and oriented to self and situation, but not fully comprehending the need for nutrition as mentioned by the . Pt believes she does not have to eat and would only drink soda and take minimal amounts of food for the fear of getting fat. Educated the pt regarding nutritional intake. WAs able to work with PT, stayed on the recliner for the afternoon, uses the commode x 1 assists with a gait belt. POC followed with no signs or verbalizations of distress noted.
[2021-02-27 19:09] VITALS: BP 172/86
--- NOTE | 2021-02-28 02:32 | NUR ---
PT CARE ASSUMED WITH PT IN BED WATCHING TV.PT IS A/O X3 AND SOMETIMES CONFUSE .PT IS UP WITH X1 ASSIST TO BSC AND USES A W/C AT HOME. AND FURNITURE.PT IS ON ROOM AIR.PT IV ACCESS INFILTRATED AND WAS PUT IN BY IV TEAM WITH ULTRASOUND GUIDING.PT IS ON TELE NSR.PT IS ACCUCHECK AFTER MEALS WITH SSI.WILL CONTINUE TO MONITOR
[2021-02-28 08:35] VITALS: BP 147/71
[2021-02-28 16:35] VITALS: BP 142/88
[2021-02-28 20:13] VITALS: BP 153/71
--- NOTE | 2021-02-28 20:14 | NUR ---
Assumed pt care this am, VS stable. IV restarted by IV team. FAmily was at the bed side in the pm. POC followed with signs or verbalizations of distress noted. Endorsed to the night nurse.
--- NOTE | 2021-03-01 06:05 | NUR ---
ASSUMED CARE OF PT AT SHIFT. PT AOX3 AND LETS NEEDS BE KNOWN. FALL PRECAUTION IN PLACE. PT DENIED PAIN, NAUSEA OR SOA. ASSESSMENT CHARTED. PT RAN SR ON TELE. PT WAS ABLE TO GET COMFORTABLE AND SLEEP PART OF THE SHIFT. VSS AND NO S/S OF ACUTE DISTRESS. WILL CONTINUE TO MONITOR.
[2021-03-01 06:07] LABS: CALCIUM 8.3 mg/dL (8.5-10.1); CREATININE 0.9 mg/dL (0.6-1.0); MAGNESIUM 1.7 mg/dL (1.8-2.4); POTASSIUM 4.6 mmol/L (3.5-5.1)
[2021-03-01 07:09] LABS: URINE BILIRUBIN NEGATIVE (Negative); URINE BLOOD TRACE (Negative); URINE CLARITY CLEAR; URINE COLOR YELLOW; URINE GLUCOSE-RANDOM* 3+ (Negative); URINE KETONES NEGATIVE (Negative); URINE LEUKOCYTES-REFLEX TRACE (Negative); URINE NITRITE-REFLEX NEGATIVE (Negative); URINE PROTEIN (DIPSTICK) NEGATIVE (Negative); URINE SPECIFIC GRAVITY 1.015 (1.005-1.035); URINE UROBILINOGEN 0.2 E.U./dl (0.2-1.0)
[2021-03-01 08:20] VITALS: BP 176/92
--- NOTE | 2021-03-01 15:38 | NUR ---
Assumed pt care at 7am.Pt in bed resting.Assessment completed.vss.Pt in bed for breakfast and am meds.Dr Payton here.informed pt about possible dc home today or transfer to rehab unit for more strenthening if accepted.Therapist tranfered pt to chair after breakfast.No verbal c/o. Will continue to monitor.
--- NOTE | 2021-03-01 16:10 | NUR ---
PT ADMITTED RELATED TO WEAKNESS AND MATEO. CM REVIEWED CHART AND SPOKE WITH CARE TEAM. CM MET WITH PT AT BEDSIDE THIS DAY. PT APPERED TO BE A&O X4. CM ROLE INTRODUCED. PT INDICATED SHE LIVES IN A HOUSE WITH HER SPOUSE WITH A STAIR GLIDE TO ENTER AND NO STEPS SHE USES INSIDE. PT INDICATED SHE HAS 2 WC AND THREE WALKERS FOR USE AT HOME. PT HAD BEEN ON SERVICE WITH [facility] EDUCATION COORDINATOR. PT'S SPOUSE ASSISTS PT SHE NEEDS IN THE HOME ENVIRONMENT. PT INDICATED SHE PLANS TO RETURN HOME ONCE MEDICALLY STABLE AND RESUME HH SERVICES WITH [facility]. PT, THERAPY, AND 5N LIAISON ALL INDICATED THAT PT WOULD LIKELY BE SAFE TO RETURN HOME WITH SERVICES ONCE MEDICALLY STABLE PT IS AT [facility]. CM FOLLOWING REGARDING DC PLANNING.
[2021-03-01 17:06] VITALS: BP 132/69
[2021-03-01 19:32] VITALS: BP 143/70
--- NOTE | 2021-03-02 02:41 | NUR ---
ASSUME CARE OF PT AT SHIFT CHANGE. PT IS AOX3-4 AND LETS NEEDS BE KNOWN. FALL PRECAUTION IN PLACE. PT DENIED PAIN, NAUSEA OR SOA. ASSESSMENT CHARTED. PT RAN SR ON TELE. PT WAS ABLE TO GET COMFORTABLE AND SLEEP PART OF THE SHIFT VSS AND NO S/S OF ACUTE DISTRESS. WILL CONTINUE TO MONITOR. PT LIKELY TO DC IN THE AM.
[2021-03-02 08:00] VITALS: BP 164/93
[2021-03-02 10:50] VITALS: BP 135/74
[2021-03-02 13:42] VITALS: BP 135/74
[2021-03-02 14:44] VITALS: BP 135/74
[2021-03-02 14:46] VITALS: BP 135/74
--- NOTE | 2021-03-02 14:58 | NUR ---
CARE TEAM INDICATED THAT PT IS MEDICALLY STABLE TO DC HOME THIS DAY WITH [facility]. DR. ANDERSON WAS RECOMMENDING PT GO FOR SKILLED REHAB STAY BUT PT WASN'T RECEPTIVE. PT TO DC HOME WITH SPOUSE AND RESUMPTION ON [facility]. ORDERS FAXED. PT HAS ALL NEEDED DME. NO OTHER CM INTERVENTION INDICATED. CASE CLOSED.
--- NOTE | 2021-03-02 15:44 | NUR ---
Assumed pt care at 7am.Pt in bed very tearful and frustrated due to frequent urination. Emotional support given and completed bed change done.Assessment completed.Pt wanted to dc home today before her leaves for work.Dr Payton here,dc order noted but never completed dc summary until around 1430.Pt notified to call for ride.Dc summary compile and reviwed with pt. Saline lock dc'd.Home med picked up from inpt pharmacy and sent home with at 1545 in [place] with .
--- NOTE | 2021-03-02 16:41 | NUR ---
FAXED DC ORDERS/SUMMARY TO [facility] RECEIVED CONFIRMAITON.
== END 2021-03-02 16:24 | disposition home health service (06) | DRG 682 ==
LOC: ER 11:30 → EROBS 13:43 → 4W 13:43
PROVIDERS: Internal Medicine; Nurse Practitioner; Student in an Organized Health Care Education/Training Program; ADMIT Hospitalist; ATTEND Hospitalist
DX: N17.0 Acute kidney failure with tubular necrosis (principal); G93.41 Metabolic encephalopathy; E44.0 Moderate protein-calorie malnutrition; H54.8 Legal blindness, as defined in USA; M81.0 Age-related osteoporosis without current pathological fracture; K21.9 Gastro-esophageal reflux disease without esophagitis; F32.9 Major depressive disorder, single episode, unspecified; E11.42 Type 2 diabetes mellitus with diabetic polyneuropathy; I10 Essential (primary) hypertension; M06.9 Rheumatoid arthritis, unspecified; G89.29 Other chronic pain; M54.9 Dorsalgia, unspecified; R53.81 Other malaise; E11.65 Type 2 diabetes mellitus with hyperglycemia; E86.0 Dehydration; M54.2 Cervicalgia; Z90.81 Acquired absence of spleen; Z93.1 Gastrostomy status; Z90.49 Acquired absence of other specified parts of digestive tract; Z79.4 Long term (current) use of insulin; Z98.42 Cataract extraction status, left eye; Z98.41 Cataract extraction status, right eye; Z86.14 Personal history of Methicillin resistant Staphylococcus aureus infection; Z87.81 Personal history of (healed) traumatic fracture; Z79.899 Other long term (current) drug therapy
CPT/HCPCS: 10040; 10045

== ENCOUNTER → 2021-05-20 | Outpatient (CLI) | payer OTHER | LOC: RAD 12:24 | PROVIDERS: ATTEND Nurse Practitioner | DX: S91.001A Unspecified open wound, right ankle, initial encounter (principal); S91.105A Unspecified open wound of left lesser toe(s) without damage to nail, initial encounter; M85.871 Other specified disorders of bone density and structure, right ankle and foot; M19.071 Primary osteoarthritis, right ankle and foot; X58.XXXA Exposure to other specified factors, initial encounter; Y93.89 Activity, other specified; Y92.89 Other specified places as the place of occurrence of the external cause; Y99.8 Other external cause status ==

== ENCOUNTER → 2021-06-14 | Outpatient (CLI) | payer OTHER | LOC: HYPER 07:40 | PROVIDERS: ATTEND Emergency Medicine Emergency Medical Services | DX: E11.621 Type 2 diabetes mellitus with foot ulcer (principal); L97.521 Non-pressure chronic ulcer of other part of left foot limited to breakdown of skin; E11.622 Type 2 diabetes mellitus with other skin ulcer; L97.312 Non-pressure chronic ulcer of right ankle with fat layer exposed; T24.211A Burn of second degree of right thigh, initial encounter; T31.0 Burns involving less than 10% of body surface; E11.43 Type 2 diabetes mellitus with diabetic autonomic (poly)neuropathy; E11.36 Type 2 diabetes mellitus with diabetic cataract; H26.9 Unspecified cataract; H54.8 Legal blindness, as defined in USA; K21.9 Gastro-esophageal reflux disease without esophagitis; F32.9 Major depressive disorder, single episode, unspecified; Z79.4 Long term (current) use of insulin; Z90.49 Acquired absence of other specified parts of digestive tract; X08.8XXA Exposure to other specified smoke, fire and flames, initial encounter; Y93.89 Activity, other specified; Y92.89 Other specified places as the place of occurrence of the external cause; Y99.8 Other external cause status ==

== ENCOUNTER 2021-06-22 13:49 | Emergency (ER) | payer OTHER ==
[~2021-06-22] VITALS: Ht 172.7 cm; Wt 60.3 kg
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
[2021-06-22 18:34] LABS: HEMATOCRIT 37.2 % (37.0-47.0); HEMOGLOBIN 12.1 gm/dL (12.0-15.0); MCH 31.3 pg (26.0-34.0); MCHC 32.4 g/dL (28.0-37.0); MCV 96.6 fL (80.0-100.0); PLATELET COUNT 319 thou/uL (150-400); RBC 3.86 mil/uL (4.20-5.00); WBC 7.4 thou/uL (4.0-11.0)
[2021-06-22 18:39] LABS: POTASSIUM 4.5 mmol/L (3.5-5.1)
[2021-06-22 19:00] LABS: URINE BILIRUBIN NEGATIVE (Negative); URINE BLOOD NEGATIVE (Negative); URINE CLARITY CLEAR; URINE COLOR YELLOW; URINE GLUCOSE-RANDOM* NEGATIVE (Negative); URINE KETONES NEGATIVE (Negative); URINE LEUKOCYTES-REFLEX NEGATIVE (Negative); URINE NITRITE-REFLEX NEGATIVE (Negative); URINE PROTEIN (DIPSTICK) NEGATIVE (Negative); URINE UROBILINOGEN 0.2 E.U./dl (0.2-1.0)
[2021-06-22 19:44] LABS: ABSOLUTE NEUTROPHILS 4.6 thou/uL (1.4-8.2); PLATELET ESTIMATE NORMAL
[2021-06-22 20:04] VITALS: BP 201/116
== END 2021-06-22 20:19 | disposition home or self-care (01) ==
LOC: ER 13:49
PROVIDERS: Nurse Practitioner
DX: M25.552 Pain in left hip (principal); Z20.822 Contact with and (suspected) exposure to COVID-19; E11.40 Type 2 diabetes mellitus with diabetic neuropathy, unspecified; F32.9 Major depressive disorder, single episode, unspecified; K21.9 Gastro-esophageal reflux disease without esophagitis; M19.90 Unspecified osteoarthritis, unspecified site; Z98.890 Other specified postprocedural states; Z90.49 Acquired absence of other specified parts of digestive tract; Z79.891 Long term (current) use of opiate analgesic; Z79.4 Long term (current) use of insulin; Z79.899 Other long term (current) drug therapy

== ENCOUNTER → 2021-06-28 | Outpatient (CLI) | payer OTHER | LOC: HYPER 07:39 | PROVIDERS: ATTEND Emergency Medicine Emergency Medical Services | DX: E11.621 Type 2 diabetes mellitus with foot ulcer (principal); L97.521 Non-pressure chronic ulcer of other part of left foot limited to breakdown of skin; E11.622 Type 2 diabetes mellitus with other skin ulcer; L97.312 Non-pressure chronic ulcer of right ankle with fat layer exposed; T24.211D Burn of second degree of right thigh, subsequent encounter; T31.0 Burns involving less than 10% of body surface; E11.43 Type 2 diabetes mellitus with diabetic autonomic (poly)neuropathy; E11.36 Type 2 diabetes mellitus with diabetic cataract; H26.9 Unspecified cataract; H54.8 Legal blindness, as defined in USA; K21.9 Gastro-esophageal reflux disease without esophagitis; F32.9 Major depressive disorder, single episode, unspecified; Z79.4 Long term (current) use of insulin; Z90.49 Acquired absence of other specified parts of digestive tract; X08.8XXD Exposure to other specified smoke, fire and flames, subsequent encounter ==

== ENCOUNTER → 2021-07-12 | Outpatient (CLI) | payer OTHER | LOC: HYPER 07:46 | PROVIDERS: ATTEND Emergency Medicine Emergency Medical Services | DX: E11.621 Type 2 diabetes mellitus with foot ulcer (principal); L97.521 Non-pressure chronic ulcer of other part of left foot limited to breakdown of skin; E11.622 Type 2 diabetes mellitus with other skin ulcer; L97.312 Non-pressure chronic ulcer of right ankle with fat layer exposed; T24.211D Burn of second degree of right thigh, subsequent encounter; T31.0 Burns involving less than 10% of body surface; E11.43 Type 2 diabetes mellitus with diabetic autonomic (poly)neuropathy; E11.36 Type 2 diabetes mellitus with diabetic cataract; H26.9 Unspecified cataract; H54.8 Legal blindness, as defined in USA; K21.9 Gastro-esophageal reflux disease without esophagitis; F32.9 Major depressive disorder, single episode, unspecified; Z79.4 Long term (current) use of insulin; Z90.49 Acquired absence of other specified parts of digestive tract; X08.8XXD Exposure to other specified smoke, fire and flames, subsequent encounter ==

== ENCOUNTER → 2021-07-23 | Outpatient (CLI) | payer OTHER ==
[~2021-07-23] VITALS: Ht 170.2 cm; Wt 61.7 kg
[~2021-07-23] MED LIST changes: +DOXYCYCLINE MO100 MG PO; +ERYTHROMYCIN250 M2 PO; +OXYBUTYNIN 5 MG5 M2 PO; +TYMLOS1.56 ML SUBQ
== END | disposition home or self-care (01) ==
LOC: GI 06:33
PROVIDERS: ATTEND Internal Medicine Gastroenterology
DX: R13.10 Dysphagia, unspecified (principal); K91.89 Other postprocedural complications and disorders of digestive system; K21.00 Gastro-esophageal reflux disease with esophagitis, without bleeding; I10 Essential (primary) hypertension; E11.9 Type 2 diabetes mellitus without complications; Z98.890 Other specified postprocedural states; Z79.899 Other long term (current) drug therapy; Z90.49 Acquired absence of other specified parts of digestive tract; Z20.822 Contact with and (suspected) exposure to COVID-19
CPT/HCPCS: 62110; 62900

== ENCOUNTER → 2021-07-26 | Outpatient (CLI) | payer OTHER | LOC: HYPER 07:41 | PROVIDERS: ATTEND Emergency Medicine Emergency Medical Services | DX: E11.622 Type 2 diabetes mellitus with other skin ulcer (principal); L97.312 Non-pressure chronic ulcer of right ankle with fat layer exposed; E11.43 Type 2 diabetes mellitus with diabetic autonomic (poly)neuropathy; E11.36 Type 2 diabetes mellitus with diabetic cataract; H26.9 Unspecified cataract; H54.8 Legal blindness, as defined in USA; K21.9 Gastro-esophageal reflux disease without esophagitis; F32.9 Major depressive disorder, single episode, unspecified; Z79.4 Long term (current) use of insulin; Z90.49 Acquired absence of other specified parts of digestive tract ==

== ENCOUNTER 2021-07-27 11:48 | Inpatient (IN) | payer OTHER ==
[~2021-07-27] VITALS: Ht 172.7 cm; Wt 59.0 kg
[2021-07-27 11:57] VITALS: BP 111/69
[2021-07-27 18:16] LABS: ABSOLUTE NEUTROPHILS 5.6 thou/uL (1.4-8.2); BASOPHILS 0.8 % (0.0-2.0); EOSINOPHILS 4.4 % (0.0-3.0); HEMATOCRIT 36.5 % (37.0-47.0); HEMOGLOBIN 11.7 gm/dL (12.0-15.0); LYMPHOCYTES 20.3 % (24.0-44.0); MCH 30.4 pg (26.0-34.0); MCHC 32.1 g/dL (28.0-37.0); MCV 94.7 fL (80.0-100.0); MONOCYTES 7.6 % (1.0-8.0); PLATELET COUNT 244 thou/uL (150-400); POLYS 66.9 % (36.0-66.0); RBC 3.85 mil/uL (4.20-5.00); WBC 8.4 thou/uL (4.0-11.0)
[2021-07-27 18:27] LABS: CALCIUM 9.1 mg/dL (8.5-10.1); CREATININE 1.2 mg/dL (0.6-1.0); POTASSIUM 4.5 mmol/L (3.5-5.1)
[2021-07-27 18:29] LABS: APTT 28.5 Seconds (24.5-32.8); INR 1.1; PROTIME 11.9 Seconds (10.5-12.1)
[2021-07-27 18:36] LABS: ALBUMIN 2.5 g/dL (3.4-5.0); DIRECT BILIRUBIN 0.2 mg/dL (<0.1-0.2); TOTAL BILIRUBIN 0.5 mg/dL (0.2-1.0); TOTAL PROTEIN 6.8 g/dL (6.4-8.2)
[2021-07-28 09:20] VITALS: BP 172/92
--- NOTE | 2021-07-28 14:18 | NUR ---
Spoke with Citlali at [facility] at [phone] and informed of patient being seen at [facility] ED and being released to home with resumption of home health services. Citlali is alerting the PT on the case and thanked me for the call and update.
[2021-07-28 16:40] VITALS: BP 144/90
[2021-07-28 16:55] VITALS: BP 174/87
--- NOTE | 2021-07-28 17:41 | NUR ---
PT. WITH EPISODE OF ANXIETY THIS AFTERNOON. PT. C/O PAIN AND WAS AGITATED. PT. REPOSITIONED ON CART AND REASSURED OF PLAN OF CARE. PT. STATES, "I'M TRYING TO BE POSITIVE." PT. REQUESTING XANAX TO HELP CALM HER DOWN. PT. PROVIDED XANAX ORDERED. AT THIS TIME A PUBLIC HEALTH AIDE FROM [facility] IS HERE PRAYING WITH THE PATIENT. WILL REASSESS.
--- NOTE | 2021-07-29 07:41 | NUR ---
ORDERS FOR EVAL AND TREAT HOWEVER Pt DISCHARGED TO HOME FROM E.R. PRIOR TO BEING SEEN
== END 2021-07-28 17:10 | disposition home health service (06) | DRG 562 ==
LOC: ER 11:48 → EROBS 14:31
PROVIDERS: Nurse Practitioner; ADMIT Internal Medicine; ATTEND Internal Medicine
DX: S82.141A Displaced bicondylar fracture of right tibia, initial encounter for closed fracture (principal); E43 Unspecified severe protein-calorie malnutrition; Z68.1 Body mass index [BMI] 19.9 or less, adult; E11.9 Type 2 diabetes mellitus without complications; E11.40 Type 2 diabetes mellitus with diabetic neuropathy, unspecified; F32.9 Major depressive disorder, single episode, unspecified; K21.9 Gastro-esophageal reflux disease without esophagitis; M06.9 Rheumatoid arthritis, unspecified; I10 Essential (primary) hypertension; M81.0 Age-related osteoporosis without current pathological fracture; Z20.822 Contact with and (suspected) exposure to COVID-19; H54.62 Unqualified visual loss, left eye, normal vision right eye; S80.01XA Contusion of right knee, initial encounter; W18.39XA Other fall on same level, initial encounter; Y93.89 Activity, other specified; Y92.89 Other specified places as the place of occurrence of the external cause; Y99.8 Other external cause status; Z93.1 Gastrostomy status; Z90.49 Acquired absence of other specified parts of digestive tract; Z86.14 Personal history of Methicillin resistant Staphylococcus aureus infection; Z91.19 Patient's noncompliance with other medical treatment and regimen; Z79.4 Long term (current) use of insulin; Z90.81 Acquired absence of spleen

== ENCOUNTER → 2021-08-13 | Outpatient (CLI) | payer OTHER | LOC: HYPER 08-09 07:43 | PROVIDERS: ATTEND Emergency Medicine Emergency Medical Services | DX: E11.622 Type 2 diabetes mellitus with other skin ulcer (principal); L97.312 Non-pressure chronic ulcer of right ankle with fat layer exposed; E11.621 Type 2 diabetes mellitus with foot ulcer; L97.511 Non-pressure chronic ulcer of other part of right foot limited to breakdown of skin; S90.424A Blister (nonthermal), right lesser toe(s), initial encounter; S90.425A Blister (nonthermal), left lesser toe(s), initial encounter; E11.43 Type 2 diabetes mellitus with diabetic autonomic (poly)neuropathy; E11.36 Type 2 diabetes mellitus with diabetic cataract; H26.9 Unspecified cataract; H54.8 Legal blindness, as defined in USA; K21.9 Gastro-esophageal reflux disease without esophagitis; F32.9 Major depressive disorder, single episode, unspecified; Z79.4 Long term (current) use of insulin; Z90.49 Acquired absence of other specified parts of digestive tract; X58.XXXA Exposure to other specified factors, initial encounter; Y93.89 Activity, other specified; Y92.89 Other specified places as the place of occurrence of the external cause; Y99.8 Other external cause status ==

== ENCOUNTER → 2021-08-30 | Outpatient (CLI) | payer OTHER | LOC: HYPER 07:45 | PROVIDERS: ATTEND Emergency Medicine Emergency Medical Services | DX: E11.622 Type 2 diabetes mellitus with other skin ulcer (principal); L97.312 Non-pressure chronic ulcer of right ankle with fat layer exposed; E11.621 Type 2 diabetes mellitus with foot ulcer; L97.511 Non-pressure chronic ulcer of other part of right foot limited to breakdown of skin; S80.812D Abrasion, left lower leg, subsequent encounter; S90.424D Blister (nonthermal), right lesser toe(s), subsequent encounter; S90.425D Blister (nonthermal), left lesser toe(s), subsequent encounter; E11.43 Type 2 diabetes mellitus with diabetic autonomic (poly)neuropathy; E11.36 Type 2 diabetes mellitus with diabetic cataract; H26.9 Unspecified cataract; H54.8 Legal blindness, as defined in USA; K21.9 Gastro-esophageal reflux disease without esophagitis; F32.9 Major depressive disorder, single episode, unspecified; Z79.4 Long term (current) use of insulin; Z90.49 Acquired absence of other specified parts of digestive tract; X58.XXXD Exposure to other specified factors, subsequent encounter ==

== ENCOUNTER 2021-09-24 08:14 | Emergency (ER) | payer OTHER ==
[~2021-09-24] VITALS: Ht 172.7 cm; Wt 55.8 kg
--- NOTE | ~2021-09-24 | EMS ---
[facility] [address] [place] [address] EMS Patient Care Report Name: SYDNEY STEINBERG Room #: REG JORY Mullen#: [id number] Admission: 09/24/21 Attend Phys: Discharge: Date of : 55 Report #: [id number] THIS REPORT FOR: //name// Report Transmitted: 09/24/2021 11:38 EMS Care Summary [place], [place]/[facility] Incident [id number] @ 09/24/2021 07:33 Incident Location [id number] [place] [address] Patient SYDNEY CASTRO Female, 65 Years 1955 Patient Address [id number] [place] [address] Patient History Diabetes,Gastrointestinal Problems, Chief Complaint "I feel like I'm going to have a nervous breakdown Disposition Transported No Lights/[place] Dispatch Reason Abdominal Pain/Problems Transported To [facility] Narrative pt found seated in wheelchair, a&o. she states, "I feel like I'm going to have a nervous breakdown". pt has many chronic conditions and states that her scalp, hands and arms started itching, over the past 24 hrs. the new symptom has put her "over the edge" and she is unable to cope. her on scene seems frustrated w/ her conditions. pt has a Dr appt scheduled on Monday but does not want to wait and is req transport to [facility] for eval. pt BGL is 193 which is normal for her. she has weakness, abd pain, and a cough, all which are chronic for her. pt to stair lift and cot. transport w/o change. [facility] [address] [place] [address] EMS Patient Care Report Name: SYDNEY STEINBERG Room #: REG Linus.#: [id number] Admission: 09/24/21 Attend Phys: Discharge: Date of : 55 Report #: [id number] Initial Vitals @08:04P: 77,R: 18,BP: 195/106,Pain: 8/10,GCS: 15,Glucose: 193,SpO2: 99,Revised Trauma: 12, Assessments @07:42MENTAL:No Abnormalities,SKIN:Other,HEENT:Head/Face: No Abnormalities,LUNG SOUNDS:General: Other,ABDOMEN:General: Other,PELVIS//GI:Incontinence,EXTREMITIES:PULSE:NEURO:Other, Impression Behavioral/psychiatric episode Procedures @07:42 ALS Assessment Response: Unchanged @08:00 Stretcher Response: Unchanged Timeline 07:30,Call Received 07:30,Dispatch Notified 07:33,Dispatched 07:33,En Route 07:40,On Scene 07:42,At Patient 07:42,ALS Assessment,Response: Unchanged 08:00,Stretcher,Response: Unchanged 08:04,BP: 195/106 M,PULSE: 77,RR: 18 R,SPO2: 99 Ox,ETCO2: ,B,PAIN: 8,GCS: 15, 08:08,Depart Scene 08:09,At Destination 08:31,Call Closed Disclaimer v1.1 Copyright 2020 [employer] This EMS Care Summary contains data elements from the applicable legal record (which may be displayed differently). It is designed to provide pertinent information for the following purposes: continuity of care, clinical quality, and state data reporting. The complete legal record is available to ED staff and administrators of the receiving hospital in [employer]'s Patient Tracker. All data is provided "as is."
[2021-09-24] MEDS ORDERED: CARAFATE 1 GM TA1 G1 PO (08:23)
[2021-09-24 08:54] LABS: EOSINOPHILS 3.9 % (0.0-3.0); HEMATOCRIT 35.9 % (37.0-47.0); HEMOGLOBIN 11.5 gm/dL (12.0-15.0); LYMPHOCYTES 9.1 % (24.0-44.0); MCH 30.9 pg (26.0-34.0); MCHC 32.1 g/dL (28.0-37.0); MCV 96.2 fL (80.0-100.0); MONOCYTES 6.4 % (1.0-8.0); PLATELET COUNT 329 thou/uL (150-400); POLYS 80.6 % (36.0-66.0); RBC 3.74 mil/uL (4.20-5.00); RDW 16.3 % (10.5-14.5); WBC 11.2 thou/uL (4.0-11.0)
[2021-09-24 09:14] LABS: URINE BILIRUBIN NEGATIVE (Negative); URINE BLOOD NEGATIVE (Negative); URINE CLARITY CLEAR; URINE COLOR YELLOW; URINE GLUCOSE-RANDOM* NEGATIVE (Negative); URINE KETONES TRACE (Negative); URINE LEUKOCYTES-REFLEX NEGATIVE (Negative); URINE NITRITE-REFLEX NEGATIVE (Negative); URINE PROTEIN (DIPSTICK) NEGATIVE (Negative); URINE UROBILINOGEN 0.2 E.U./dl (0.2-1.0)
[2021-09-24 09:30] LABS: CALCIUM 9.1 mg/dL (8.5-10.1); CREATININE 0.8 mg/dL (0.6-1.0)
[2021-09-24 16:55] VITALS: BP 162/86
--- NOTE | 2021-09-25 07:04 | EKG ---
[place] [address] [place] [address] ELECTROCARDIOGRAM REPORT Name: SYDNEY STEINBERG Room #: DEP [facility]#: [id number] Admission: 09/24/21 Attend Phys: Discharge: 09/24/21 Date of : 55 Report #: [id number] [facility] ED Test Date: 2021-09-24 Test Time: 08:43:09 Pat Name: SYDNEY STEINBERG Department: Room: Gender: F Industrial Staff Nurse: : 1955 Requested By: Dakota Snell Order Number: [id number] MD: Semaj Mercedes Measurements Intervals Converse Rate: 76 P: 0 MD: 64 QRS: 50 QRSD: 89 T: 79 QT: 523 QTc: 589 Interpretive Statements Sinus rhythm Short MD interval LAE, consider biatrial enlargement Compared to ECG 02/26/2021 12:13:48 Short MD interval now present Ectopic atrial rhythm no longer present Poor R-wave progression no longer present Electronically Signed On 09-25-2021 7:03:53 [employer] by Semaj Mercedes [email or web address] <ELECTRONICALLY SIGNED> By: Semaj Mercedes MD, [facility] 09/25/21 [phone] Semaj Mercedes MD, [facility] /EPI
== END 2021-09-24 16:55 ==
LOC: ER 08:14
PROVIDERS: Emergency Medicine
DX: F32.9 Major depressive disorder, single episode, unspecified (principal); Z20.822 Contact with and (suspected) exposure to COVID-19; I10 Essential (primary) hypertension; R30.0 Dysuria; E11.40 Type 2 diabetes mellitus with diabetic neuropathy, unspecified; K31.84 Gastroparesis; K21.9 Gastro-esophageal reflux disease without esophagitis; M81.0 Age-related osteoporosis without current pathological fracture; M06.9 Rheumatoid arthritis, unspecified; Z98.890 Other specified postprocedural states; Z90.89 Acquired absence of other organs; Z90.49 Acquired absence of other specified parts of digestive tract; Z79.4 Long term (current) use of insulin; Z79.1 Long term (current) use of non-steroidal anti-inflammatories (NSAID); Z79.891 Long term (current) use of opiate analgesic; Z79.899 Other long term (current) drug therapy

== ENCOUNTER 2021-09-24 15:00 | Inpatient (IN) | payer OTHER ==
[~2021-09-24] VITALS: Ht 175.3 cm; Wt 56.7 kg
[~2021-09-24 15:00] MED LIST changes: +CARAFATE 1 GM TA1 G1 PO
[2021-09-24 17:30] VITALS: BP 152/84
--- NOTE | 2021-09-24 19:58 | NUR ---
65 yo admitted via ER for passive SI, denies SI/HI at this time. Extensive medical hx. Hospitalized 2 wks ago for rehab for mobility issues. Alert and orientated to person, place but not to time. 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 Pt. reports check BG about once a month, states almost every night. Pt. states she is on regular diet, states she is noncompliant with CHO control diet. Blind in L eye. Breath sounds clear. Reg HR auscultated. Color pink with brisk capillary refill and palpable peripheral pulses. Active bowel sounds over rounded, soft abdomen. Pt. states it has been 2 years since she had BM but smear of feces noted on rectum. Incontinent of urine per ER, brief dry at this time. Reportedly uses WC to ambulate. Consents obtained via phone from .
[2021-09-24 21:00] VITALS: BP 122/101
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
[2021-09-25 05:58] LABS: CHOLESTEROL 138 mg/dL (<200); HDL CHOLESTEROL 51 mg/dL (>40); LDL CHOLESTEROL 74 mg/dL (<100); TC:HDL 2.7 Ratio (Not establshd); TRIGLYCERIDE 67 mg/dL (<150); VLDL 13 mg/dL (<40)
[2021-09-25 06:15] LABS: SERUM ASSESSMENT Clear
[2021-09-25 11:11] VITALS: BP 96/60
--- NOTE | 2021-09-25 17:38 | NUR ---
Assumed pt care at 0700. pt was alert and oriented x4. Assessments completed, vss. Pt is calm, cooperative and pleasant this shift. Took meds whole, no difficulty noted. Denies si/hi, denies pain at this time. Ambulates with a Brandee chair and walker. Continent this shift of bowel and bladder. Makes needs known to staff. Pt is a fall risk, Fall precaution in place. Medication education done during med administration. Pt is progressing towards her d/c goals. Came out to eat lunch and dinner in the dinning room. At this time pt is rouding up with her dinner. Will continue to monitor.
[2021-09-25 20:23] VITALS: BP 116/76
--- NOTE | 2021-09-26 05:57 | NUR ---
PATIENT ISOLATIVE THIS SHIFT.PATIENT HAD A FLAT AFFECT, POOR EYE CONTACT, GOOD GROOMING AND HYGIENE. FALL PRECAUTION IN PLACE. PATIENT ENCORAGED FLUIDS. PATIENT DENIED PAIN OR DISCOMFORT. PATIENT IN BED ASLEEP AT THIS TIME BREATHING REGULAR AND UNLABOURED.
[2021-09-26 10:08] VITALS: BP 93/59
--- NOTE | 2021-09-26 10:43 | NUR ---
In person contact with pt. Pt. provided some background hx. Pt. reports being born and raised in [place]. The family home consisted of her mother ( in 2001) and father (), 4 sisters and a younger brother. The pt. is the middle child. The pt. was close to her family growing up and continues to be close to her siblings with the exception of her sister, May, who distanced herself from the family after the passing of their father. The pt. has a son, Estiven, and 3 grandchildren who reside in [place], [place]. The pt. met her when he was visiting his family who lived next door to her family in [place]. They courted for approximately 2 weeks before her decided he wanted to her. They have remained for over 40 years and lived in [place] (his home) for several of those years. The patient has diabetes. Her father also diabetes. The patient acknowledges not necessarily following dietary recommendations and having a "sweet treat". The patient's will try to discourage her from having the treat. The patient and her have a home together with pets. The will walk the dogs. The patient acknowledges her being more mobile than her. 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 The patient is not employed. She receives $1541 a month in disability income. 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 The patient completed high school and desired to go to college but was told she would need to go to [employer] college to improve her grades. Due to struggling with high school, the patient decided this was not the path for her although she did desire to be a floralist. The patient used to enjoy doing jigsaw puzzles. She is unable to do them now due to being blind in her left eye. The patient does not attend jain and does not consider herself to be any buddhism. The patient is very proud to state that she is able to bath, dress and feed herself. The patient is also able to make it to the bathroom on her own with the use of a walker. The patient denies any current and past SI/HI. She states she has a physical and occupational therapist through [employer] that comes to the home.
--- NOTE | 2021-09-26 16:13 | NUR ---
Assumed pt care at 0700. pt was alert and oriented x4. Assessments completed, vss. Lungs clear, active bowel sound. Denies si/hi. Denies pain. Calm and cooperative with care. Continent of bowel and bladder. Took meds whole, no difficulty noted. Ambulates with a walker. Pt is a fall risk, fall precaution in place. Make needs known to staff. At this time pt is in her room. Will continue to monitor.
[2021-09-26 19:28] VITALS: BP 92/63
--- NOTE | 2021-09-27 02:31 | NUR ---
PATIENT CARE WAS RESUMED AT 1900. SHE IS ABLE TO VERBALIZE HER CONCERNS. CONTINNT OF B/B. MODERATE ASSIST WITH CARE. TOOK HER MEDICATION WHOLE. SHE DENIES PAIN/SI/AVH/HI. LUNGS ARE CLEAR BS ACITVE X4 QUADS. CONTINUE CARE AND MONITOR.
[2021-09-27 10:46] VITALS: BP 82/54
[2021-09-27 11:28] VITALS: BP 106/78
--- NOTE | 2021-09-27 12:49 | NUR ---
RESUMMED CARE FROM OVERNIGHT SHIFT THIS AM, PATIENT ALERT ORIENTED TIMES 4. PATIENT ATE BREAKFAST TOOK MEDICATION WITHOUT INCIDENCE. PATIENT DENIES SI/HI/AH/VH AT PRESENT. PATIENTS ABDOMEN SOFT BOWEL SOUNDS PRESENT, PATIENTS LUNGS CLEAR. PATIENT PARTICIPATED IN GROUPS PATIENT HAS NOT DISPLAYED ANY BEHAVIORS. GAVE PATIENT TYLENOL 650 MG THIS AFTERNOON FOR A HEADACHE, WILL CONTINUE TO MONITOR PATIENT FOR SAFETY AND BEHAVIORS.
[2021-09-27 19:20] VITALS: BP 109/66
[2021-09-27 20:30] VITALS: BP 109/66
--- NOTE | 2021-09-28 03:15 | NUR ---
PATIENT HAS BEEN IN HER ROOM MOST OF EVENING. SHE WAS LAYING IN BED. SHE IS PLEASANT AND ABLE TO HOLD A CONVERSATION. I ASKED HER WHY SHE WAS HERE AND SHE STATES THAT SHE LIVES AT HOME WITH HER AND HAD HAD A COUPLE OF BAD DAYS WITH LOTS OF ANXIETY. SHE STATES SHE IS MUCH BETTER AND CAN'T WAIT TO GET BACK HOME WITH HER . SHE THEN ASKED ME WHY PEOPLE KEEP ASKING HER IF SHE KNOWS THE DATE OR MONTH WE ARE IN. SHE STATES THAT SHE KEEPS TELLING PEOPLE IT'S FEBRUARY AND NO ONE WANTS TO BELIEVE HER. I ASKED AGAIN, WHY DO YOU FEEL IT IS FEBRUARY? SHE SAID WELL IT IS NUNU TIME AND THERE FORE IT IS FEBRUARY. I EXPLAINED SHE IS CORRECT IT IS BUT FEBRUARY FALLS IN THE SPRING. SHE LOOKED CONFUSED AND THEN SAID, OH THAT'S RIGHT. PATIENT TOOK HER PILLS WITH WATER. SUCRATE WAS DISOLVED IN WATER FOR HER TO TAKE EASIER. PATIENT DENIES PAIN. DENIES SI/HI/AVH. PATIENT RESTING IN BED AT THIS TIME. PATIENT IS UP WITH WALKER OR WC. SHE HAS BEEN CONTINENT TONIGHT. ROUTINE ROUNDS TO ASSESS SAFETY AND STATUS OF PATIENT. BED IN LOW POSITION AND BED ALARM IS ON.
[2021-09-28 10:03] VITALS: BP 129/75
--- NOTE | 2021-09-28 16:59 | NUR ---
KEIRA and Dr. Melchor met with the Pt. The Pt's /DPOA, Semaj [phone], was a part of the meeting via phone. Semaj informed the Pt has had SI in the past with a plan to OD on pain meds. Pt was at [facility] and was having SI. Pt was seeing a psychologist while at [facility] to address to SI. Partick stated he does provide care taking in the home for the Pt. Semaj expressed the caretaking is a "strain" on him. Pt has been at [facility] and [facility] in the past. Treatment, medications and recommendation for placement was discussed. It's recommended that Pt be placed in LTC. Pt expressed that she was not happy about the recommendation and that she will be going back to her home. Pt informed that Semaj would be retiring in November and would be avaliable 05/[address] Davis explained the risk of burnout and saftey issues if Pt was to remain in the home. Semaj seemed undecided about the Pt going to a halfway. Dr. Davis plans to follow up with Semaj later in the week concerning the matter. KEIRA was able to complete a SlUMS with the Pt. Pt scored a 11/30.
--- NOTE | 2021-09-28 17:52 | NUR ---
Assumed pt care at 0700. Pt was alert and oriented to person, place and situation. Assessments completed, vss. Denies si/hi, denies pain. Took meds whole, no difficulty noted. PT SUCRALFATE was dissolved in water this shift, for pt comfort. Ambulates with a w/c and walker. Pt c/o of left Leg weakness. Dr Melchor notified. Calm and cooperative with care. Continent of bowel and bladder. Pt is progressing towards D/C goals. Pt is a Fall risk, fall precaution in place. At this time pt is relaxing in her room. Will continue to monitor.
[2021-09-28 20:30] VITALS: BP 105/67
[2021-09-28 20:35] VITALS: BP 105/67
--- NOTE | 2021-09-29 04:12 | NUR ---
PATIENT HAS BEEN IN ROOM ALL NIGHT. SHE IS A/0X2-3. SHE DID SAY SHE WAS HUNGRY TONIGHT SO PATIENT WAS GIVEN PB WITH [employer] AND PUDDING. BEFORE EATING HER BLOOD GLUCOSE WAS 210. SHE IS NOT ON SS BUT WAS GIVEN HER HS DOSE OF [place] 8UNITS. PATIENT STILL CONFUSED ABOUT PRESENT MONTH AND THINKS IT IS FEBRUARY EVEN THOUGH SHE KNOWS WE ARE IN NUNU SEASON. WE DID SOME TALKING AND SHE WAS EVENTUALLY ABLE TO REASON WHERE FEBRUARY BELONGS IN THE SEASONS. SHE DENIED PAIN, HI/SI/AVH. SHE IS SAD TONIGHT BECAUSE SHE FEELS FROM WHAT DR Lorenz TOLD HER TODAY THAT SHE PROBABLY WONT BE LEAVING UNTIL NEXT WEEK AND SHE WAS REALLY HOPING SHE COULD DISCHARGE THIS WEEK. SHE WAS HAPPY THAT SHE WAS ABLE TO WALK A LAP AROUND THE UNIT WITH PHYSICAL THERAPY TODAY AND IS HOPING TO CONTINUALLY IMPROVE AND BE ABLE TO WALK MORE. SHE IS INDEPENDENT WITH TOILETING AND MOST CARES. ROUTINE ROUNDS TO ASSESS SAFETY AND STATUS OF PATIENT. PATIENT SLEEPING AT THIS TIME. BED IN LOW POSITION AND BED ALARM IS ON.
[2021-09-29 06:46] LABS: FOLIC ACID 6.9 ng/mL (8.6-58.9)
[2021-09-29 10:28] VITALS: BP 116/66
[2021-09-29 11:54] VITALS: BP 129/75
--- NOTE | 2021-09-29 12:15 | NUR ---
KEIRA called Semaj concerning placement. Semaj is in agreement to placing the Pt. KEIRA went over the Pt's SLUMS results and provided education on the assessment. Semaj did not have any specific facilities for referrals to be sent. KEIRA encouraged Semaj to look into facilities and call KEIRA back with any specific ones he has identified. Semaj is okay with KEIRA sending referrals to facilities at this time. There were no other questions or concerns. KEIRA sent referrals to the following: [facility]
--- NOTE | 2021-09-29 12:40 | NUR ---
RESUMMED CARE FROM OVERNIGHT SHIFT THIS AM, PATIENT SITTING IN DAY ROOM AT TABLE QUIET. PATIENT ALERT ORIENTED TIMES 3 PATIENT DENIES SI/HI/AH/VH AT PRESENT. PATIENT ATE BREAKFAST TOOK MEDICATION WITHOUT INCIDENCE. PATIENTS ABDOMEN SOFT BOWEL SOUNDS PRESENT PATIENTS LUNGS CLEAR. I TOOK PATIENT DOWN FOR CT OF THE HEAD PATIENT COOPERATIVE. PATIENT HAS NOT DISPLAYED ANY BEHAVIORS. WILL CONTINUE TO MONITOR PATIENT FOR SAFETY AND BEHAVIORS.
[2021-09-29 19:15] VITALS: BP 110/79
--- NOTE | 2021-09-30 01:07 | NUR ---
pATIENT HAS BEEN OUT IN DAYY ROOM THIS EVENING. PATIENT IS CALM AND COOPERATIVE, COMPLIANT WITH HS MEDICATIONS. PATIENT DENIES ALL PSYCH. PATIENT IS ABLE TO GET AROUND BY USING A WHEELCHAIR AND HAS NO PROBLEMS MAKING HER NEEDS KNOWN. PATIENT HAS HAD NO NEGATIVE BEHAVIOR.
--- NOTE | 2021-09-30 07:06 | EKG ---
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: FSCHLINDSEY : 1955 Requested By: Michael Meclhor Order Number: [id number] MD: Semaj Mercedes Measurements Intervals [place] Rate: 70 P: 51 FL: 151 QRS: 27 QRSD: 83 T: 76 QT: 395 QTc: 427 Interpretive Statements Sinus rhythm Low voltage, extremity leads Left ventricular hypertrophy Baseline wander in lead(s) V5 Compared to ECG 09/24/2021 08:43:09 Low QRS voltage now present Left ventricular hypertrophy now present Short FL interval no longer present Electronically Signed On 09-30-2021 7:06:29 VOCATIONAL EXAMINER by Semaj Mercedes [email or web address] <ELECTRONICALLY SIGNED> By: Semaj Mercedes MD, FAC 09/30/21 0706 01 01 Semaj Mercedes MD, [facility] /EPI
[2021-09-30 07:19] LABS: CALCIUM 8.8 mg/dL (8.5-10.1); CREATININE 0.8 mg/dL (0.6-1.0)
[2021-09-30 10:05] VITALS: BP 124/78
--- NOTE | 2021-09-30 10:25 | NUR ---
Folate 6.9, recommend supplemenation
--- NOTE | 2021-09-30 10:36 | NUR ---
KEIRA recieved a call from Michelle Kurtz with [facility]. Michelle informed that [facility] is intrested in taking the Pt. Michelle requested the DA-124C. KEIRA was able to completed the form and fax it to Michelle. KEIRA also recieved and email from Cat at [facility] Cat informed Tanya of [facility] may be intrested in accepting the Pt. Cat requested a copy of the DPOA. KEIRA faxed the requested document. KEIRA did inform the Pt's , Jordi of this information. KEIRA will continue to follow
--- NOTE | 2021-09-30 17:48 | NUR ---
Assumed pt care at 0700. pt was alert and oriented x4. Assessments completed, vss. Lungs clear, active bowel sound. Took meds whole, no difficulty noted. Ambulates with a w/c. Denies si/hi, Denies pain. Calm and cooperative with care. Meds administered as scheduled. Continent of bowel and bladder. Makes needs known to staff. Pt is a fall risk, Fall precaution in place. Pt dropped off home meds for pts. Pharmacy was notified. MRI was completed this shift. At this time. Pt is the day room at time. Will continue to monitor.
--- NOTE | 2021-09-30 18:04 | HC ---
[facility] [place] [address] CONSULTATION Name: SYDNEY STEINBERG Room #: 522B-B ADM IN M.R.#: [id number] Admission: 09/24/21 Attend Phys: Michael Melchor DO Discharge: Date of : 55 Report #: [id number] THIS REPORT FOR: cc: Keyla Arguello Beth RNP Althoff, Jeffrey R. MD ~ DATE OF SERVICE: 09/29/2021 CHIEF COMPLAINT: Venous-type ulceration to the right lateral ankle. HISTORY: This is a 65-year-old female patient with whom I am familiar from outpatient evaluation. She has had a chronic ulcer to the right lateral malleolus that has slowly been improving, although recently on an appointment in about a week ago was noted to have significant redness, drainage and some eschar. It was debrided, cultured, pseudomonas sensitive to quinolones was noted. We were unable to start her on Levaquin due to interaction with both her erythromycin that she takes for gastrointestinal issues as well as trazodone. Initiated topical gentamicin. I have been asked to see her with regard to continuing wound care while here. PAST MEDICAL HISTORY: Positive for history of lap band surgery with postoperative complications, splenectomy. She has had a previous PEG tube, which is no longer present. Type 2 diabetes mellitus, peripheral neuropathy, gastroparesis, previous left ankle fracture, hypertension, macular degeneration, history of seizures and rheumatoid arthritis. MEDICATIONS: Include sucralfate, duloxetine, gabapentin, pantoprazole, Tradjenta, trazodone, oxybutynin, lisinopril. ALLERGIES: No known drug allergies. SOCIAL HISTORY: Negative for alcohol or tobacco use. She is . Her is not present at this time. REVIEW OF SYSTEMS: CONSTITUTIONAL: The patient denies fever, chills or weight loss. NEUROLOGICAL: The patient denies focal weakness or tingling. EYES: The patient denies visual changes, redness or drainage. ENT: The patient denies earache, nasal drainage, sore throat. CARDIOVASCULAR: The patient denies chest pain, palpitations, diaphoresis. PULMONARY: Denies cough or shortness of breath. GASTROINTESTINAL: Denies nausea, vomiting, diarrhea or abdominal pain. ORTHOPEDIC: The patient has pain and swelling and drainage from her right lateral ankle. Others systems in a 14-point review of systems are negative. [address] [address] CONSULTATION Name: SYDNEY STEINBERG Room #: 522B-B ADM IN ..#: [id number] Admission: 09/24/21 Attend Phys: Michael Melchor DO Discharge: Date of : 55 Report #: [id number] PHYSICAL EXAMINATION: VITAL SIGNS: At this time include temperature 97.6, pulse 76, respiratory rate 17, blood pressure 106/78. GENERAL: This is a chronically ill-appearing female patient, appears in no distress. HEENT: Head: Normocephalic. NECK: Nontender. LUNGS: Diminished. HEART: Regular rhythm. ABDOMEN: Soft, nontender. EXTREMITIES: Lower extremities demonstrate minimal edema. There is a circular ulcer on the right lateral malleolus. It has actually improved in its appearance since last week. She has less drainage and some granulation tissue present. LABORATORY STUDIES: Include blood glucose of 167. No other studies have been performed. CLINICAL IMPRESSION: 1. Venous-type ulcer versus possible pressure, friction-type ulceration to the right lateral malleolus. 2. Depression. 3. Hypertension. 4. Type 2 diabetes mellitus. 5. Gastroesophageal reflux. 6. Osteoporosis. RECOMMENDATIONS: At this point in time, we will recommend topical Aquacel Ag and bordered foam daily and p.r.n., keep pressure off as much as possible. Recent culture showing pseudomonas due to some interactions with her regular medications. We have held off on any quinolone therapy at present. Continue with medical management and nutritional support of her other underlying issues. I appreciate being asked to see her in consultation. <ELECTRONICALLY SIGNED> By: Thor Perez MD 09/30/21 1804 1632 36 Thor Perez MD /nt
[2021-09-30 20:08] VITALS: BP 156/92
--- NOTE | 2021-09-30 22:42 | NUR ---
PATIENT WAS IN BED AT BEGINING OF SHIFT AND WOKE EASILY TO TAKE HS MEDICATIONS. BG WAS 183 THIS EVENING. PATIENT DENIES ALL PSYCH AND REALLY JUST WANTS TO GO HOME. PATIENT HAS HAD NO NEGATIVE BEHAVIORS.
--- NOTE | 2021-10-01 08:10 | NUR ---
RT Progress Note- Chinyere's participation in the milieu as well as recreational therapy groups have been variable. She has been quiet and reserved throughout much of her admission, though smiles and interacts upon direct or 1;1 interactions. She acknowledges barriers such as vision and does little to look for modifications though offered many throughout the week such as sitting to appropriate side of therapist during group, low vision cards when group was playing card game, etc. [place] and RT team will continue to encourage participation and progress.
[2021-10-01 09:42] VITALS: BP 159/84
[2021-10-01 11:40] VITALS: BP 159/84
--- NOTE | 2021-10-01 12:14 | NUR ---
RESUMMED CARE FROM OVERNIGHT SHIFT THIS AM PATIENT IN ROOM LYING QUIET. PATIENT ALERT ORIENTED DHAVAL 3-4 PATIENT DENIES SI/HI/AH/VH AT PRESENT. PATIENT ATE BREAKFAST TOOK MEDICATION WITHOUT INCIDENCE. PATIENTS ABDOMEN SOFT BOWEL SOUNDS PRESENT; PATIENTS LUNGS CLEAR. PATIENT HAS A SMALL ULCER ON RT HEEL WOUND CARE CAME TO LOOK AT WOUND. IT IS HEALING WELL I CHANGED BANDAGE PATIENT SPOKE WITH TODAY. SHE STILL HAS SOME CONCERNS THAT SHE CANNOT GO HOME; SHE STATES SHE WON'T BE ABLE TO SEE HER DOGS. PATIENT SOMETIMES PARTICIPATES IN GROUPS. PATIENT HAS NOT DISPLAYED ANY BEHAVIORS WILL CONTINUE TO MONITOR PATIENT FOR SAFETY AND BEHAVIORS.
--- NOTE | 2021-10-01 20:00 | HC ---
[facility] [place] [address] CONSULTATION Name: SYDNEY STEINBERG Room #: 522B-B ADM IN M.R.#: [id number] Admission: 09/24/21 Attend Phys: Michael Melchor DO Discharge: Date of : 55 Report #: [id number] THIS REPORT FOR: cc: Keyla Arguello Beth RNP Khosla, Parveen K. MD ~ DATE OF SERVICE: 09/29/2021 HISTORY OF PRESENT ILLNESS: This is a 65-year-old female patient who was evaluated by me because a CT scan, which was done as a part of dementia workup was abnormal. CT scan was reviewed by me and this patient has a large lesion in the left cerebral hemisphere. She had prior CT scans and those CT scan does not show that lesion. The history is pretty complicated. She has a longstanding history for psychiatric problem. She had seizure at one time. She saw Dr. Mendoza who is a neurologist at [facility]. She was initially put on Keppra, but subsequently Keppra was discontinued. It looks like the patient also has some hypoglycemia at that time. Now, she is having progressively worsening memory problems from the last several weeks. Neither the patient nor the is a very good historian. REVIEW OF SYSTEMS: Pretty extensive. She had a pretty extensive psychiatric history. She has a history of dysphagia. She has multiple GI issues. She apparently is legally blind in the left eye because of diabetes. She had one time orthostatic hypotension. She has diabetic neuropathy, gastroparesis, depression, osteoporosis, macular degeneration, rheumatic fever, tremors. The best I can tell the problem is going on for several weeks, but I am not sure whether it fits the pattern of acute symptoms then stabilizing or whether she has symptoms, which are progressively becoming worse. This was a relevant 14-point review of system. PAST MEDICAL HISTORY: Positive for psychiatric problems and seizure. FAMILY HISTORY: Unremarkable. SOCIAL HISTORY: She does not drink alcohol. PHYSICAL EXAMINATION: NEUROLOGIC: The patient's examination indicate she does talk. When I asked her what month it is, she says it is actually February, but they make it looks like September, but then she told me the date, very difficult to tell because of her maneuvering nature. She has trouble with the left eyes examination. Neuromuscular examination was limited. Cranial nerve examination was also attempted, that was limited. She did reasonably well with position sense. Reflexes looks intact. [facility] [address] [place] [address] CONSULTATION Name: SYDNEY STEIBNERG Room #: 52-B ADM IN .R.#: [id number] Admission: 09/24/21 Attend Phys: Michael Melchor, Discharge: Date of : 55 Report #: [id number] CARDIAC: Unremarkable. No respiratory difficulty was noticed. VITAL SIGNS: Blood pressure is 110/79, respirations 19, pulse is 78, temperature is 97.8. LABORATORY DATA: Blood sugar was 175. Her last BUN and GFR was on 09/24 and it was unremarkable. IMPRESSION: This patient has a large lesion in the left cerebral hemisphere. Statistically, it is most likely stroke, but we have to confirm that by doing a contrast study. I discussed that with the patient first and subsequently with her . I discussed indication, potential complication and alternative of IV contrast, especially the allergic reaction and irreversible dermatological reaction. They want to proceed with that. We will do that and it will tell us whether it is a stroke and what the duration of that is and then we can decide about further management in this patient, especially how much workup to do as an inpatient and how much as an outpatient. I spent more than 50 minutes of time taking care of this patient today and majority was spent counseling and coordinating, first the patient and subsequently the patient's . Addendum Admitting psychiatrist sent me a text askin me to sign off. I will do that. <ELECTRONICALLY SIGNED> By: Gary Allison MD 10/01/211999 1853 [id number] Gary Allison MD /nt
[2021-10-01 20:04] VITALS: BP 130/45
[2021-10-01 21:08] LABS: SYPHILIS AB Non Reactive (Non Reactive)
--- NOTE | 2021-10-02 02:53 | NUR ---
PATIENT IS BED AT BEGINNING OF SHIFT, AWOKE EASILY FOR HS MEDICATION, IS CALM AND COOPERATIVE WITH NO NEGATIVE BEHAVIORS.
[2021-10-02 10:24] VITALS: BP 126/72
[2021-10-02 15:47] VITALS: BP 126/72
--- NOTE | 2021-10-02 18:02 | NUR ---
Assumed care from overnight shift this am. Client was in activity area eating breakfast. Client presented calm and pleasant. Client denied any depression and anxiety at this time. Client denied any visual and audio hallucinations as well. Client denied si/hi at this time. Bowel sounds were present and lung sounds clear. Client stated that she was going to "take a rest" after breakfast, and requested bandage change then. Client was assisted into bed and came out for lunch. After lunch, client went back to her room, and her dressing was changed. Client denied any pain at this time. Client has been compliant with all of her medications today. No further concerns.
--- NOTE | 2021-10-02 19:14 | NUR ---
NURSES NOTES/ASSESSMENTS REVIEWED BY ADEEL MCKENNA
[2021-10-02 19:54] VITALS: BP 122/69
--- NOTE | 2021-10-03 03:38 | NUR ---
Assumed care of patient at 1900. Pt calm et cooperative this shift. VSWNL. Health assessment with no abnormalities noted at present time. Pt took medications whole without difficulty. Ambulates with assistance of w/c. Pt denies SI/HI/AVH at present time. Currently resting in bed with eyes closed. Will continue to monitor per unit protocol.
[2021-10-03 10:00] VITALS: BP 150/78
--- NOTE | 2021-10-03 11:07 | NUR ---
10-03-2021--699--Attempted to fax information (packet) to Niki Aguilar. Fax # incorrect. Call to Samra hart to get the correct fax number. Tried to fax two times with "no response. Call to Michelle Kurtz to determinvail health hospital placement at [facility]. Not in Message left with SW number to return call today to tomorrow.
[2021-10-03 12:27] VITALS: BP 150/78
--- NOTE | 2021-10-03 13:06 | NUR ---
RESUMMED CARE FROM OVERNIGHT SHIFT THIS AM, PATIENT SITTING IN DAY ROOM QUIET. PATIENT ALERT ORIENTED TIMES 3-4 PATIENT DENIES SI/HI/AH/VH AT PRESENT. PATIENT ATE BREAKFAST TOOK MEDICATION WITHOUT INCIDENCE; PATIENTS ABDOMEN SOFT BOWEL SOUNDS PRESENT. PATIENTS LUNGS CLEAR PATIENT CALM COOPERATIVE MORE ACCEPTING THAT SHE CANNOT GO HOME. PATIENTS ULCER ON RT HEEL HEALING WELL BANDAGE CHANGED. WILL CONTINUE TO MONITOR PATIENT FOR SAFETY AND BEHAVIORS.
[2021-10-03 20:47] VITALS: BP 109/60
--- NOTE | 2021-10-04 01:53 | NUR ---
IRIS CARE WAS RESUMED AT 1900. SHE WAS IN HER ROOM RESTING IN BED. ABLE TO VERBALIZE CONCERN.SHE AMBULATES AND TOOK HER MEDS WHOLE. SHE DENIES PAINS/SI/AVH AND HI. SHE IS CONTINIET OF BOWEL AND BLADDER AND ON FALL PRECAUTION. SHE HAS A CALL TORRES A HER BED SIDE. BED IS LOW, LOCKED AND ALARMED. CONTINUE CARE AND MONITOR.
[2021-10-04 08:00] VITALS: BP 130/76
[2021-10-04 12:17] VITALS: BP 130/76
--- NOTE | 2021-10-04 12:43 | NUR ---
RESUMMED CARE FROM OVERNIGHT SHIFT THIS AM, PATIENT IN ROOM RESTING QUIET. PATIENT ALERT ORIENTED HARSHA 3-4 AT TIMES SHE IS CALM COOPERATIVE. PATIENT DENIES SI/HI/AH/VH AT PRESENT. PATIENT ATE BREAKFAST TOOK MEDICATION WITHOUT INCIDENCE. PATIENTS ABDOMEN SOFT BOWEL SOUNDS PRESENT, PATIENTS LUNGS CLEAR. PATIENT HAS NOT HAD ANY BEHAVIORS SHE DOES GO TO GROUPS AND HAS MINIMAL PARTICIPATION. PATIENT IS DISCHARGING TODAY TO A [facility]; REPORT CALLED TO FACILITY. PATIENTS BELONGINGS AND DISCHARGE INFORMATION SENT WITH PATIENT. WILL CONTINUE TO MONITOR PATIENT FOR SAFETY AND BEHAVIORS UNTIL SHE LEAVES.
[2021-10-04] MEDS ORDERED: ASPIRIN EC325 M1 PO (13:21)
[2021-10-04] MEDS ORDERED: LIPITOR 20 MG T20 M1 PO (13:21)
[2021-10-04] MEDS ORDERED: NEURONTIN 400400 M1 PO (13:22)
[2021-10-04] MEDS ORDERED: CYMBALTA30 MG PO (13:23)
[2021-10-04] MEDS ORDERED: TRAZODONE HCL100 MG PO (13:23)
[2021-10-04] MEDS ORDERED: CALTRATE-600 W1 EACH PO (13:24)
[2021-10-04] MEDS ORDERED: PROTONIX40 M2 PO (13:25)
[2021-10-04] MEDS ORDERED: TRADJENTA5 MG PO (13:26)
[2021-10-04] MEDS ORDERED: OXYBUTYNIN 5 MG5 M1 PO (13:26)
[2021-10-04] MEDS ORDERED: HOME MEDICATION SUBQ (13:27)
[2021-10-04] MEDS ORDERED: VITAMIN D325 MC2 PO (13:27)
--- NOTE | 2021-10-04 14:26 | NUR ---
KEIRA spoke with Michelle at [facility]. Michelle informed that [facility] can accept the Pt today. Discharge was set for 10/04/2021 @ 1500. [facility] will transport. KEIRA did speak to the Pt's DPOA concerning the matter.
--- NOTE | 2021-10-05 22:03 | D ---
[facility] [place] [address] DISCHARGE SUMMARY Name: SYDNEY STEINBERG Room #: 522B-B DIS IN M.R.#: [id number] Admission: 09/24/21 Attend Phys: Michael Melchor DO Discharge: 10/04/21 Date of : 55 Report #: [id number] THIS REPORT FOR: cc: Keyla Arguello Beth RNP Kerstein, Andrew H. DO ~ DATE OF SERVICE: 10/04/2021 INPATIENT PSYCHIATRIC DISCHARGE SUMMARY ATTENDING PSYCHIATRIST: Michael Melchor D.O. SKILLED LABOR: Michael Terry M.D. WOUND SAP TRAINER: Dr. Thor Perez. DISCHARGE DIAGNOSES: Major neurocognitive disorder without behavioral disturbance, generalized weakness, deconditioning and debility. Also, the patient has history of major depressive disorder, at least single episode, severe degree. The patient is discharging to [facility] for initial fci care. Psychiatric and medical care per receiving facility. DISCHARGE ACTIVITIES: Activity level is wheelchair use. She can walk short distances. She should be skilled at [facility] and therpaists are recommending physical and occupational therapy at nursing facility. She is independent while in the bathroom and with bathing. The patient is on diet coronado, regular diet. She does get Glucerna 3 times a day with meals. She is taking Carafate 1 gram oral 4 times daily. Consider discontinuation in 2 weeks. DISCHARGE MEDICATIONS: Additionally atorvastatin 20 mg at 0900 hours for hyperlipidemia, aspirin 325 mg oral daily for prevention of further strokes, gabapentin 400 mg oral 3 times a day for neuropathic pain, duloxetine 90 mg oral daily for depression and pain, trazodone 100 mg oral at bedtime for sleep, calcium carbonate with vitamin D3 of 500 mg oral 3 times a day supplementation, pantoprazole 40 mg oral daily at 0700 hours, Tradjenta 5 mg oral daily for diabetes mellitus, oxybutynin 5 mg oral 3 times a day for urinary incontinence, ergocalciferol 5000 international units oral daily for supplementation. She also takes specialty injectable osteoporosis medication, which was provided by her, I do not have exact record of. Also test this admission, CT scan was done as part of her dementia workup and it showed an area of edema involving anterior parietal lobe into the frontal lobe measuring about 4 cm in greatest direction labeled as a subacute infarct. The MRI was done to confirm this. Dr. Allison was consulted for advice on the subacute infarct. [address] [address] DISCHARGE SUMMARY Name: SYDNEY STEINBERG Room #: 52-B [facility] IN .R.#: [id number] Admission: 09/24/21 Attend Phys: Michael Melchor, Discharge: 10/04/21 Date of : 55 Report #: [id number] The patient has relative contraindications to further intervention like an endarterectomy and also systemic anticoagulation, so a carotid Doppler and transthoracic echo with bubble study were deferred. LABORATORY DATA: Other laboratories this admission, this visit hematology done on 09/24, white count 11.2, H and H of 11.5 and 35.9, platelet count 329. Chemistries this visit. Sodium 142, potassium 4.0, chloride 106, bicarbonate 30, anion gap 6, BUN 32, creatinine 0.8, estimated GFR 72, glucose was variable due to diabetes. A1c 7.0. Other laboratories this admission including lipids were all grossly normal. B12 level 721. Vitamin D level 2198. TSH this admission was not done, though in February 2021 was 1.065. Urinalysis this admission showed trace ketones, otherwise grossly normal. Micro this admission was not done. COVID-19 serology this admission was negative on the 09/27 and 09/29. Syphilis serology this admission was nonreactive. Folate this admission was low at 6.9. No toxicology was done this admission, that was done in an outside hospital. Electrocardiogram last done on 09/29 shows sinus rhythm, QTc 427, QT 395, Q interval 131 milliseconds and interval rate of 70. REASON FOR ADMISSION: A 65-year-old female admitted due to reported suicidal ideation. She reportedly called 911 herself, had been living at home with her , has significant physical problems including difficulty getting out of bed. HOSPITAL COURSE: The patient was admitted to Geriatric Psychiatry Unit. The patient has a number of issues including significant vision problems. The patient had difficulty on the pills as well as with physical therapy. Proceeded with dementia workup on her. She scored 12/24, so 50% of non viusal items she had difficulties with. We had several telephone conferences with her , Semaj, who is unable to take care of the patient ad sanket, tertiary placement was recommended, enacted the patient's DPOA, severe cognitive deficits and poor judgment. Her insurance denied the patient's continued stay, so we had to look for her fci placement. PHYSICAL EXAMINATION: VITAL SIGNS: Temperature 36.4 on day of discharge, pulse 77, respirations 18, BP 138/78, O2 saturation is 96-98%. MUSCULOSKELETAL: Ambulates in wheelchair. Gait not tested. Unkempt appearance. MENTAL STATUS EXAMINATION: This is a well-developed, ill-appearing, kyphotic, female, in wheelchair. Attention limited. Concentration limited. Speech normal in rate. Thought process, goal oriented. Thought content focused on discharge. Denied SI, HI, auditory or visual type hallucinations. Mood [facility] [address] [place] [address] DISCHARGE SUMMARY Name: SYDNEY STEINBERG Room #: 522B-B DIS IN M.R.#: [id number] Admission: 09/24/21 Attend Phys: Michael Melchor DO Discharge: 10/04/21 Date of : 55 Report #: [id number] okay. Affect congruent, constricted, diminished range. Memory not formally tested on day of discharge. Insight and judgment limited. Fund of knowledge average range. Prognosis for this patient is guarded given the age of 65, with stroke, dementia and debility, limited social support. She is a no code at time of discharge. No known allergies. The wounds at the time of discharge were venous type ulcer at lateral ankle. We recommend [employer] border film and p.r.n. offload as able. She did have a recent C and S with pseudomonas. <ELECTRONICALLY SIGNED> By: Michael Melchor DO 10/05/212202 20 27 Michael Melchor DO /nt
== END 2021-10-04 15:44 | DRG 881 ==
LOC: SBH
PROVIDERS: Psychiatry & Neurology Neuromuscular Medicine; ADMIT Psychiatry & Neurology Psychiatry; ATTEND Psychiatry & Neurology Psychiatry
DX: F32.9 Major depressive disorder, single episode, unspecified (principal); F01.50 Vascular dementia, unspecified severity, without behavioral disturbance, psychotic disturbance, mood disturbance, and anxiety; E43 Unspecified severe protein-calorie malnutrition; Z93.1 Gastrostomy status; L97.319 Non-pressure chronic ulcer of right ankle with unspecified severity; Z68.1 Body mass index [BMI] 19.9 or less, adult; F41.9 Anxiety disorder, unspecified; I10 Essential (primary) hypertension; Z20.822 Contact with and (suspected) exposure to COVID-19; E11.42 Type 2 diabetes mellitus with diabetic polyneuropathy; M06.9 Rheumatoid arthritis, unspecified; K21.9 Gastro-esophageal reflux disease without esophagitis; M81.0 Age-related osteoporosis without current pathological fracture; R53.81 Other malaise; S91.301A Unspecified open wound, right foot, initial encounter; Z79.899 Other long term (current) drug therapy; X58.XXXA Exposure to other specified factors, initial encounter; Y93.89 Activity, other specified; Z90.81 Acquired absence of spleen; Z87.81 Personal history of (healed) traumatic fracture; Z86.14 Personal history of Methicillin resistant Staphylococcus aureus infection; Y92.89 Other specified places as the place of occurrence of the external cause; Y99.8 Other external cause status; Z86.73 Personal history of transient ischemic attack (TIA), and cerebral infarction without residual deficits
CPT/HCPCS: 10880

== ENCOUNTER 2021-10-26 19:30 | Emergency (ER) | payer OTHER ==
[~2021-10-26] VITALS: Ht 172.7 cm; Wt 55.8 kg
--- NOTE | ~2021-10-26 | EMS ---
[facility] [address] [place] [address] EMS Patient Care Report Name: SYDNEY STEINBERG Room #: DEP JORY Mullen#: [id number] Admission: 10/26/21 Attend Phys: Discharge: 10/27/21 Date of : 55 Report #: [id number] THIS REPORT FOR: //name// Report Transmitted: 10/29/2021 14:09 EMS Care Summary [place], [place] Incident [id number] @ 10/26/2021 18:28 Incident Location [id number] [place] [address] Patient SYDNEY STEINBERG Female, 65 Years 1955 Patient Address [id number] [place] [address] Patient History Diabetes,Hypertension (HTN),Stroke/CVA,Gastric Ulcer,Rheumatoid Arthritis,Insomnia, Patient Allergies No known allergies, Patient Medications Insulin, Hydrocodone, Chief Complaint ABDOMINAL PAIN Disposition Transported No Lights/[place] Reason Abdominal Pain/Problems Transported To [facility] Narrative ARRIVED ON THE SCENE TO FIND PATIENT CONSCIOUS AND BREATHING, SITTING IN BED IN THE BACK BEDROOM. PATIENTS ON SCENE STATES THAT PATIENT IS COMPLAINING OF ABDOMINAL PAIN WHICH IS A CHRONIC PROBLEM FOR HER. STATES THAT [facility] [address] [place] [address] EMS Patient Care Report Name: SYDNEY STEINBERG Room #: DEP ER Paz#: [id number] Admission: 10/26/21 Attend Phys: Discharge: 10/27/21 Date of : 55 Report #: [id number] PATIENT HAS HISTORY OF GASTRIC LAPBAND SURGERY, WHICH RESULTED IN HER HAVING CHRONIC GASTRIC ISSUES. STATES THAT PATIENT DOES HAVE DEMENTIA, AND HE IS HER DPOA. STATES THAT PATIENT USUALLY GOES TO [facility] FOR CARE. PATIENT STATES THAT HER STOMACH JUST FEELS VERY SORE. PATIENT DENIES NAUSEA OR VOMITING. PATIENT STATES THAT IT IS DIFFICULT FOR HER TO EAT WITH HER STOMACH HURTING. PATIENT MOVED OT STAIRCHAIR AND CARRIED OUT OF THE RESIDENCE. PATIENT THEN MOVED TO STRETCHER, SECURED AND LOADED INTO AMBULANCE. PATIENT DENIES CHEST PAIN, PRESSURE OR HEAVINESS. PATIENT DENIES SHORTNESS OF BREATH. PATIENT DENIES BLURRED VISION, DIZZINESS OR HEADACHE. PATIENT TRANSPORTED TO [facility] WITHOUT INCIDENT. PATIENT CARE REPORT GIVEN TO NURSING STAFF. M551 RETURNED TO SERVICE. Initial Vitals @19:15P: 87,R: 16,BP: 177/102,SpO2: 98, @18:55P: 85,R: 16,BP: 176/108,CO: 5,SpO2: 98, @18:45P: 92,R: 16,BP: 168/96,Pain: 5/10,GCS: 14,Glucose: 194,SpO2: 99,Revised Trauma: 12, Assessments @18:45MENTAL:Place Oriented,Person Oriented,Confused,SKIN:HEENT:Head/Face: No Abnormalities,Neck/Airway: No Abnormalities,LUNG SOUNDS:General: Other,ABDOMEN:General: Other,PELVIS//GI:Incontinence,EXTREMITIES:Capillary Refill: Left Upper: < 2 Sec,Capillary Refill: Right Upper: < 2 Sec,Right Leg: Weakness,Left Leg: Weakness,Left Arm: No Abnormalities,Right Arm: No Abnormalities,PULSE:Radial: 2+ Normal,NEURO:No Abnormalities, Impression Abdominal Pain Procedures @18:45 ALS Assessment Response: UnchangedSucceeded @19:11 Stairchair Response: Unchanged @19:15 Stretcher Response: Unchanged Timeline 18:24,Call Received 18:24,Dispatch Notified 18:28,Dispatched 18:28,En Route 18:41,On Scene 18:45,At Patient 18:45,ALS Assessment,Response: UnchangedSucceeded, 18:45,BP: 168/96 M,PULSE: 92,RR: 16 R,SPO2: 99 Ox,ETCO2: ,B,PAIN: 5,GCS: 14, 18:55,BP: 176/108 M,PULSE: 85,RR: 16 R,SPO2: 98 Ox,ETCO2: ,BG: ,PAIN: ,GCS: , [address] [place] [address] EMS Patient Care Report Name: SYDNEY STEINBERG Room #: DEP JORY Mullen#: [id number] Admission: 10/26/21 Attend Phys: Discharge: 10/27/21 Date of : 55 Report #: [id number] 19:11,Stairchair,Response: Unchanged 19:15,BP: 177/102 M,PULSE: 87,RR: 16 R,SPO2: 98 Ox,ETCO2: ,BG: ,PAIN: ,GCS: , 19:15,Stretcher,Response: Unchanged 19:18,Depart Scene 19:25,At Destination 19:46,Call Closed Disclaimer v1.1 Copyright 2020 [employer] This EMS Care Summary contains data elements from the applicable legal record (which may be displayed differently). It is designed to provide pertinent information for the following purposes: continuity of care, clinical quality, and state data reporting. The complete legal record is available to ED staff and administrators of the receiving hospital in [employer]'s Patient Tracker. All data is provided "as is."
[~2021-10-26 19:30] MED LIST changes: +ASPIRIN EC325 M1 PO; +HOME MEDICATION SUBQ; +LIPITOR 20 MG T20 M1 PO; +NEURONTIN 400400 M1 PO; +OXYBUTYNIN 5 MG5 M1 PO; +TRAZODONE HCL100 MG PO; +VITAMIN D325 MC2 PO
[2021-10-26 20:05] LABS: HEMATOCRIT 40.5 % (37.0-47.0); HEMOGLOBIN 13.5 gm/dL (12.0-15.0); MCH 31.5 pg (26.0-34.0); MCHC 33.3 g/dL (28.0-37.0); MCV 94.8 fL (80.0-100.0); PLATELET COUNT 285 thou/uL (150-400); RBC 4.27 mil/uL (4.20-5.00); RDW 14.9 % (10.5-14.5); WBC 10.4 thou/uL (4.0-11.0)
[2021-10-26 20:11] LABS: CALCIUM 9.5 mg/dL (8.5-10.1); CREATININE 0.9 mg/dL (0.6-1.0); POTASSIUM 4.8 mmol/L (3.5-5.1)
[2021-10-26 20:26] LABS: ALBUMIN 2.8 g/dL (3.4-5.0); TOTAL BILIRUBIN 0.5 mg/dL (0.2-1.0); TOTAL PROTEIN 7.4 g/dL (6.4-8.2)
[2021-10-26 21:26] LABS: ABSOLUTE NEUTROPHILS 6.6 thou/uL (1.4-8.2); ATYPICAL LYMPHS 1 %
[2021-10-26 21:45] LABS: URINE BILIRUBIN NEGATIVE (Negative); URINE BLOOD 1+ (Negative); URINE CLARITY SL CLOUDY; URINE COLOR YELLOW; URINE GLUCOSE-RANDOM* TRACE (Negative); URINE KETONES NEGATIVE (Negative); URINE NITRITE-REFLEX NEGATIVE (Negative); URINE PROTEIN (DIPSTICK) NEGATIVE (Negative); URINE UROBILINOGEN 0.2 E.U./dl (0.2-1.0)
[2021-10-26 21:46] LABS: URINE LEUKOCYTES-REFLEX 3+ (Negative)
[2021-10-26 21:59] LABS: BACTERIA-REFLEX >30 Many /HPF (None Seen); CASTS None Seen /LPF (None Seen); CRYSTALS None Seen /LPF (None Seen); SQUAMOUS 0-3 Few /LPF (0-3); URINE RBC 1-2 Rare /HPF (NONE SEEN); URINE WBC-REFLEX >25 Many /HPF (0-5)
[2021-10-27 05:00] VITALS: BP 128/95
--- NOTE | 2021-10-28 07:13 | EKG ---
[place] [address] [facility] [place] [address] ELECTROCARDIOGRAM REPORT Name: SYDNEY STEINBERG [facility] [id number] Admission: 10/26/21 Attend Phys: Discharge: 10/27/21 Date of : 55 Report #: [id number] [facility] ED Test Date: 2021-10-26 Test Time: 19:44:16 Pat Name: SYDNEY STEINBERG Department: Room: Gender: F Loss Control Manager: [email or web address] : 1955 Requested By: Heather Salmon Order Number: [id number] MD: Semaj Mercedes Measurements Intervals Dawes Rate: 70 P: 51 SC: 164 QRS: 50 QRSD: 93 T: 67 QT: 413 QTc: 446 Interpretive Statements Sinus rhythm Compared to ECG 09/29/2021 16:02:24 Atrial premature complex(es) now present Left ventricular hypertrophy no longer present Electronically Signed On 10-28-2021 7:13:30 [employer] by Semaj Mercedes [email or web address] <ELECTRONICALLY SIGNED> By: Semaj Mercedes MD, [facility] 10/28/2113 43 43 Semaj Mercedes MD, FACC /EPI
[2021-10-28] MEDS ORDERED: CEPHALEXIN500 MG PO (10:41)
[2021-10-28] MEDS ORDERED: CYMBALTA30 MG PO (10:42)
[2021-10-28] MEDS ORDERED: PROTONIX40 M2 PO (10:43)
[2021-10-28] MEDS ORDERED: LEVOFLOXACIN500 MG PO (16:10)
== END 2021-10-27 05:37 ==
LOC: ER 19:30
PROVIDERS: Emergency Medicine
DX: N39.0 Urinary tract infection, site not specified (principal); R10.84 Generalized abdominal pain; R53.1 Weakness; K21.9 Gastro-esophageal reflux disease without esophagitis; I10 Essential (primary) hypertension; E11.9 Type 2 diabetes mellitus without complications; Z98.890 Other specified postprocedural states; Z79.82 Long term (current) use of aspirin; Z79.899 Other long term (current) drug therapy; Z79.891 Long term (current) use of opiate analgesic

== ENCOUNTER 2021-10-26 22:31 | Inpatient (IN) | payer OTHER ==
[~2021-10-26] VITALS: Ht 167.6 cm; Wt 50.8 kg
[2021-10-27 05:30] VITALS: BP 118/67
--- NOTE | 2021-10-27 06:21 | NUR ---
PATIENT ADMITTED TO [facility] UN[facility] FROM ED WITH SI AND UTI. PATIENT CAME BY . PATIENT A/0X3. SHE DENIES SI ONCE GETTING TO THE FLOOR. SHE STATES THAT HER YELLED AT HER ABOUT HER DIABETES AND CONTINUES TO BLAME HER BECAUSE SHE ATE CANDY [employer] SODA AND STATES THAT IS WHAT CAUSED HER TO BE DIABETIC. PATIENT WAS INPATIENT WITH [facility] WITHIN LAST 60 DAYS. SHE HAD BEEN SENT TO [facility] FOR LTC AND BECAME SO DIFFICULT THAT THE FACILITY KICKED HER OUT. SHE HAS BEEN HOME FOR 4 DAYS. HER IS DPOA. HE IS WORKING WITH [facility] TO GET HER ADMITTED. AWAITING FOR APPROVAL. PATIENT CAME IN WITH C/O ABDOMINAL PAIN. UTI FOUND. PATIENT WITH NAUSEA. PATIENT HISTORY OF HTN,GERD,DM,GASTRPARESIS, MACULAR DEGENERATION LEFT EYE. SHE IS ASSIST X 1-2. VERY WEAK. HAD GASTRIC BYPASS IN 1989 AND DOES NOT EAT. STATES SHE LAST ATE YESTERDAY AND REFUSING DRINK OR FOOD AT THIS TIME. VSS. PATIENT DOES HAVE A WOUND ULCER ON RIGHT OUTER ANKLE. IT IS RED AROUND THE EDGES. APPEARS TO HAVE SOME NECROSIS TO BILATERAL TOES WITH REDNESS ALSO. PATIENT ASSESSMENT DONE AND ORDERS RECEIVED AND IMPLEMENTED. PATIENT WANTED TO SLEEP SOME. PATIENT DID SIGN HERSELF IN. BED IN LOW POSITION AND BED ALARM IS ON. ROUNTINE ROUNDS TO ASSESS SAFETY AND STATUS OF PATIENT.
--- NOTE | 2021-10-27 07:29 | NUR ---
CALLED AND SPOKE TO PATIENT'S SPOUSE AND DEANNE PEARSON. NOTIFIED HIM THAT PATIENT SIGNED HERSELF IN VOLUNTARILY AND WAS ADMITTED TO [facility]. GAVE PATIENT CODE TO DPOA AND PHONE NUMBER TO UNIT. CLARIFICATION MADE BY MICHEL STATING THAT PATIENT WAS NOT KICKED OUT OF [facility] 4 DAYS AGO BUT THAT HIM AND HIS SON REMOVED HER FROM THE FACILITY BECAUSE IT WAS NOT A CLEAN FACILITY AND HAD BEEN CITED FOR MANY THINGS. THEY DID NOT FEEL SHE WAS GETTING GOOD CARE. HE IS WAITING TO HEAR FROM IGNITE ON WHETHER PATIENT WILL BE ABLE TO MOVE FROM HOME TO THERE. HE WAS EAGER TO FIND OUT HOW LONG SHE WILL BE HERE. TOLD HIM THAT DR CHANG WILL SEE HER TODAY AND MAY BE ABLE TO GIVE HIM AN IDEA AFTER TALKING WITH HER. PATIENT AWOKE TO TAKE AM MEDS AND WAS PLEASANT AND COOPERATIVE. SHE STATES THAT SHE WAS FINALLY GETTING SOME GOOD SLEEP.
[2021-10-27 09:54] LABS: CHOLESTEROL 107 mg/dL (<200); HDL CHOLESTEROL 59 mg/dL (>40); LDL CHOLESTEROL 39 mg/dL (<100); TC:HDL 1.8 Ratio (Not establshd); TRIGLYCERIDE 48 mg/dL (<150); VLDL 10 mg/dL (<40)
[2021-10-27 12:32] VITALS: BP 144/85
[2021-10-27 13:48] VITALS: BP 144/85
--- NOTE | 2021-10-27 15:36 | NUR ---
RESUMMED CARE FROM OVERNIGHT SHIFT THIS AM, PATIENT IN ROOM LYIMG QUIET. PATIENT ATE BREAKFAST TOOK MEDICATION WITHOUT INCIDENCE; PATIENT DENIES SI/HI/AH/VH AT PRESENT. PATIENTS ABDOMEN SOFT BOWEL SOUNDS PRESENT, PATIENTS LUNGS CLEAR. PATIENT HAS A OPEN SORE ON RT HEEL OF FOOT AND BIG TOE HAS NECROTIC TISSUE ON FOOT. WOUND CARE CAME DOWN TO LOOK AT WOUND AND PUT ORDERS ON WHAT TO DO FOR THE WOUND. PATIENT CALM COOPERATIVE CAME TO GROUP MINIMAL PARTICIPATION. PATIENT HAS NOT DISPLAYED ANY BEHAVIORS WILL CONTINUE TO MONTOR PATIENT FOR SAFETY AND BEHAVIORS.
--- NOTE | 2021-10-27 17:27 | NUR ---
KEIRA and Dr. Davis met with the Pt concerning this admission. Pt denied SI/HI. Pt stated her was upset with her due to the Pt's eating habits and her diabetes. Pt stated she did not want to stay at [facility] because the other residents used "horrible language". Also that she did not care for the staff. Pt believes she is able to care for her self in the home. Pt reported recieving 20 hrs a week of attendant care and 45 mins 3x per week of home health services. There was discussing about [facility]SS hotline being made due to the Pt not recieving the proper care in the home and DPOA not willing/able to get the proper care for the Pt. Which is a factor in Pt being readmitted. Pt was informed that at her last stay her DPOA was enacted. Also that Pt is in need of a higher level of care than what she currently recieves at home. KEIRA and Dr. Davis tried to call the Pt's DPOA. However the call went to and a message was left requesting a call back. As of this note DPOA has not returned the call.
[2021-10-27 19:26] VITALS: BP 130/79
[2021-10-27 19:32] LABS: ABSOLUTE NEUTROPHILS 6.8 thou/uL (1.4-8.2); BASOPHILS 0.6 % (0.0-2.0); EOSINOPHILS 0.9 % (0.0-3.0); HEMATOCRIT 41.3 % (37.0-47.0); HEMOGLOBIN 13.5 gm/dL (12.0-15.0); LYMPHOCYTES 16.5 % (24.0-44.0); MCH 31.2 pg (26.0-34.0); MCHC 32.6 g/dL (28.0-37.0); MCV 95.6 fL (80.0-100.0); MONOCYTES 5.8 % (1.0-8.0); PLATELET COUNT 265 thou/uL (150-400); POLYS 76.2 % (36.0-66.0); RBC 4.32 mil/uL (4.20-5.00); RDW 15.1 % (10.5-14.5); WBC 8.9 thou/uL (4.0-11.0)
[2021-10-27 19:43] LABS: ALBUMIN 2.9 g/dL (3.4-5.0); CALCIUM 9.3 mg/dL (8.5-10.1); CREATININE 1.3 mg/dL (0.6-1.0); POTASSIUM 4.7 mmol/L (3.5-5.1); TOTAL BILIRUBIN 0.3 mg/dL (0.2-1.0); TOTAL PROTEIN 7.4 g/dL (6.4-8.2)
[2021-10-27 19:45] VITALS: BP 130/79
--- NOTE | 2021-10-27 23:38 | NUR ---
10/27/21 1900 VSS A&O X2. ADMITTED FOR SI, CURRENTLY DENIES SUICIDIAL IDEATION AND HOMOCIDAL IDEATION. FSBS 218, NO INSULIN ORDERED. WOUND ON RIGHT ANKLE DRESSING C/D/I. COOPERATED WITH ASSESSMENT AND COMPLIANT WITH MEDICAITONS, TAKING MEDS WHOLE WITH THIN WATER. HRRR, LUNGS CTA BILAT, HIGH FALL RISK PROTOCOL IN PLACE. WILL CONTINUE TO MONITOR FOR SAFETY AND COMOFRT PER UNIT PROTOCOL.
[2021-10-28 04:06] LABS: GLYCOHEMOGLOBIN (HGB A1C) 7.2 % (4.8-5.6)
[2021-10-28 07:03] VITALS: BP 103/65
--- NOTE | 2021-10-28 09:08 | H ---
[facility] [place] [address] HISTORY AND PHYSICAL Name: SYDNEY FOLEY Room #: 520A-A ADM IN ..#: [id number] Admission: 10/27/21 Attend Phys: Michael Melchor DO Discharge: Date of : 55 Report #: [id number] THIS REPORT FOR: cc: Keyla Arguello Beth RNP Kerstein, Andrew H. DO ~ DATE OF SERVICE: 10/27/2021 INPATIENT PSYCHIATRIC EVALUATION ATTENDING PSYCHIATRIST: Michael Melchor D.O. RANGE AIDE: Ita Rolon and Gary Haq MD and his hospitalist team. REASON FOR ADMISSION: Suicidal ideation. SOURCES OF INFORMATION: Interview with the patient, Emergency Room records. I called and left a message for her and DPOA, Semaj Foley heard back from them at this time. CHIEF COMPLAINT: Abdominal pain in the ER. HISTORY OF PRESENT ILLNESS: This is a 65-year-old disabled, demented female known to me from prior admission in 09/2021. The patient presented to the ER yesterday with complaint of abdominal pain associated with nausea, anxiety and weakness. She has a history of gastric bypass. Also has a history of a recently discovered frontal lobe stroke. The patient later in her ER presentation admitted she was suicidal with thoughts of overdosing on medication, possible UTI was detected. The patient was given Rocephin in the ER. On interview, the patient admits this past Bry she left [facility] where she was for long-term care and returned to her home. She states she has a home healthcare worker 3 days a week for 45 minutes and refers to another care worker for up to 20 hours. The patient is stating that she is able to shower and bathe herself and does not require the level of care, I felt, she needed at the previous admission. I discussed with the patient and social services specialist present that I felt she would need the magnitude of attendant care of 12 hours a day, 7 days a week. The patient is in disagreement about this. The patient has a number of emotional psychosocial stressors including the relationship with her , inadequate peer support. I discussed with her, I do not know why her is not going to enforce enacted DPOA and require her to stay at long-term. There is little we can do once she is no longer suicidal. On the question of intent to end her life or harm herself, she denies suicidal ideation today. I discussed with her she would need to be on the unit at least [address] [address] HISTORY AND PHYSICAL Name: SYDNEY FOLEY Room #: 520A-A ADM IN ..#: [id number] Admission: 10/27/21 Attend Phys: Michael Melchor, Discharge: Date of : 55 Report #: [id number] 24 hours free of suicidal ideation; if this continued and with good behavior, she could potentially discharge on . PAST PSYCHIATRIC HISTORY: Prior to September, denied history of mental health treatment or admission. States she has been in medical admission several times, originally from [place], , who is from [place] after knowing him for little time, so therefore about 6 years of normal marriage. She has 1 son, Estiven who is not presently involved, 3 grandchildren that she feels close to. 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 After marriage, stayed home, raising children. No history of tobacco use. She used LSD in high school for about 6 months, tried LSD in senior year, but did not like it. Reports alcohol only socially. She says she rarely drinks now due to diabetes. FAMILY PSYCHIATRIC HISTORY: Father was a hoarder and sister had some "impulsive behaviors." ALLERGIES: No known allergies. REVIEW OF SYSTEMS: From ER: CONSTITUTIONAL: Denies fever, chills, malaise, or unexplained weight changes. EYES: Denies eye pain, visual change, or discharge. HENT: Denies hearing changes, ear drainage, ear infections, ear pain, neck pain or neck stiffness. RESPIRATORY: Denies cough, shortness of breath, hemoptysis, or respiratory distress. CARDIOVASCULAR: Denies chest pain, chest pain with exertion, or edema. GASTROINTESTINAL: Denies vomiting or diarrhea. GENITOURINARY: Denies burning, frequency or dysuria. MUSCULOSKELETAL: Denies back pain, joint pain, muscle weakness or myalgias. SKIN: Denies rash. NEUROLOGIC: Denies headache, loss of consciousness. PSYCHIATRIC: Positive SI. Otherwise, 10-point review of systems negative. HOME MEDICATIONS: Noted include aspirin, gabapentin, duloxetine, trazodone, pantoprazole, linagliptin, oxybutynin, hydrochloride. 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 Also additional medical history of dysphagia, history of right knee fracture, left ankle fracture. PAST SURGICAL HISTORY: Gastric bypass done in 1989. [facility] [address] [place] [address] HISTORY AND PHYSICAL Name: SYDNEY FOLEY Room #: 520A-A [facility] IN [facility]#: [id number] Admission: 10/27/21 Attend Phys: Michael Melchor, DO Discharge: Date of : 55 Report #: [id number] LABORATORY DATA: H and H 13.5 and 40.5, white count 10.4, platelet count 285. Chemistry this admission, sodium 141, potassium 4.8, chloride 107, bicarbonate 26, anion gap 8, BUN 21, creatinine 0.9, albumin still low at 2.8, bordering on severe malnutrition. B12 level in September was 721. Vitamin D slightly low at 21.8. Urinalysis this admission showed 1+ blood, 3+ leukocyte esterase, greater than 25 leukocytes, few other abnormalities. Microbiology this admission for some reason, urine culture was not triggered. In any event, COVID-19 serology was negative. PHYSICAL EXAMINATION: VITAL SIGNS: Today, temperature 36.3, pulse 90, respirations 19, BP 144/85, BMI 18.2, weight 51.029 kg, height 164 cm. MUSCULOSKELETAL: Frail, ill female, seated in wheelchair. MENTAL STATUS EXAMINATION: Well-developed, ill-appearing female appearing older than stated age. Attention fair. Concentration limited. Speech normal rate, rhythm and tone. Thought process: Linear and goal directed. Thought content: Focused on, I guess, going home. Denied suicidal ideations currently. Denied homicidal ideations. No auditory or visual tactile hallucinations. Memory not formally tested, known to be impaired. Insight limited. Judgment limited. Fund of knowledge, no greater than average. FORMULATION: A 65-year-old female presenting via EMS from home due to abdominal pain. Reports suicidal ideation, recently allowed to sign out from nursing facility despite her DPOA been enacted in a nursing facility, having been furnished with physician, documentation from her recent admission stipulating that she is incapacitated. DIAGNOSES: Major Neurocognitive Disorder, multifactorial, likely, but includes known cerebrovascular disease, unspecified depression, numerous medical comorbidities including urinary incontinence, neuropathic pain, possible urinary tract infection, gastroesophageal reflux disease. The patient is admitted voluntarily to [facility] in [facility]. Hospice is consulted, evaluated and stabilized. MEDICATIONS: Currently in the hospital, trazodone 100 mg p.o. at bedtime, oxybutynin 5 mg p.o. t.i.d., Tradjenta 5 mg p.o. daily, gabapentin 400 mg p.o. t.i.d., duloxetine 90 mg p.o. daily, cephalexin 500 mg p.o. b.i.d. per hospitalist, aspirin 325 mg p.o. daily, sucralfate 1 gram before meals and at bedtime, pantoprazole 40 mg p.o. daily, otherwise house PRNs. PLAN: We will continue to keep the patient safe, observe her mood. Given the unfortunate realities of her situation, we will likely proceed with discharge on [address] [address] HISTORY AND PHYSICAL Name: SYDNEY FOLEY Room #: 520A-A ADM IN M.R.#: [id number] Admission: 10/27/21 Attend Phys: Michael Melchor DO Discharge: Date of : 55 Report #: [id number] 10/28. I did advise the patient I am considering the hotline to [facility] as I am concerned that her is going to be able to make adequate support and supervision for her given the issues arising from previous admission. Time spent on this case is greater than 60 minutes, greater than 50% of time was for the records, coordination of care and counseling. stregnths: insured weaknesses: numerous, limited support, poor coping skills <ELECTRONICALLY SIGNED> By: Michael Melchor DO 10/28/21 0908 [id number] [id number] Michael Melchor DO /nt
[2021-10-28 09:39] VITALS: BP 103/65
[2021-10-28] MEDS ORDERED: CEPHALEXIN500 MG PO (10:41)
[2021-10-28] MEDS ORDERED: CYMBALTA30 MG PO (10:42)
[2021-10-28] MEDS ORDERED: PROTONIX40 M2 PO (10:43)
[2021-10-28 11:02] VITALS: BP 103/65
[2021-10-28 12:44] VITALS: BP 103/65
--- NOTE | 2021-10-28 12:50 | NUR ---
KEIRA and Dr. Davis spoke with The Pt's DPOA, Semaj concerning Pt leaving the half-way. Semaj stated it was due to the Pt not recieving therapy at the facility. Semaj stated the Pt became suicidal a few days after being back in the home. The care needs of the Pt were discussed. It was recommended for Pt to be in a LTC facility or caregivers in the home that are able to provide at min 12 hrs per day of care for the Pt. Semaj claimed he has been in contact with [facility] concerning admissions, however they have not contact him back with an approval. KEIRA informed that it would be important that issues with future facility be addressed and Pt not leave AMA. That Semaj would need to work with the facility to get the Pt moved to another facility and not just move the Pt back home espicially when Pt requires more care than Semaj is able to provide at this time. Semaj voiced understanding. Discharge was scheduled for 10/28/2021 @ 1300. Pt has a PCP appointment with Dr. Fine on 11/10/2021. Pt will be Discharge with home health. A referral was sent to [facility] to restart services
[2021-10-28 14:19] LABS: URINE BILIRUBIN NEGATIVE (Negative); URINE BLOOD NEGATIVE (Negative); URINE CLARITY SL CLOUDY; URINE COLOR YELLOW; URINE GLUCOSE-RANDOM* TRACE (Negative); URINE KETONES NEGATIVE (Negative); URINE LEUKOCYTES-REFLEX 2+ (Negative); URINE NITRITE-REFLEX POSITIVE (Negative); URINE PROTEIN (DIPSTICK) NEGATIVE (Negative); URINE UROBILINOGEN 0.2 E.U./dl (0.2-1.0)
[2021-10-28 14:36] LABS: CASTS None Seen /LPF (None Seen); SQUAMOUS 0-3 Few /LPF (0-3)
[2021-10-28 14:39] LABS: BACTERIA-REFLEX 1-9 Few /HPF (None Seen); CRYSTALS None Seen /LPF (None Seen); URINE RBC None Seen /HPF (NONE SEEN)
--- NOTE | 2021-10-28 15:52 | NUR ---
Alert and orientated X4. Calm and cooperative. Denies SI/HI. Was planning on discharge but cancelled by Dr. Melchor d/t labs. Ambulates with slightly unsteady gait, fall precautions in place. Reg HR auscultated. No s/o edema. Color pale pink with brisk capillary refill and palpable peripheral pulses. Minimal urine output today. Straight cath done, retrieved approximately 3 cc of clear urine. #22 jelco placed per R hand and NS 1000 cc hung and infusing at 250 cc/hr per order. Active bowel sounds over soft, rounded abdomen. Wound per R ankle cleaned with NS and drsg applied. Black lesion on toes painted with betadine. Currently in day room with 1:1 sitter at side. No s/o distress.
[2021-10-28] MEDS ORDERED: LEVOFLOXACIN500 MG PO (16:10)
[2021-10-28 17:35] VITALS: BP 131/91
[2021-10-28 19:00] VITALS: BP 138/68
--- NOTE | 2021-10-29 03:25 | NUR ---
10-28-21 CARE TRANSFERRED 1900 OBSERVED PT SITTING IN RECLINER IN DAY ROOM; OBSERVED OFFGOING RN D/C IV IN R.HAND. LATER PT AAOX4, VSS, RR EVEN AND NONLABORED ON RA, LUNGS CLEAR, HT RR, ABD SOFT/ACTIVE/NONTENDER. PT PLESANT, REMAINED CALM AND COOPEATIVE THROUGHOUT NURSING ASSESSMENT. LATER PT REFUSED ACCUCHECK. PT HAD NO DIFFICULTIES TAKING MEDICATION WHOLE WITH WATER. PT BED WAS ADJUSTED FOR COMFORT, PT WILL CONTINUE TO BE MONITOR PER [facility] PROTOCOL.
[2021-10-29 06:12] LABS: CREATININE 1.2 mg/dL (0.6-1.0); POTASSIUM 4.6 mmol/L (3.5-5.1)
--- NOTE | 2021-10-29 08:56 | NUR ---
10-29-2021--0806--Call from Home [facility] that provides services for patient. She wanted to know if the patient is still discharging today. I told her she is on the DC list and should DC at 1300. Will advise patient's SW of this call.
--- NOTE | 2021-10-29 11:12 | NUR ---
Pt is able to discharge today. Semaj will be able to pick the Pt up @ 1300. Pt will need to complete a walk-in intake with [facility] to establish psychiatric services. This information was included on the Pt's discharge documents. Also information given to the Pt's DPOASemaj.
--- NOTE | 2021-10-29 11:38 | NUR ---
Pt's appointment with Dr. Fine-PCP is 11/03/2021 @ 9am.
[2021-10-29 13:55] VITALS: BP 138/68
[2021-10-29 14:21] VITALS: BP 103/65; BP 138/68
--- NOTE | 2021-10-29 14:22 | NUR ---
Assumed pt care during this shift. Client discharged during this shift, and was in a calm and pleasant demeanor during discharge and prior to discharge. Client denied any depression and anxiety at this time. Client denied au/vi hallucinations as well. Client denied any suicidal or homicidal thought. Client breath sounds were clear. Bowel sounds active at this time with last BM 10/26 per client report, something she states is normal for her. Client was seen by wound consult for wound inspection. Wound on toes heeled. Wound at ankle still same size with clear and yellow drainage but healing. Pt education given on wound care, and pt provided for [facility] for wound care. Both pt and spouse educated on wound care. Client was given all of her belongings, and was discharged to home. picked up in front parking lot, with staff assist at 1300. No further concerns at this time. Pt given all discharge paperwork and belongings.
--- NOTE | 2021-10-30 11:01 | HC ---
[facility] [place] [address] CONSULTATION Name: SYDNEY STEINBERG Room #: 520A-A [facility] IN M.R.#: [id number] Admission: 10/27/21 Attend Phys: Michael Melchor DO Discharge: 10/29/21 Date of : 55 Report #: [id number] THIS REPORT FOR: cc: Keyla Arguello Beth RNP Althoff, Jeffrey R. MD ~ DATE OF SERVICE: 10/27/2021 CHIEF COMPLAINT: Ulceration to the right ankle and toes. HISTORY OF PRESENT ILLNESS: This is a 65-year-old female patient with whom I am familiar with a history of type 2 diabetes mellitus and hypertension and major depressive disorder, who had recently been in the hospital and then discharged to a long-term care facility. She was having possible suicidal ideation. She has been readmitted. I have been asked to see her with regard to wound care. She denies pain in the ankle or toes at this time, but thinks that she is abraded the toes at the correction. PAST MEDICAL HISTORY: Positive for urinary tract infection, generalized debility, hypertension, type 2 diabetes mellitus, hyperlipidemia and chronic venous type ulcerations to the lower extremities. MEDICATIONS: Carafate, aspirin, gabapentin, duloxetine, trazodone, pantoprazole, Tradjenta and oxybutynin. ALLERGIES: No known drug allergies. SOCIAL HISTORY: The patient has been living in a nursing care facility. Prior to that lived with her . No alcohol or tobacco use. FAMILY HISTORY: Noncontributory. REVIEW OF SYSTEMS: CONSTITUTIONAL: The patient denies fever, chills or weight loss. NEUROLOGICAL: The patient denies focal weakness, numbness, tingling. EYES: The patient denies visual changes, redness or drainage. ENT: The patient denies earache, nasal drainage, sore throat. CARDIOVASCULAR: The patient denies chest pain, palpitations, diaphoresis. PULMONARY: No cough, shortness of breath. GASTROINTESTINAL: Denies nausea, diarrhea or abdominal pain. ORTHOPEDIC: The patient has the ulceration on her right lateral ankle and the toes of the right second and third toes. Others systems in a 14-point review of systems are negative. PHYSICAL EXAMINATION: VITAL SIGNS: Include temperature 36.3, pulse 90, respiration of 19, blood [facility] [address] [place] [address] CONSULTATION Name: SYDNEY STEINBERG [facility] IN .R.#: [id number] Admission: 10/27/21 Attend Phys: Michael Melchor, Discharge: 10/29/21 Date of : 55 Report #: [id number] pressure 144/85. GENERAL: This is a chronically ill-appearing female patient who appears to be in minimal distress. HEENT: Normocephalic. NECK: Supple. LUNGS: Clear. ABDOMEN: Soft, bowel sounds present. EXTREMITIES: Lower extremities demonstrates a circular ulcer on the right lateral malleolus. She has some dry eschar on the dorsal aspect of the right second toe and a lesser amount on the dorsal aspect of the right third toe. These areas are not overtly infected. LABORATORY DATA: Include a point of take care testing, glucose 196. CLINICAL IMPRESSION: 1. Venous type ulceration to the right lateral malleolus, which is relatively healthy, clean and granulating. 2. Abrasions to the right second and third toes. 3. Depression with possible suicidal ideation. 4. Type 2 diabetes mellitus. 5. Hypertension. RECOMMENDATIONS: At this point time, we will continue with Aquacel Ag to the lateral malleolus covered by bordered foam to be changed daily. We will recommend Betadine paint to the second and third toes and otherwise left open to air. She should wear socks at all times. Continue with medical management, nutritional support. I appreciate being asked to see her in consultation. <ELECTRONICALLY SIGNED> By: Thor Perez MD 10/30/21 1101 1158 2301 Thor Perez MD /nt
--- NOTE | 2021-10-31 16:57 | D ---
[facility] [place] [address] DISCHARGE SUMMARY Name: SYDNEY STEINBERG Room #: 520A-A [facility] IN M.R.#: [id number] Admission: 10/27/21 Attend Phys: Michael Melchor DO Discharge: 10/29/21 Date of : 55 Report #: [id number] THIS REPORT FOR: cc: Keyla Arguello Beth RNP Kerstein, Andrew H. DO ~ DATE OF SERVICE: 10/30/2021 PSYCHIATRIC DISCHARGE SUMMARY ATTENDING PSYCHIATRIST: Michael Melchor D.O. OPERATIONS MANAGER: Lorenzo Payton M.D. WOUND ROOFING APPLICATOR: Thor Perez M.D. DISCHARGE DIAGNOSES: Major neurocognitive disorder, likely vascular in etiology; adjustment disorder, resolved; history of major depressive episode, urinary tract infection, gastroesophageal reflux disease, neuropathic pain, diabetes mellitus, failure to thrive, gait abnormality, least moderate protein-calorie malnutrition. The patient is being discharged to her home. Her and a son to provide 24-hour care. Attendant care has been recommended. Prescription from home health was given as well. The patient is basically up with assist with a walker for short distances. Regular diet at this point as she has been hypoglycemic. DISCHARGE MEDICATIONS: Carafate 1 gram 4 times daily for history of gastritis, aspirin 325 mg oral daily for heart protection; Neurontin 400 mg oral 3 times a day for neuropathic pain, mood stabilization; Tradjenta 5 mg oral daily for diabetes mellitus, oxybutynin 5 mg oral 3 times daily for urinary incontinence, levofloxacin 500 mg oral daily for 6 more days for UTI, duloxetine 90 mg oral daily for depression history, pantoprazole 40 mg oral daily at 0700. DIET: Fairly relaxed diabetic diet. LABORATORY DATA: Significant laboratories this admission, CBC was grossly normal. Chemistries, she had some mild MATEO on most recent labs on 10/29/2021 with creatinine 1.2, BUN 26. Urine showed trace glucose, 1-9 bacteria, some leukocytes, 2+ leukocyte esterase. On culture though, this came back as 10,000 CFUs of normal rachid, not indicative of infection. REASON FOR ADMISSION: Basically, a 65-year-old female well known to us, presented to the ER with abdominal pain, later admitted that she was actively suicidal. She had been admitted to [facility] in September. HOSPITAL COURSE: The patient had an unfortunate issue with blood cultures. [address] [address] DISCHARGE SUMMARY Name: SYDNEY STEINBERG Room #: 520A-A [facility] IN ..#: [id number] Admission: 10/27/21 Attend Phys: Michael Melchor, Discharge: 10/29/21 Date of : 55 Report #: [id number] There was a set drawn in the ER that came back positive for Gram-positive cocci, later identified as Staph epidermidis. The hospitalist had ordered repeat blood cultures, which were negative. Unfortunately, just prior to planned discharge on 10/29 and there was some question if the blood cultures actually needed to be treated. Urinalysis had still not been obtained, so I elected to cancel the discharge from 10/29 and get the urine specimen and observe for further infection and give her an IV fluid bolus. This was accomplished. Also, during the hospitalization, it came out that quite frankly against medical advice the patient's removed her from [facility]. All practitioners including myself and Dr. Perez who she sees in his wound clinic believe she would be best served being in a 24-hour care facility. VITAL SIGNS: On day of discharge, temperature 35.9, pulse 82, respirations 17, BP 103/65, BMI 18.1. Weight 50.802 kilos. GENERAL: Well-developed, ill, frail, kyphotic-appearing female, in wheelchair. MENTAL STATUS EXAMINATION: Well-developed, ill-appearing female. Attention and concentration intact. Speech soft, normal rate. Thought process linear and goal directed. Thought content focused on discharging from hospital. Denied SI, HI. No auditory or visual tactile hallucinations. Mood okay. Affect congruent and euthymic. Memory not formally tested, noted to be impaired. Insight limited. Judgment limited. Fund of knowledge, no greater than average. Prognosis for this patient is guarded given the fact that she and her are going with living and trying to make it at home when they have been advised she would be better off in a facility. <ELECTRONICALLY SIGNED> By: Michael Melchor DO 10/31/21 1657 2310 0016 Michael Melchor DO /nt
== END 2021-10-29 13:00 | disposition home or self-care (01) | DRG 881 ==
LOC: SBH
PROVIDERS: Internal Medicine; Nurse Practitioner Psychiatric/Mental Health; ADMIT Psychiatry & Neurology Psychiatry; ATTEND Psychiatry & Neurology Psychiatry
DX: F32.9 Major depressive disorder, single episode, unspecified (principal); F01.50 Vascular dementia, unspecified severity, without behavioral disturbance, psychotic disturbance, mood disturbance, and anxiety; N17.9 Acute kidney failure, unspecified; R45.851 Suicidal ideations; L97.419 Non-pressure chronic ulcer of right heel and midfoot with unspecified severity; N39.0 Urinary tract infection, site not specified; R78.81 Bacteremia; Z68.1 Body mass index [BMI] 19.9 or less, adult; E11.40 Type 2 diabetes mellitus with diabetic neuropathy, unspecified; Z20.822 Contact with and (suspected) exposure to COVID-19; F43.20 Adjustment disorder, unspecified; M81.0 Age-related osteoporosis without current pathological fracture; K21.9 Gastro-esophageal reflux disease without esophagitis; S90.414A Abrasion, right lesser toe(s), initial encounter; B95.7 Other staphylococcus as the cause of diseases classified elsewhere; R53.81 Other malaise; M06.9 Rheumatoid arthritis, unspecified; G47.00 Insomnia, unspecified; E78.5 Hyperlipidemia, unspecified; F41.1 Generalized anxiety disorder; R62.7 Adult failure to thrive; Z87.81 Personal history of (healed) traumatic fracture; Z98.84 Bariatric surgery status; X58.XXXA Exposure to other specified factors, initial encounter; Y93.89 Activity, other specified; Y92.89 Other specified places as the place of occurrence of the external cause; Y99.8 Other external cause status
CPT/HCPCS: 10880

== ENCOUNTER → 2021-11-08 | Outpatient (CLI) | payer OTHER ==
[~2021-11-08] MED LIST changes: +CEPHALEXIN500 MG PO; +LEVOFLOXACIN500 MG PO
== END ==
LOC: HYPER 08:06
PROVIDERS: ATTEND Emergency Medicine Emergency Medical Services
DX: E11.622 Type 2 diabetes mellitus with other skin ulcer (principal); L97.312 Non-pressure chronic ulcer of right ankle with fat layer exposed; E11.621 Type 2 diabetes mellitus with foot ulcer; L97.511 Non-pressure chronic ulcer of other part of right foot limited to breakdown of skin; S80.812D Abrasion, left lower leg, subsequent encounter; S90.424D Blister (nonthermal), right lesser toe(s), subsequent encounter; S90.425D Blister (nonthermal), left lesser toe(s), subsequent encounter; L84 Corns and callosities; E11.43 Type 2 diabetes mellitus with diabetic autonomic (poly)neuropathy; E11.36 Type 2 diabetes mellitus with diabetic cataract; H26.9 Unspecified cataract; H54.8 Legal blindness, as defined in USA; K21.9 Gastro-esophageal reflux disease without esophagitis; F32.9 Major depressive disorder, single episode, unspecified; Z79.4 Long term (current) use of insulin; Z90.49 Acquired absence of other specified parts of digestive tract; X58.XXXD Exposure to other specified factors, subsequent encounter

== ENCOUNTER 2021-12-31 09:32 | Emergency (ER) | payer OTHER ==
[~2021-12-31] VITALS: Ht 170.2 cm; Wt 55.3 kg
[2021-12-31 09:54] LABS: ABSOLUTE NEUTROPHILS 7.4 thou/uL (1.4-8.2); BASOPHILS 0.4 % (0.0-2.0); HEMATOCRIT 36.4 % (37.0-47.0); HEMOGLOBIN 11.7 gm/dL (12.0-15.0); LYMPHOCYTES 13.1 % (24.0-44.0); MCH 30.9 pg (26.0-34.0); MCHC 32.1 g/dL (28.0-37.0); MCV 96.3 fL (80.0-100.0); MONOCYTES 4.7 % (1.0-8.0); PLATELET COUNT 309 thou/uL (150-400); POLYS 80.8 % (36.0-66.0); RBC 3.78 mil/uL (4.20-5.00); RDW 15.9 % (10.5-14.5); WBC 9.1 thou/uL (4.0-11.0)
[2021-12-31] MEDS ORDERED: TRAZODONE HCL50 MG PO (10:37)
[2021-12-31] MEDS ORDERED: ARIPIPRAZOLE10 MG PO (10:38)
[2021-12-31] MEDS ORDERED: LANTUS SUBQ (10:39)
[2021-12-31 10:50] LABS: URINE BILIRUBIN NEGATIVE (Negative); URINE BLOOD NEGATIVE (Negative); URINE CLARITY CLEAR; URINE COLOR YELLOW; URINE GLUCOSE-RANDOM* 2+ (Negative); URINE KETONES TRACE (Negative); URINE LEUKOCYTES-REFLEX NEGATIVE (Negative); URINE NITRITE-REFLEX NEGATIVE (Negative); URINE PROTEIN (DIPSTICK) NEGATIVE (Negative); URINE UROBILINOGEN 0.2 E.U./dl (0.2-1.0)
[2021-12-31 11:07] VITALS: BP 157/80
[2021-12-31 11:10] LABS: ALBUMIN 2.7 g/dL (3.4-5.0); CALCIUM 9.4 mg/dL (8.5-10.1); CREATININE 0.9 mg/dL (0.6-1.0); POTASSIUM 4.7 mmol/L (3.5-5.1); TOTAL BILIRUBIN 0.5 mg/dL (0.2-1.0); TOTAL PROTEIN 6.6 g/dL (6.4-8.2)
--- NOTE | 2022-01-03 07:34 | EKG ---
[place] [address] [facility] [place] [address] ELECTROCARDIOGRAM REPORT Name: SYDNEY STEINBERG [id number] Admission: 12/31/21 Attend Phys: Discharge: 12/31/21 Date of : 55 Report #: [id number] [facility] ED Test Date: 2021-12-31 Test Time: 09:56:12 Pat Name: SYDNEY STEINBERG Department: Room: Gender: F Social Work Instructor: : 1955 Requested By: Prabhu Ashley Order Number: [id number] MD: Semaj Mercedes Measurements Intervals [place] Rate: 81 P: RI: QRS: 62 QRSD: 82 T: 83 QT: 394 QTc: 458 Interpretive Statements AFIB Borderline low voltage, extremity leads Compared to ECG 10/26/2021 19:44:16 Sinus rhythm no longer present Electronically Signed On 01-03-2022 7:34:12 [employer]Y [employer]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
== END 2021-12-31 12:56 | disposition home or self-care (01) ==
LOC: ER 09:32
PROVIDERS: Emergency Medicine
DX: E86.0 Dehydration (principal); R63.0 Anorexia; R53.1 Weakness; Z20.822 Contact with and (suspected) exposure to COVID-19; Z79.4 Long term (current) use of insulin; Z79.899 Other long term (current) drug therapy

== ENCOUNTER → 2022-01-03 | Outpatient (CLI) | payer OTHER ==
[~2022-01-03] MED LIST changes: +ARIPIPRAZOLE10 MG PO
== END ==
LOC: HYPER 08:45
PROVIDERS: ATTEND Emergency Medicine Emergency Medical Services
DX: E11.622 Type 2 diabetes mellitus with other skin ulcer (principal); L97.312 Non-pressure chronic ulcer of right ankle with fat layer exposed; S80.812D Abrasion, left lower leg, subsequent encounter; S80.811D Abrasion, right lower leg, subsequent encounter; E11.43 Type 2 diabetes mellitus with diabetic autonomic (poly)neuropathy; B35.1 Tinea unguium; H54.8 Legal blindness, as defined in USA; K31.84 Gastroparesis; E11.36 Type 2 diabetes mellitus with diabetic cataract; H26.9 Unspecified cataract; F32.9 Major depressive disorder, single episode, unspecified; Z79.4 Long term (current) use of insulin; Z79.899 Other long term (current) drug therapy; X58.XXXD Exposure to other specified factors, subsequent encounter